=== PATIENT | female | born 1970 | race Caucasian/White ===

== ENCOUNTER 2020-09-22 14:12 | Outpatient (REF) | payer OTHER, SELFPAY | END 2020-09-22 14:13 | disposition home or self-care (01) | LOC: HO.LNP 14:12 | PROVIDERS: Visit Provider Nurse Practitioner Family | DX: J32.9 Chronic sinusitis, unspecified (principal) | CPT/HCPCS: U0003 ==

== ENCOUNTER 2020-11-23 14:10 | Outpatient (REF) | payer OTHER, SELFPAY ==
[2020-11-23 14:30] LABS: COVID-19 Test Negative (Negative); IDNOW Serial# 55D5AD1C
== END 2020-11-23 14:11 | disposition home or self-care (01) ==
LOC: HO.EMPCOV 14:10
PROVIDERS: PCP Internal Medicine; Visit Provider Internal Medicine
DX: Z20.822 Contact with and (suspected) exposure to COVID-19 (principal)
CPT/HCPCS: 36415; 87635; C9803

== ENCOUNTER 2020-11-30 09:41 | Outpatient (REF) | payer OTHER, SELFPAY ==
[2020-11-30 10:02] LABS: COVID-19 Test Negative (Negative)
== END 2020-11-30 09:42 | disposition home or self-care (01) ==
LOC: HO.EMPCOV 09:41
PROVIDERS: Visit Provider Internal Medicine
DX: Z20.822 Contact with and (suspected) exposure to COVID-19 (principal)
CPT/HCPCS: 36415; 87635; C9803

== ENCOUNTER 2020-12-01 14:52 | Outpatient (REF) | payer OTHER, SELFPAY ==
--- NOTE | 2020-12-01 14:58 | XR_ITS ---
EXAMINATION: XR SINUSES CLINICAL INFORMATION: Chronic sinusitis. COMPARISON: None TECHNIQUE: 3 views of the sinuses were obtained. FINDINGS: Paranasal sinuses appear clear without air-fluid levels. No fractures are identified. No radiodense foreign bodies. The paranasal sinuses are well-aerated as well. XR/XR sinus min 3V IMPRESSION: Unremarkable sinus exam.
== END 2020-12-01 14:53 | disposition home or self-care (01) ==
LOC: HO.XRAY 14:52
PROVIDERS: Visit Provider Internal Medicine
DX: J32.9 Chronic sinusitis, unspecified (principal)
CPT/HCPCS: 70220

== ENCOUNTER 2021-02-21 13:57 | Outpatient (REF) | payer OTHER, SELFPAY ==
[2021-02-21 14:16] LABS: COVID-19 Test Negative (Negative)
== END 2021-02-21 13:58 | disposition home or self-care (01) ==
LOC: HO.EMPCOV 13:57
PROVIDERS: Visit Provider Internal Medicine
DX: Z20.822 Contact with and (suspected) exposure to COVID-19 (principal)
CPT/HCPCS: 36415; 87635; C9803

== ENCOUNTER → 2021-02-22 08:01 | Outpatient (BNVA) | payer OTHER, SELFPAY | PROVIDERS: PCP Internal Medicine; Visit Provider Obstetrics & Gynecology ==

== ENCOUNTER → 2021-07-12 11:15 | Outpatient (BNVA) | payer OTHER, SELFPAY | PROVIDERS: PCP Internal Medicine; Visit Provider Obstetrics & Gynecology ==

== ENCOUNTER → 2021-10-20 15:54 | Outpatient (BNVA) | payer OTHER, SELFPAY | PROVIDERS: PCP Internal Medicine; Visit Provider Advanced Practice Midwife ==

== ENCOUNTER → 2021-10-26 15:33 | Outpatient (BNVA) | payer OTHER, SELFPAY | PROVIDERS: PCP Internal Medicine; Visit Provider Advanced Practice Midwife ==

== ENCOUNTER → 2021-10-30 15:26 | Outpatient (BNVA) | payer OTHER, SELFPAY | PROVIDERS: PCP Internal Medicine; Visit Provider Advanced Practice Midwife ==

== ENCOUNTER 2021-11-22 10:00 | Outpatient (REF) | payer OTHER, SELFPAY ==
[2021-11-22 10:15] LABS: MANUAL DIFF FLAG NO
[2021-11-22 10:51] LABS: Basophils Percent Auto 1.2 % (0-2); Eosinophils Absolute Auto 0.1 X10*3/uL (0.0-0.4); Eosinophils Percent Auto 1.8 % (0-4); Hematocrit 26.7 % (37.0-47.0); Hemoglobin 7.5 g/dl (12.0-16.0); Imm Gran Abs Auto 0.01 X10*3/uL (0.00-0.03); Imm Gran Pct Auto 0.3 % (0.0-0.4); Lymphocytes Absolute Auto 1.1 X10*3/uL (1.2-4.9); Lymphocytes Percent Auto 32.2 % (20-40); Mean Corpuscular HGB Conc 28.1 g/dl (31.0-35.0); Mean Corpuscular Hemoglobin 20.2 pg (27.0-33.0); Mean Platelet Volume 9.4 fL (9.4-12.3); Monocytes Absolute Auto 0.3 X10*3/uL (0.1-1.2); Monocytes Percent Auto 8.7 % (2-11); Neutrophils Absolute Auto 1.9 x10*3/uL (2.0-8.3); Neutrophils Percent Auto 55.8 % (45-73); Platelet Count 296 X10*3/uL (160-400); Red Blood Count 3.71 X10*6/uL (4.20-5.50); Red Cell Distribution Width 16.5 % (11.0-16.0); White Blood Count 3.3 X10*3/uL (4.8-10.8)
[2021-11-22 11:32] LABS: Alanine Aminotransferase 19 U/L (0-31); Anion Gap 11 (12-20); Aspartate Amino Transferase 22 U/L (5-31); Blood Urea Nitrogen 15 mg/dL (9-16); Calcium 9.4 mg/dL (8.4-10.2); Carbon Dioxide 28 mmol/L (22-29); Chloride 103 mmol/L (96-108); Cholesterol 154 mg/dL; Estimated Glomerular Filt Rate > 60; Glucose Fasting 93 mg/dL (60-99); HDL Cholesterol 47 mg/dL; LDL Cholesterol Calculated 90 mg/dl; Potassium 3.4 mmol/L (3.3-5.1); Sodium 139 mmol/L (135-145); Triglycerides 88 mg/dL
[2021-11-22 11:45] LABS: TSH reflex Free T4 1.09 uIU/mL (0.32-4.0); Vitamin D 25-OH Total 29.8 ng/mL (>30)
== END 2021-11-22 10:01 | disposition home or self-care (01) ==
LOC: HO.LAB 10:00
PROVIDERS: PCP Internal Medicine; Visit Provider Internal Medicine
DX: Z00.01 Encounter for general adult medical examination with abnormal findings (principal); K58.9 Irritable bowel syndrome, unspecified; I10 Essential (primary) hypertension; E28.319 Asymptomatic premature menopause; I78.0 Hereditary hemorrhagic telangiectasia; E04.9 Nontoxic goiter, unspecified; E55.9 Vitamin D deficiency, unspecified; F41.8 Other specified anxiety disorders
CPT/HCPCS: 36415; 80048; 80061; 82306; 84443; 84450; 84460; 85025

== ENCOUNTER 2021-11-22 15:42 | Emergency (ER) | payer OTHER, SELFPAY ==
[2021-11-22 16:34] VITALS: BP 138/82; PULSE 92; RESP 18; TEMP 36.8; O2SAT 98; BMI 22.6
[2021-11-22 16:52] LABS: MANUAL DIFF FLAG NO
[2021-11-22 16:53] LABS: Basophils Percent Auto 0.9 % (0-2); Eosinophils Absolute Auto 0.1 X10*3/uL (0.0-0.4); Eosinophils Percent Auto 1.4 % (0-4); Hematocrit 25.3 % (37.0-47.0); Hemoglobin 7.3 g/dl (12.0-16.0); Imm Gran Abs Auto 0.01 X10*3/uL (0.00-0.03); Imm Gran Pct Auto 0.2 % (0.0-0.4); Lymphocytes Absolute Auto 1.6 X10*3/uL (1.2-4.9); Lymphocytes Percent Auto 37.4 % (20-40); Mean Corpuscular HGB Conc 28.9 g/dl (31.0-35.0); Mean Corpuscular Hemoglobin 20.5 pg (27.0-33.0); Mean Corpuscular Volume 71.1 fL (80.0-98.0); Mean Platelet Volume 8.4 fL (9.4-12.3); Monocytes Absolute Auto 0.4 X10*3/uL (0.1-1.2); Monocytes Percent Auto 9.6 % (2-11); Neutrophils Absolute Auto 2.2 x10*3/uL (2.0-8.3); Neutrophils Percent Auto 50.5 % (45-73); Platelet Count 261 X10*3/uL (160-400); Red Blood Count 3.56 X10*6/uL (4.20-5.50); Red Cell Distribution Width 16.7 % (11.0-16.0); White Blood Count 4.4 X10*3/uL (4.8-10.8)
[2021-11-22 17:15] LABS: Anion Gap 12 (12-20); Blood Urea Nitrogen 16 mg/dL (9-16); Calcium 9.4 mg/dL (8.4-10.2); Carbon Dioxide 27 mmol/L (22-29); Chloride 103 mmol/L (96-108); Creatinine Clr Calc Pharmacy 66.9; Estimated Glomerular Filt Rate > 60; Glucose Random 97 mg/dL (60-115); Potassium 3.1 mmol/L (3.3-5.1); Sodium 139 mmol/L (135-145)
== END 2021-11-22 20:12 | disposition left against medical advice (07) ==
PROVIDERS: Emergency Provider Emergency Medicine
DX: D64.9 Anemia, unspecified (principal); R10.9 Unspecified abdominal pain; I10 Essential (primary) hypertension
CPT/HCPCS: 36415; 80048; 85025; 99282; 99283

== ENCOUNTER → 2021-11-24 09:36 | Outpatient (BNV) | payer OTHER, SELFPAY | PROVIDERS: PCP Internal Medicine; Visit Provider Internal Medicine | DX: I78.0 Hereditary hemorrhagic telangiectasia (principal); D50.0 Iron deficiency anemia secondary to blood loss (chronic) | CPT/HCPCS: 99213; 99214 ==

== ENCOUNTER 2021-11-24 11:57 | Outpatient (REF) | payer OTHER, SELFPAY | END 2021-11-24 11:58 | disposition home or self-care (01) | LOC: HO.MDS 11:57 | PROVIDERS: Visit Provider Internal Medicine | DX: D50.9 Iron deficiency anemia, unspecified (principal); I78.0 Hereditary hemorrhagic telangiectasia | CPT/HCPCS: 96365; J2916; Q0163 ==

== ENCOUNTER 2021-11-29 07:31 | Outpatient (REF) | payer OTHER, SELFPAY | END 2021-11-29 07:32 | disposition home or self-care (01) | LOC: HO.MDS 07:31 | PROVIDERS: PCP Internal Medicine; Visit Provider Internal Medicine | DX: I78.0 Hereditary hemorrhagic telangiectasia (principal); D50.9 Iron deficiency anemia, unspecified | CPT/HCPCS: 96365; 96366; 96375; J1200; J1750; Q0163 ==

== ENCOUNTER 2021-12-01 10:56 | Outpatient (REF) | payer OTHER, SELFPAY ==
--- NOTE | ~2021-12-01 | US_ITS ---
EXAMINATION: US THYROID CLINICAL INFORMATION: Nontoxic goiter, unspecified. COMPARISON: None TECHNIQUE: Linear transducer henson-scale and color Doppler examination with attention to the region of the thyroid. FINDINGS: SIZE: Measurements of the thyroid lobes and nodules are given in sagittal, anteroposterior and transverse dimensions respectively. Right Thyroid Lobe: 6.9 x 2.7 x 3.6 cm, volume 35.1 mL. Parenchyma: The gland echotexture is heterogeneous. Thyroid vascularity is increased. Left Thyroid Lobe: 5.5 x 1.9 x 2.3 cm, volume 12.6 mL. Parenchyma: The gland echotexture is heterogeneous. Thyroid vascularity is increased. Isthmus: 0.6 cm in maximum AP dimension. Estimated total number of nodules greater than or equal to 1 cm: 2. Instructor Private nodules are described as follows: 1. Location: Right mid. Size: 3.6 x 2.6 x 4.2 cm, volume 20.4 mL. Nodule characteristics: Composition: Solid (2). Echogenicity: Hyperechoic (1). Shape: Not taller than wide (0). Margins: Smooth (0). Echogenic Foci: None (0). ACR TI-RADS total points: 3 ACR TI-RADS category: 3 2. Location: Left mid. Size: 2.3 x 1.7 x 2.8 cm, volume 5.4 mL. Nodule characteristics: Composition: Mixed cystic and solid (1). Echogenicity: Isoechoic (1). Shape: Not taller than wide (0). Margins: Smooth (0). Echogenic Foci: None (0). ACR TI-RADS total points: 2 ACR TI-RADS category: 2 NODES: No lymphadenopathy is seen in the tissue surrounding the thyroid gland. US/US thyroid IMPRESSION: Hypervascular significantly enlarged heterogeneous thyroid gland especially right lobe with 2 heterogeneous enlarged nodules with TI-RADS 3 and 2 respectively. Recommend continued yearly followup. ACR TI-RADS RECOMMENDATION REFERENCE: Ultrasound-guided fine-needle aspiration, followup ultrasound, no further follow up. * TR1 (0 point) and TR 2 (2 points): No FNA or follow up * TR3 (3 points): FNA if more than or equal to 2.5 cm in maximum dimension, followup ultrasound in 1, 3 and 5 years if 1.5 to 2.4 cm in maximum dimension. * TR4 (4-6 points): FNA if more than or equal to 1.5 cm in maximum dimension, followup ultrasound in 1, 2, 3 and 5 years if 1 to 1.4 cm in maximum dimension. * TR5 (more than or equal to 7 points): FNA if more than or equal to 1 cm in maximum dimension, followup ultrasound every year for 5 years if 0.5 to 0.9 cm in maximum dimension. * TR3, TR4 or TR5 nodules that are below the size threshold for follow up receive no follow up.
== END 2021-12-01 10:57 | disposition home or self-care (01) ==
LOC: HO.US 10:56
PROVIDERS: PCP Internal Medicine; Visit Provider Internal Medicine
DX: E04.9 Nontoxic goiter, unspecified (principal)
CPT/HCPCS: 76536

== ENCOUNTER → 2022-03-02 08:48 | Outpatient (BNVA) | payer OTHER, SELFPAY | PROVIDERS: PCP Internal Medicine; Visit Provider Internal Medicine Endocrinology, Diabetes & Metabolism | DX: Z13.89 Encounter for screening for other disorder (principal) ==

== ENCOUNTER 2022-03-13 11:43 | Outpatient (REF) | payer OTHER, SELFPAY ==
[2022-03-13 12:02] LABS: MANUAL DIFF FLAG NO
[2022-03-13 12:11] LABS: Basophils Percent Auto 0.8 % (0-2); Eosinophils Absolute Auto 0.1 X10*3/uL (0.0-0.4); Eosinophils Percent Auto 1.4 % (0-4); Hematocrit 37.3 % (37.0-47.0); Hemoglobin 12.2 g/dl (12.0-16.0); Imm Gran Abs Auto 0.01 X10*3/uL (0.00-0.03); Imm Gran Pct Auto 0.2 % (0.0-0.4); Lymphocytes Absolute Auto 1.5 X10*3/uL (1.2-4.9); Lymphocytes Percent Auto 31.9 % (20-40); Mean Corpuscular HGB Conc 32.7 g/dl (31.0-35.0); Mean Corpuscular Hemoglobin 28.9 pg (27.0-33.0); Mean Corpuscular Volume 88.4 fL (80.0-98.0); Monocytes Absolute Auto 0.5 X10*3/uL (0.1-1.2); Monocytes Percent Auto 9.7 % (2-11); Neutrophils Absolute Auto 2.7 x10*3/uL (2.0-8.3); Platelet Count 287 X10*3/uL (160-400); Red Blood Count 4.22 X10*6/uL (4.20-5.50); Red Cell Distribution Width 12.7 % (11.0-16.0); White Blood Count 4.8 X10*3/uL (4.8-10.8)
[2022-03-13 12:43] LABS: Alanine Aminotransferase 22 U/L (0-31); Albumin Level 3.9 g/dL (3.5-5.0); Alkaline Phosphatase 104 U/L (39-117); Anion Gap 12 (12-20); Aspartate Amino Transferase 25 U/L (5-31); Bilirubin Total 0.3 mg/dL (0.0-1.0); Blood Urea Nitrogen 14 mg/dL (9-16); Calcium 9.6 mg/dL (8.4-10.2); Carbon Dioxide 29 mmol/L (22-29); Chloride 104 mmol/L (96-108); Estimated Glomerular Filt Rate > 60; Glucose Random 91 mg/dL (60-115); Iron 99 mcg/dL (30-160); Percent Iron Saturation 25 % (15-50); Phosphorus 3.8 mg/dL (2.7-4.5); Sodium 141 mmol/L (135-145); Total Iron Binding Capacity 400 mcg/dL (228-428); Unsaturated Iron Binding 301 ug/dL
[2022-03-13 12:48] LABS: Prothrombin Time 11.8 SEC (9.9-13.0)
[2022-03-13 12:51] LABS: Partial Thromboplastin Time 34.7 SEC (24.1-38.0)
[2022-03-13 12:57] LABS: Ferritin 8 ng/mL (10-250); HCG Quantitative < 2 mIU/mL
== END 2022-03-13 11:44 | disposition home or self-care (01) ==
LOC: HO.LAB 11:43
PROVIDERS: PCP Internal Medicine; Visit Provider Internal Medicine Hematology & Oncology
DX: I78.0 Hereditary hemorrhagic telangiectasia (principal)
CPT/HCPCS: 36415; 80053; 82728; 83540; 84100; 84702; 85025; 85610; 85730

== ENCOUNTER 2022-03-21 10:46 | Outpatient (REF) | payer OTHER, SELFPAY ==
--- NOTE | ~2022-03-21 | US_ITS ---
EXAMINATION: ULTRASOUND-GUIDED FINE-NEEDLE ASPIRATION OF THYROID NODULES CLINICAL INFORMATION: 2 heterogeneous thyroid nodules COMPARISON: Ultrasound thyroid 12/01/2021 US/US guided fine needle asp add FINDINGS/IMPRESSION: Ultrasound guided fine-needle biopsy aspiration of both thyroid nodules was dictated on accession number is [id number] [facility] [place] [facility] [place]
--- NOTE | ~2022-03-21 | US_ITS ---
EXAMINATION: ULTRASOUND-GUIDED FINE NEEDLE THYROID BIOPSY CLINICAL INFORMATION: Heterogeneous thyroid gland with 2 large nodules in the right and left thyroid lobe for biopsy. COMPARISON: Thyroid ultrasound 12/01/2021. TECHNIQUE: Following explaining ultrasound-guided fine-needle aspiration biopsy procedure, benefits and risks, a written consent was obtained. Patient was placed supine with head extended on ultrasound stretcher. Preliminary ultrasound imaging was obtained through the right and left neck. Markers were placed on the skin prior to biopsy. The entire anterior neck was cleaned and draped in usual sterile manner with 2% chlorhexidine solution. 1% lidocaine was administered over the right and left neck markers. Under sterile ultrasound guidance a 4 pass fine-needle aspiration of left thyroid nodule was performed. Subsequently a 3 pass fine-needle aspiration biopsy of right nodule was performed. Postprocedure complete hemostasis achieved at anterior neck and Band-Aid applied. Instructions were given in case patient had pain or bleeding. FINDINGS: There are large heterogeneous right and left thyroid nodules. Successful ultrasound-guided fine-needle aspiration biopsy. Preliminary pathology results suspicious cells in the left thyroid nodule. Definite results are pending. US/US guided fine needle asp IMPRESSION: Successful ultrasound-guided fine-needle aspiration biopsy of large left and large right thyroid nodules.
[2022-03-21] MEDS: Lidocaine HCl 1 % MPF 5 ML VIAL 4 ML SUBCUT (12:04)
== END 2022-03-21 10:47 | disposition home or self-care (01) ==
LOC: HO.US 10:46
PROVIDERS: Visit Provider Internal Medicine Endocrinology, Diabetes & Metabolism
DX: E04.2 Nontoxic multinodular goiter (principal)
CPT/HCPCS: 10005; 10006; 88172; 88173; 88177; 88305

== ENCOUNTER 2022-04-12 15:18 | Outpatient (REF) | payer OTHER, SELFPAY ==
[2022-04-12 15:38] LABS: MANUAL DIFF FLAG NO
[2022-04-12 15:45] LABS: Basophils Percent Auto 0.6 % (0-2); Eosinophils Absolute Auto 0.1 X10*3/uL (0.0-0.4); Eosinophils Percent Auto 1.6 % (0-4); Hematocrit 35.1 % (37.0-47.0); Hemoglobin 11.3 g/dl (12.0-16.0); Imm Gran Abs Auto 0.02 X10*3/uL (0.00-0.03); Imm Gran Pct Auto 0.3 % (0.0-0.4); Lymphocytes Absolute Auto 1.7 X10*3/uL (1.2-4.9); Lymphocytes Percent Auto 27.1 % (20-40); Mean Corpuscular HGB Conc 32.2 g/dl (31.0-35.0); Mean Corpuscular Hemoglobin 28.9 pg (27.0-33.0); Mean Corpuscular Volume 89.8 fL (80.0-98.0); Mean Platelet Volume 8.7 fL (9.4-12.3); Monocytes Absolute Auto 0.5 X10*3/uL (0.1-1.2); Monocytes Percent Auto 8.8 % (2-11); Neutrophils Absolute Auto 3.8 x10*3/uL (2.0-8.3); Neutrophils Percent Auto 61.6 % (45-73); Platelet Count 309 X10*3/uL (160-400); Red Blood Count 3.91 X10*6/uL (4.20-5.50); Red Cell Distribution Width 13.2 % (11.0-16.0); White Blood Count 6.2 X10*3/uL (4.8-10.8)
[2022-04-12 16:17] LABS: Alanine Aminotransferase 33 U/L (0-31); Albumin Level 3.7 g/dL (3.5-5.0); Alkaline Phosphatase 92 U/L (39-117); Anion Gap 12 (12-20); Aspartate Amino Transferase 28 U/L (5-31); Bilirubin Total 0.2 mg/dL (0.0-1.0); Blood Urea Nitrogen 13 mg/dL (9-16); Calcium 9.1 mg/dL (8.4-10.2); Carbon Dioxide 25 mmol/L (22-29); Chloride 107 mmol/L (96-108); Estimated Glomerular Filt Rate > 60; Glucose Random 123 mg/dL (60-115); Iron 35 mcg/dL (30-160); Percent Iron Saturation 9 % (15-50); Potassium 3.9 mmol/L (3.3-5.1); Sodium 140 mmol/L (135-145); Total Iron Binding Capacity 386 mcg/dL (228-428); Total Protein 6.6 g/dL (6.5-8.0); Unsaturated Iron Binding 351 ug/dL
[2022-04-12 16:39] LABS: Ferritin 10 ng/mL (10-250); HCG Quantitative < 2 mIU/mL
== END 2022-04-12 15:19 | disposition home or self-care (01) ==
LOC: HO.LAB 15:18
PROVIDERS: PCP Internal Medicine; Visit Provider Internal Medicine Hematology & Oncology
DX: I78.0 Hereditary hemorrhagic telangiectasia (principal)
CPT/HCPCS: 36415; 80053; 82728; 83540; 84702; 85025

== ENCOUNTER 2022-04-13 07:50 | Outpatient (REF) | payer OTHER, SELFPAY | END 2022-04-13 07:51 | disposition home or self-care (01) | LOC: HO.MDS 07:50 | PROVIDERS: PCP Internal Medicine; Visit Provider Internal Medicine | DX: D50.9 Iron deficiency anemia, unspecified (principal); I78.0 Hereditary hemorrhagic telangiectasia | CPT/HCPCS: 96365; 96366; J1200; J1750; Q0163 ==

== ENCOUNTER 2022-05-10 12:02 | Outpatient (REF) | payer OTHER, SELFPAY ==
[2022-05-10 12:32] LABS: MANUAL DIFF FLAG NO
[2022-05-10 12:39] LABS: Basophils Percent Auto 0.7 % (0-2); Eosinophils Absolute Auto 0.1 X10*3/uL (0.0-0.4); Eosinophils Percent Auto 1.5 % (0-4); Hematocrit 38.3 % (37.0-47.0); Hemoglobin 12.5 g/dl (12.0-16.0); Imm Gran Abs Auto 0.01 X10*3/uL (0.00-0.03); Imm Gran Pct Auto 0.2 % (0.0-0.4); Lymphocytes Absolute Auto 1.5 X10*3/uL (1.2-4.9); Lymphocytes Percent Auto 32.7 % (20-40); Mean Corpuscular HGB Conc 32.6 g/dl (31.0-35.0); Mean Corpuscular Hemoglobin 29.2 pg (27.0-33.0); Mean Corpuscular Volume 89.5 fL (80.0-98.0); Monocytes Absolute Auto 0.4 X10*3/uL (0.1-1.2); Monocytes Percent Auto 9.5 % (2-11); Neutrophils Absolute Auto 2.5 x10*3/uL (2.0-8.3); Neutrophils Percent Auto 55.4 % (45-73); Platelet Count 249 X10*3/uL (160-400); Red Blood Count 4.28 X10*6/uL (4.20-5.50); Red Cell Distribution Width 14.5 % (11.0-16.0); White Blood Count 4.5 X10*3/uL (4.8-10.8)
[2022-05-10 12:53] LABS: Alanine Aminotransferase 30 U/L (0-31); Albumin Level 3.8 g/dL (3.5-5.0); Alkaline Phosphatase 118 U/L (39-117); Anion Gap 11 (12-20); Aspartate Amino Transferase 29 U/L (5-31); Bilirubin Total 0.2 mg/dL (0.0-1.0); Blood Urea Nitrogen 14 mg/dL (9-16); Calcium 8.6 mg/dL (8.4-10.2); Carbon Dioxide 29 mmol/L (22-29); Chloride 104 mmol/L (96-108); Estimated Glomerular Filt Rate > 60; Glucose Random 95 mg/dL (60-115); Iron 70 mcg/dL (30-160); Percent Iron Saturation 25 % (15-50); Potassium 3.9 mmol/L (3.3-5.1); Sodium 140 mmol/L (135-145); Total Iron Binding Capacity 282 mcg/dL (228-428); Total Protein 6.3 g/dL (6.5-8.0); Unsaturated Iron Binding 212 ug/dL
[2022-05-10 13:13] LABS: Ferritin 165 ng/mL (10-250); HCG Quantitative < 2 mIU/mL
== END 2022-05-10 12:03 | disposition home or self-care (01) ==
LOC: HO.LAB 12:02
PROVIDERS: PCP Internal Medicine; Visit Provider Internal Medicine Hematology & Oncology
DX: I78.0 Hereditary hemorrhagic telangiectasia (principal)
CPT/HCPCS: 36415; 80053; 82728; 83540; 84702; 85025

== ENCOUNTER 2022-05-30 12:22 | Outpatient (REF) | payer OTHER, SELFPAY ==
[2022-05-30 13:23] LABS: Alanine Aminotransferase 41 U/L (0-31); Albumin Level 4.1 g/dL (3.5-5.0); Alkaline Phosphatase 136 U/L (39-117); Anion Gap 11 (12-20); Aspartate Amino Transferase 30 U/L (5-31); Bilirubin Total 0.3 mg/dL (0.0-1.0); Blood Urea Nitrogen 14 mg/dL (9-16); Calcium 9.4 mg/dL (8.4-10.2); Carbon Dioxide 29 mmol/L (22-29); Chloride 104 mmol/L (96-108); Estimated Glomerular Filt Rate > 60; Glucose Random 96 mg/dL (60-115); Potassium 3.8 mmol/L (3.3-5.1); Sodium 140 mmol/L (135-145)
[2022-05-30 13:37] LABS: Vitamin D 25-OH Total 32.6 ng/mL (>30)
== END 2022-05-30 12:23 | disposition home or self-care (01) ==
LOC: HO.LAB 12:22
PROVIDERS: PCP Internal Medicine; Visit Provider Internal Medicine
DX: I78.0 Hereditary hemorrhagic telangiectasia (principal); E55.9 Vitamin D deficiency, unspecified
CPT/HCPCS: 36415; 80053; 82306; 82550

== ENCOUNTER 2022-06-08 12:38 | Outpatient (REF) | payer OTHER, SELFPAY ==
[2022-06-08 12:43] LABS: MANUAL DIFF FLAG NO
[2022-06-08 13:02] LABS: Basophils Percent Auto 0.7 % (0-2); Eosinophils Absolute Auto 0.1 X10*3/uL (0.0-0.4); Eosinophils Percent Auto 1.3 % (0-4); Hematocrit 38.1 % (37.0-47.0); Imm Gran Abs Auto 0.01 X10*3/uL (0.00-0.03); Imm Gran Pct Auto 0.2 % (0.0-0.4); Lymphocytes Absolute Auto 1.7 X10*3/uL (1.2-4.9); Lymphocytes Percent Auto 31.7 % (20-40); Mean Corpuscular HGB Conc 34.1 g/dl (31.0-35.0); Mean Corpuscular Hemoglobin 29.6 pg (27.0-33.0); Mean Corpuscular Volume 86.8 fL (80.0-98.0); Mean Platelet Volume 8.9 fL (9.4-12.3); Monocytes Absolute Auto 0.5 X10*3/uL (0.1-1.2); Monocytes Percent Auto 8.6 % (2-11); Neutrophils Absolute Auto 3.1 x10*3/uL (2.0-8.3); Neutrophils Percent Auto 57.5 % (45-73); Platelet Count 290 X10*3/uL (160-400); Red Blood Count 4.39 X10*6/uL (4.20-5.50); Red Cell Distribution Width 13.2 % (11.0-16.0); White Blood Count 5.4 X10*3/uL (4.8-10.8)
[2022-06-08 13:30] LABS: Alanine Aminotransferase 28 U/L (0-31); Alkaline Phosphatase 123 U/L (39-117); Anion Gap 14 (12-20); Aspartate Amino Transferase 28 U/L (5-31); Bilirubin Total 0.2 mg/dL (0.0-1.0); Blood Urea Nitrogen 13 mg/dL (9-16); Calcium 9.2 mg/dL (8.4-10.2); Carbon Dioxide 29 mmol/L (22-29); Chloride 102 mmol/L (96-108); Estimated Glomerular Filt Rate > 60; Glucose Random 94 mg/dL (60-115); Iron 91 mcg/dL (30-160); Percent Iron Saturation 29 % (15-50); Potassium 3.7 mmol/L (3.3-5.1); Sodium 141 mmol/L (135-145); Total Iron Binding Capacity 319 mcg/dL (228-428); Total Protein 6.8 g/dL (6.5-8.0); Unsaturated Iron Binding 228 ug/dL
[2022-06-08 13:52] LABS: Ferritin 47 ng/mL (10-250); HCG Quantitative < 2 mIU/mL
== END 2022-06-08 12:39 | disposition home or self-care (01) ==
LOC: HO.LAB 12:38
PROVIDERS: PCP Internal Medicine; Visit Provider Internal Medicine Hematology & Oncology
DX: I78.0 Hereditary hemorrhagic telangiectasia (principal)
CPT/HCPCS: 36415; 80053; 82728; 83540; 84702; 85025

== ENCOUNTER 2022-07-09 10:34 | Outpatient (REF) | payer OTHER, SELFPAY ==
[2022-07-09 10:46] LABS: MANUAL DIFF FLAG NO
[2022-07-09 11:36] LABS: Basophils Percent Auto 0.9 % (0-2); Eosinophils Absolute Auto 0.1 X10*3/uL (0.0-0.4); Eosinophils Percent Auto 2.1 % (0-4); Hematocrit 35.9 % (37.0-47.0); Hemoglobin 11.9 g/dl (12.0-16.0); Imm Gran Abs Auto 0.01 X10*3/uL (0.00-0.03); Imm Gran Pct Auto 0.2 % (0.0-0.4); Lymphocytes Absolute Auto 1.3 X10*3/uL (1.2-4.9); Lymphocytes Percent Auto 30.7 % (20-40); Mean Corpuscular HGB Conc 33.1 g/dl (31.0-35.0); Mean Corpuscular Hemoglobin 29.5 pg (27.0-33.0); Mean Corpuscular Volume 89.1 fL (80.0-98.0); Mean Platelet Volume 9.3 fL (9.4-12.3); Monocytes Absolute Auto 0.4 X10*3/uL (0.1-1.2); Monocytes Percent Auto 8.2 % (2-11); Neutrophils Absolute Auto 2.5 x10*3/uL (2.0-8.3); Neutrophils Percent Auto 57.9 % (45-73); Platelet Count 280 X10*3/uL (160-400); Red Blood Count 4.03 X10*6/uL (4.20-5.50); Red Cell Distribution Width 13.2 % (11.0-16.0); White Blood Count 4.4 X10*3/uL (4.8-10.8)
[2022-07-09 12:10] LABS: Alanine Aminotransferase 24 U/L (0-31); Albumin Level 3.8 g/dL (3.5-5.0); Alkaline Phosphatase 120 U/L (39-117); Anion Gap 13 (12-20); Aspartate Amino Transferase 25 U/L (5-31); Bilirubin Total 0.2 mg/dL (0.0-1.0); Blood Urea Nitrogen 10 mg/dL (9-16); Carbon Dioxide 26 mmol/L (22-29); Chloride 106 mmol/L (96-108); Estimated Glomerular Filt Rate > 60; Glucose Random 84 mg/dL (60-115); Iron 43 mcg/dL (30-160); Percent Iron Saturation 12 % (15-50); Potassium 3.7 mmol/L (3.3-5.1); Sodium 141 mmol/L (135-145); Total Iron Binding Capacity 353 mcg/dL (228-428); Total Protein 6.6 g/dL (6.5-8.0); Unsaturated Iron Binding 310 ug/dL
[2022-07-09 12:32] LABS: Ferritin 14 ng/mL (10-250); HCG Quantitative < 2 mIU/mL
== END 2022-07-09 10:35 | disposition home or self-care (01) ==
LOC: HO.LAB 10:34
PROVIDERS: PCP Internal Medicine; Visit Provider Internal Medicine Hematology & Oncology
DX: I78.0 Hereditary hemorrhagic telangiectasia (principal)
CPT/HCPCS: 36415; 80053; 82728; 83540; 84702; 85025

== ENCOUNTER 2022-08-07 13:23 | Outpatient (REF) | payer OTHER, SELFPAY ==
[2022-08-07 13:36] LABS: MANUAL DIFF FLAG NO
[2022-08-07 14:20] LABS: Basophils Percent Auto 0.6 % (0-2); Eosinophils Absolute Auto 0.1 X10*3/uL (0.0-0.4); Eosinophils Percent Auto 2.1 % (0-4); Hematocrit 35.9 % (37.0-47.0); Hemoglobin 12.1 g/dl (12.0-16.0); Imm Gran Abs Auto 0.04 X10*3/uL (0.00-0.03); Imm Gran Pct Auto 0.8 % (0.0-0.4); Lymphocytes Absolute Auto 1.7 X10*3/uL (1.2-4.9); Lymphocytes Percent Auto 34.7 % (20-40); Mean Corpuscular HGB Conc 33.7 g/dl (31.0-35.0); Mean Corpuscular Hemoglobin 29.4 pg (27.0-33.0); Mean Corpuscular Volume 87.3 fL (80.0-98.0); Mean Platelet Volume 9.4 fL (9.4-12.3); Monocytes Absolute Auto 0.4 X10*3/uL (0.1-1.2); Monocytes Percent Auto 8.4 % (2-11); Neutrophils Absolute Auto 2.6 x10*3/uL (2.0-8.3); Neutrophils Percent Auto 53.4 % (45-73); Platelet Count 295 X10*3/uL (160-400); Red Blood Count 4.11 X10*6/uL (4.20-5.50); Red Cell Distribution Width 12.5 % (11.0-16.0); White Blood Count 4.8 X10*3/uL (4.8-10.8)
[2022-08-07 14:40] LABS: Alanine Aminotransferase 18 U/L (0-31); Alkaline Phosphatase 127 U/L (39-117); Anion Gap 15 (12-20); Aspartate Amino Transferase 22 U/L (5-31); Bilirubin Total 0.3 mg/dL (0.0-1.0); Blood Urea Nitrogen 8 mg/dL (9-16); Calcium 9.3 mg/dL (8.4-10.2); Carbon Dioxide 24 mmol/L (22-29); Chloride 108 mmol/L (96-108); Estimated Glomerular Filt Rate > 60; Glucose Random 81 mg/dL (60-115); Iron 34 mcg/dL (30-160); Percent Iron Saturation 10 % (15-50); Sodium 143 mmol/L (135-145); Total Iron Binding Capacity 357 mcg/dL (228-428); Total Protein 6.9 g/dL (6.5-8.0); Unsaturated Iron Binding 323 ug/dL
[2022-08-07 14:52] LABS: Ferritin 10 ng/mL (10-250); HCG Quantitative < 2 mIU/mL
== END 2022-08-07 13:24 | disposition home or self-care (01) ==
LOC: HO.LAB 13:23
PROVIDERS: PCP Internal Medicine; Visit Provider Internal Medicine Hematology & Oncology
DX: I78.0 Hereditary hemorrhagic telangiectasia (principal)
CPT/HCPCS: 36415; 80053; 82728; 83540; 84702; 85025

== ENCOUNTER 2022-09-26 10:38 | Outpatient (REF) | payer OTHER, SELFPAY ==
--- NOTE | 2022-09-26 11:22 | P.BOP_ITS ---
Brief Operative Note Date of Service: 09/26/22 Pre-op diagnosis: Multinodular Thyroid Procedure: This is doctor Rosa Carlton. This is an ultrasound-guided fine-needle aspiration report. Date of Examination: Indication: Multinodular Thyroid Porcedure: Procedure was explained to the patient. Alternatives, the risk and benefits were discussed. Written consent was obtained. A time-out was also obtained. After sterile preparation, fine-needle aspiration of a left mid pole 2.8 cm thyroid nodule was performed using direct ultrasound guidance to confirm accurate needle placement. Four aspirations were made using 25 gauge needles. Samples were submitted for cytology. 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 Our attention was then turned to the right mid pole. Fine-needle aspiration of a right mid pole 4.2 cm thyroid nodule was performed using direct ultrasound guidance to confirm accurate needle placement. Four aspirations were made using 27 gauge needles. Samples were submitted for cytology. 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 The patient tolerated the procedure well. Aftercare instructions were provided. Impression: Uncomplicated fine needle aspiration biopsy of a left mid pole 2.8 cm thyroid nodule and a right mid pole 4.2 cm thyroid nodule under ultrasound guidance. Surgeon: Rosa Carlton, DO Was an Environmental Studies Faculty Member used for this Procedure?: No Estimated blood loss (mL): 0
[2022-09-26] MEDS: Lidocaine HCl 1 % MPF 5 ML VIAL SUBCUT (11:40)
== END 2022-09-26 10:39 | disposition home or self-care (01) ==
LOC: HO.US 10:38
PROVIDERS: Visit Provider Internal Medicine Endocrinology, Diabetes & Metabolism
DX: E04.1 Nontoxic single thyroid nodule (principal)
CPT/HCPCS: 10005; 10006; 88172; 88173; 88177; 88305

== ENCOUNTER 2022-10-03 13:47 | Outpatient (REF) | payer OTHER, SELFPAY ==
[2022-10-03 13:59] LABS: MANUAL DIFF FLAG NO
[2022-10-03 14:40] LABS: Basophils Absolute Auto 0.1 X10*3/uL (0.0-0.2); Basophils Percent Auto 0.8 % (0-2); Eosinophils Absolute Auto 0.1 X10*3/uL (0.0-0.4); Eosinophils Percent Auto 1.8 % (0-4); Hematocrit 35.6 % (37.0-47.0); Hemoglobin 11.3 g/dl (12.0-16.0); Imm Gran Abs Auto 0.01 X10*3/uL (0.00-0.03); Imm Gran Pct Auto 0.2 % (0.0-0.4); Lymphocytes Absolute Auto 1.9 X10*3/uL (1.2-4.9); Lymphocytes Percent Auto 29.6 % (20-40); Mean Corpuscular HGB Conc 31.7 g/dl (31.0-35.0); Mean Corpuscular Hemoglobin 27.5 pg (27.0-33.0); Mean Corpuscular Volume 86.6 fL (80.0-98.0); Mean Platelet Volume 9.3 fL (9.4-12.3); Monocytes Absolute Auto 0.5 X10*3/uL (0.1-1.2); Monocytes Percent Auto 8.2 % (2-11); Neutrophils Absolute Auto 3.7 x10*3/uL (2.0-8.3); Neutrophils Percent Auto 59.4 % (45-73); Platelet Count 320 X10*3/uL (160-400); Red Blood Count 4.11 X10*6/uL (4.20-5.50); Red Cell Distribution Width 13.2 % (11.0-16.0); White Blood Count 6.3 X10*3/uL (4.8-10.8)
[2022-10-03 15:07] LABS: Alanine Aminotransferase 21 U/L (0-31); Albumin Level 3.9 g/dL (3.5-5.0); Alkaline Phosphatase 131 U/L (39-117); Anion Gap 12 (12-20); Aspartate Amino Transferase 26 U/L (5-31); Bilirubin Total 0.2 mg/dL (0.0-1.0); Blood Urea Nitrogen 14 mg/dL (9-16); Carbon Dioxide 26 mmol/L (22-29); Chloride 107 mmol/L (96-108); Estimated Glomerular Filt Rate > 60; Glucose Random 86 mg/dL (60-115); Potassium 3.8 mmol/L (3.3-5.1); Sodium 141 mmol/L (135-145); Total Protein 6.8 g/dL (6.5-8.0)
== END 2022-10-03 13:48 | disposition home or self-care (01) ==
LOC: HO.LAB 13:47
PROVIDERS: PCP Internal Medicine; Visit Provider Internal Medicine Hematology & Oncology
DX: I78.0 Hereditary hemorrhagic telangiectasia (principal)
CPT/HCPCS: 36415; 80053; 85025

== ENCOUNTER 2022-10-08 11:34 | Outpatient (REF) | payer OTHER, SELFPAY ==
[2022-10-08 12:11] LABS: Hematocrit 37.4 % (37.0-47.0); Hemoglobin 12.2 g/dl (12.0-16.0); Mean Corpuscular HGB Conc 32.6 g/dl (31.0-35.0); Mean Corpuscular Hemoglobin 27.9 pg (27.0-33.0); Mean Corpuscular Volume 85.4 fL (80.0-98.0); Mean Platelet Volume 9.1 fL (9.4-12.3); Platelet Count 345 X10*3/uL (160-400); Red Blood Count 4.38 X10*6/uL (4.20-5.50); Red Cell Distribution Width 13.2 % (11.0-16.0); White Blood Count 5.2 X10*3/uL (4.8-10.8)
[2022-10-08 13:12] LABS: Ferritin 10 ng/mL (10-250)
== END 2022-10-08 11:35 | disposition home or self-care (01) ==
LOC: HO.LAB 11:34
PROVIDERS: PCP Internal Medicine; Visit Provider Internal Medicine
DX: D64.9 Anemia, unspecified (principal)
CPT/HCPCS: 36415; 82728; 85027

== ENCOUNTER 2022-10-09 08:40 | Outpatient (REF) | payer OTHER, SELFPAY ==
[2022-10-09 11:11] LABS: Free T4 (Free Thyroxine) 0.94 ng/dL (0.71-1.85); Thyroid Stimulating Hormone 1.23 uIU/mL (0.32-4.0)
[2022-10-09 14:47] LABS: Cortisol Random 7.2 ug/dL
== END 2022-10-09 08:41 | disposition home or self-care (01) ==
LOC: HO.LAB 08:40
PROVIDERS: PCP Internal Medicine; Visit Provider Internal Medicine Endocrinology, Diabetes & Metabolism
DX: E04.1 Nontoxic single thyroid nodule (principal)
CPT/HCPCS: 36415; 82533; 84439; 84443

== ENCOUNTER 2022-10-18 08:51 | Outpatient (REF) | payer OTHER, SELFPAY ==
[2022-10-18 11:46] LABS: Cholesterol 153 mg/dL; HDL Cholesterol 39 mg/dL; LDL Cholesterol Calculated 82 mg/dl; Triglycerides 161 mg/dL
[2022-10-18 12:03] LABS: Vitamin D 25-OH Total 32.7 ng/mL (>30)
[2022-10-18 12:31] LABS: Folate 13.6 ng/mL (> or = 4.0); Vitamin B12 527 pg/mL (200-900)
== END 2022-10-18 08:52 | disposition home or self-care (01) ==
LOC: HO.HMGCLDS 08:51
PROVIDERS: PCP Internal Medicine; Visit Provider Internal Medicine
DX: Z00.01 Encounter for general adult medical examination with abnormal findings (principal); R53.83 Other fatigue
CPT/HCPCS: 36415; 80061; 82306; 82607; 82746

== ENCOUNTER 2022-10-19 13:47 | Outpatient (REF) | payer OTHER, SELFPAY | END 2022-10-19 13:48 | disposition home or self-care (01) | LOC: HO.MDS 13:47 | PROVIDERS: Visit Provider Internal Medicine Medical Oncology | DX: D50.9 Iron deficiency anemia, unspecified (principal) | CPT/HCPCS: 96365 ==

== ENCOUNTER 2022-10-23 07:27 | Outpatient (REF) | payer OTHER, SELFPAY ==
[2022-10-24 15:18] LABS: Adrenocorticotropic Hormone 24 pg/mL (6-50)
[2022-10-31 18:03] LABS: Cortisol 30 Minute 21.6 mcg/dL; Cortisol 30 Minute Time NG; Cortisol Baseline 11.2 mcg/dL; Cortisol Baseline Time 1 NG
[2022-11-05 08:32] LABS: Cortisol 60 Minute NG; Cortisol 60 Minute Time 3 NG; Med (ACTH) Time NG
== END 2022-10-23 07:28 | disposition home or self-care (01) ==
LOC: HO.MDS 07:27
PROVIDERS: Visit Provider Internal Medicine Endocrinology, Diabetes & Metabolism
DX: E27.40 Unspecified adrenocortical insufficiency (principal)
CPT/HCPCS: 36415; 82024; 82533; 96374; J0834

== ENCOUNTER 2022-10-26 13:23 | Outpatient (REF) | payer OTHER, SELFPAY | END 2022-10-26 13:24 | disposition home or self-care (01) | LOC: HO.MDS 13:23 | PROVIDERS: PCP Internal Medicine; Visit Provider Internal Medicine Medical Oncology | DX: D50.9 Iron deficiency anemia, unspecified (principal) | CPT/HCPCS: 96365; J1756 ==

== ENCOUNTER 2022-11-02 13:52 | Outpatient (REF) | payer OTHER, SELFPAY | END 2022-11-02 13:53 | disposition home or self-care (01) | LOC: HO.MDS 13:52 | PROVIDERS: Visit Provider Internal Medicine Medical Oncology | DX: D50.9 Iron deficiency anemia, unspecified (principal) | CPT/HCPCS: 96365; J1756 ==

== ENCOUNTER 2022-11-08 13:06 | Outpatient (REF) | payer OTHER, SELFPAY ==
[2022-11-08 14:06] LABS: Baso%MD 0.8 %; Eos%MD 2.8 %; Hematocrit 38.9 % (37.0-47.0); Hemoglobin 12.8 g/dl (12.0-16.0); IG%MD 0.2 %; Lymph%MD 30.8 %; Mean Corpuscular HGB Conc 32.9 g/dl (31.0-35.0); Mean Corpuscular Hemoglobin 27.5 pg (27.0-33.0); Mean Corpuscular Volume 83.7 fL (80.0-98.0); Mono%MD 11.1 %; Neut%MD 54.3 %; Platelet Count 306 X10*3/uL (160-400); Red Blood Count 4.65 X10*6/uL (4.20-5.50)
[2022-11-08 14:42] LABS: Band Neutrophils Percent 0 % (3-5); Eosinophils Absolute Manual 0.1 X10*3/uL (0.0-0.4); Eosinophils Percent Manual 1 % (0-4); Lymphocytes Absolute Manual 1.8 X10*3/uL (1.2-4.9); Lymphocytes Percent Manual 36 % (20-40); Monocytes Absolute Manual 0.7 X10*3/uL (0.1-1.2); Monocytes Percent Manual 13 % (2-11); Neutrophils Absolute Manual 2.5 X10*3/uL (2.0-8.3); Neutrophils Percent Manual 50 % (45-73); Platelet Estimate NORMAL (NORMAL); Platelet Morphology Comment NORMAL; RBC Morphology NORMAL
== END 2022-11-08 13:07 | disposition home or self-care (01) ==
LOC: HO.MDS 13:06
PROVIDERS: PCP Internal Medicine; Visit Provider Internal Medicine Medical Oncology
DX: D50.9 Iron deficiency anemia, unspecified (principal)
CPT/HCPCS: 36415; 85007; 85027; 96365; J1756

== ENCOUNTER 2022-11-15 08:50 | Outpatient (REF) | payer OTHER, SELFPAY ==
--- NOTE | ~2022-11-15 | MM_ITS ---
EXAMINATION: MM SCREENING DIGITAL BREAST TOMOSYNTHESIS, BILATERAL CLINICAL INFORMATION: Screening. Asymptomatic. The lifetime risk of breast cancer based on the Tyrer-Cuzick Model is 5%. COMPARISON: Mammography: 07/23/2020, 03/28/2019 TECHNIQUE: Digital breast tomosynthesis is performed in both the craniocaudal and mediolateral oblique views along with computer-aided detection (CAD). Synthesized 2D images are generated from the tomosynthesis. FINDINGS: There are scattered areas of fibroglandular density (ACR BI-RADS breast composition Category b). There are no significant masses, abnormal calcifications, or other abnormalities. Parenchymal pattern is similar to prior studies. There is no developing density or architectural abnormality. The axilla and skin contours are unremarkable. No significant changes. MM/MM tomosynthesis screening BI IMPRESSION: No mammographic evidence of malignancy. ASSESSMENT: BI-RADS 1: Negative RECOMMENDATION: Routine annual mammography screening. This patient's information was entered into a reminder system with a target due date for their next mammogram.
== END 2022-11-15 08:51 | disposition home or self-care (01) ==
LOC: HO.MAMMO 08:50
PROVIDERS: PCP Internal Medicine; Visit Provider Obstetrics & Gynecology
DX: Z12.31 Encounter for screening mammogram for malignant neoplasm of breast (principal)
CPT/HCPCS: 77063; 77067

== ENCOUNTER 2022-11-16 13:46 | Outpatient (REF) | payer OTHER, SELFPAY | END 2022-11-16 13:47 | disposition home or self-care (01) | LOC: HO.MDS 13:46 | PROVIDERS: Visit Provider Internal Medicine Medical Oncology | DX: D50.9 Iron deficiency anemia, unspecified (principal) | CPT/HCPCS: 96365; J1756 ==

== ENCOUNTER 2022-11-30 14:10 | Outpatient (REF) | payer OTHER, SELFPAY | END 2022-11-30 14:11 | disposition home or self-care (01) | LOC: HO.MDS 14:10 | PROVIDERS: Visit Provider Internal Medicine Medical Oncology | DX: D50.9 Iron deficiency anemia, unspecified (principal) | CPT/HCPCS: 96365; J1756 ==

== ENCOUNTER 2022-12-13 15:56 | Outpatient (REF) | payer OTHER, SELFPAY ==
[2022-12-13 16:27] LABS: Hematocrit 39.2 % (37.0-47.0); Hemoglobin 13.5 g/dl (12.0-16.0); Mean Corpuscular HGB Conc 34.4 g/dl (31.0-35.0); Mean Corpuscular Hemoglobin 29.5 pg (27.0-33.0); Mean Corpuscular Volume 85.8 fL (80.0-98.0); Mean Platelet Volume 9.4 fL (9.4-12.3); Platelet Count 212 X10*3/uL (160-400); Red Blood Count 4.57 X10*6/uL (4.20-5.50); Red Cell Distribution Width 14.2 % (11.0-16.0); White Blood Count 5.8 X10*3/uL (4.8-10.8)
[2022-12-13 16:33] LABS: Calcium 8.8 mg/dL (8.4-10.2)
[2022-12-13 16:59] LABS: Ferritin 194 ng/mL (10-250)
== END 2022-12-13 15:57 | disposition home or self-care (01) ==
LOC: HO.LAB 15:56
PROVIDERS: Internal Medicine; PCP Internal Medicine; Visit Provider Surgery
DX: E04.2 Nontoxic multinodular goiter (principal); D64.9 Anemia, unspecified
CPT/HCPCS: 36415; 82040; 82310; 82728; 85027

== ENCOUNTER 2023-01-02 11:26 | Outpatient (REF) | payer OTHER, SELFPAY ==
[2023-01-02 15:11] LABS: Calcium 8.6 mg/dL (8.4-10.2)
[2023-01-02 15:33] LABS: Free T4 (Free Thyroxine) 1.37 ng/dL (0.71-1.85); Thyroid Stimulating Hormone 0.12 uIU/mL (0.32-4.0)
== END 2023-01-02 11:27 | disposition home or self-care (01) ==
LOC: HO.HMGCLDS 11:26
PROVIDERS: PCP Internal Medicine; Visit Provider Internal Medicine Endocrinology, Diabetes & Metabolism
DX: E04.1 Nontoxic single thyroid nodule (principal)
CPT/HCPCS: 36415; 82310; 84439; 84443

== ENCOUNTER → 2023-01-04 14:38 | Outpatient (BNVA) | payer OTHER, SELFPAY | PROVIDERS: PCP Internal Medicine; Visit Provider Internal Medicine Endocrinology, Diabetes & Metabolism | DX: Z13.89 Encounter for screening for other disorder (principal) ==

== ENCOUNTER 2023-02-22 09:30 | Outpatient (REF) | payer OTHER, SELFPAY ==
[2023-02-22 11:57] LABS: Free T4 (Free Thyroxine) 1.23 ng/dL (0.71-1.85); Thyroid Stimulating Hormone 0.31 uIU/mL (0.32-4.0)
== END 2023-02-22 09:31 | disposition home or self-care (01) ==
LOC: HO.LAB 09:30
PROVIDERS: PCP Internal Medicine; Visit Provider Internal Medicine Endocrinology, Diabetes & Metabolism
DX: E03.9 Hypothyroidism, unspecified (principal)
CPT/HCPCS: 36415; 84439; 84443

== ENCOUNTER 2023-03-05 10:50 | Outpatient (REF) | payer OTHER, SELFPAY ==
[2023-03-05 13:56] LABS: MANUAL DIFF FLAG NO
[2023-03-05 14:08] LABS: Basophils Percent Auto 0.9 % (0-2); Eosinophils Absolute Auto 0.2 X10*3/uL (0.0-0.4); Eosinophils Percent Auto 3.4 % (0-4); Hematocrit 36.4 % (37.0-47.0); Hemoglobin 12.4 g/dl (12.0-16.0); Imm Gran Abs Auto 0.01 X10*3/uL (0.00-0.03); Imm Gran Pct Auto 0.2 % (0.0-0.4); Lymphocytes Absolute Auto 1.4 X10*3/uL (1.2-4.9); Lymphocytes Percent Auto 29.7 % (20-40); Mean Corpuscular HGB Conc 34.1 g/dl (31.0-35.0); Mean Corpuscular Hemoglobin 29.7 pg (27.0-33.0); Mean Corpuscular Volume 87.3 fL (80.0-98.0); Mean Platelet Volume 9.3 fL (9.4-12.3); Monocytes Absolute Auto 0.4 X10*3/uL (0.1-1.2); Monocytes Percent Auto 7.7 % (2-11); Neutrophils Absolute Auto 2.7 x10*3/uL (2.0-8.3); Neutrophils Percent Auto 58.1 % (45-73); Platelet Count 284 X10*3/uL (160-400); Red Blood Count 4.17 X10*6/uL (4.20-5.50); Red Cell Distribution Width 12.6 % (11.0-16.0); White Blood Count 4.7 X10*3/uL (4.8-10.8)
[2023-03-05 14:37] LABS: Alanine Aminotransferase 23 U/L (0-31); Albumin Level 3.9 g/dL (3.5-5.0); Alkaline Phosphatase 133 U/L (39-117); Anion Gap 12 (12-20); Aspartate Amino Transferase 24 U/L (5-31); Bilirubin Total 0.3 mg/dL (0.0-1.0); Blood Urea Nitrogen 13 mg/dL (9-16); Calcium 8.9 mg/dL (8.4-10.2); Carbon Dioxide 25 mmol/L (22-29); Chloride 107 mmol/L (96-108); Estimated Glomerular Filt Rate > 60; Glucose Random 90 mg/dL (60-115); Iron 56 mcg/dL (30-160); Percent Iron Saturation 19 % (15-50); Potassium 3.4 mmol/L (3.3-5.1); Sodium 141 mmol/L (135-145); Total Iron Binding Capacity 289 mcg/dL (228-428); Total Protein 6.5 g/dL (6.5-8.0); Unsaturated Iron Binding 233 ug/dL
[2023-03-05 14:53] LABS: Ferritin 35 ng/mL (10-250); HCG Quantitative < 2 mIU/mL
== END 2023-03-05 10:51 | disposition home or self-care (01) ==
LOC: HO.HMGCLDS 10:50
PROVIDERS: Visit Provider Internal Medicine Hematology & Oncology
DX: I78.0 Hereditary hemorrhagic telangiectasia (principal)
CPT/HCPCS: 36415; 80053; 82728; 83540; 84702; 85025

== ENCOUNTER 2023-03-22 | Outpatient (REF) | payer OTHER, SELFPAY | END 2023-03-22 00:01 | disposition home or self-care (01) | LOC: HO.MDS | PROVIDERS: Visit Provider Internal Medicine | DX: D50.9 Iron deficiency anemia, unspecified (principal); I78.0 Hereditary hemorrhagic telangiectasia | CPT/HCPCS: 96365; J1756 ==

== ENCOUNTER 2023-03-28 09:02 | Outpatient (REF) | payer OTHER, SELFPAY | END 2023-03-28 09:03 | disposition home or self-care (01) | LOC: HO.MDS 09:02 | PROVIDERS: Visit Provider Internal Medicine | DX: D50.9 Iron deficiency anemia, unspecified (principal) | CPT/HCPCS: 96365; J1756 ==

== ENCOUNTER 2023-04-18 14:23 | Outpatient (REF) | payer OTHER, SELFPAY ==
[2023-04-18 14:54] LABS: Hematocrit 41.6 % (37.0-47.0); Mean Corpuscular HGB Conc 33.7 g/dl (31.0-35.0); Mean Corpuscular Volume 86.3 fL (80.0-98.0); Mean Platelet Volume 8.8 fL (9.4-12.3); Platelet Count 315 X10*3/uL (160-400); Red Blood Count 4.82 X10*6/uL (4.20-5.50); Red Cell Distribution Width 12.6 % (11.0-16.0); White Blood Count 6.8 X10*3/uL (4.8-10.8)
[2023-04-18 15:12] LABS: Alanine Aminotransferase 40 U/L (0-31); Albumin Level 3.9 g/dL (3.5-5.0); Alkaline Phosphatase 156 U/L (39-117); Anion Gap 12 (12-20); Aspartate Amino Transferase 36 U/L (5-31); Bilirubin Total 0.3 mg/dL (0.0-1.0); Blood Urea Nitrogen 12 mg/dL (9-16); Calcium 9.7 mg/dL (8.4-10.2); Carbon Dioxide 26 mmol/L (22-29); Chloride 106 mmol/L (96-108); Estimated Glomerular Filt Rate > 60; Glucose Random 89 mg/dL (60-115); Potassium 3.7 mmol/L (3.3-5.1); Sodium 140 mmol/L (135-145)
== END 2023-04-18 14:24 | disposition home or self-care (01) ==
LOC: HO.MDS 14:23
PROVIDERS: Visit Provider Internal Medicine
DX: D50.9 Iron deficiency anemia, unspecified (principal); I78.0 Hereditary hemorrhagic telangiectasia
CPT/HCPCS: 36415; 80053; 85027; 96365; J1756

== ENCOUNTER 2023-05-08 14:09 | Outpatient (REF) | payer OTHER, SELFPAY ==
[2023-05-08 16:04] LABS: MANUAL DIFF FLAG NO
[2023-05-08 16:10] LABS: Basophils Absolute Auto 0.1 X10*3/uL (0.0-0.2); Eosinophils Absolute Auto 0.2 X10*3/uL (0.0-0.4); Hematocrit 39.9 % (37.0-47.0); Hemoglobin 13.8 g/dl (12.0-16.0); Imm Gran Abs Auto 0.01 X10*3/uL (0.00-0.03); Imm Gran Pct Auto 0.2 % (0.0-0.4); Lymphocytes Absolute Auto 1.7 X10*3/uL (1.2-4.9); Lymphocytes Percent Auto 28.1 % (20-40); Mean Corpuscular HGB Conc 34.6 g/dl (31.0-35.0); Mean Corpuscular Hemoglobin 30.3 pg (27.0-33.0); Mean Corpuscular Volume 87.7 fL (80.0-98.0); Mean Platelet Volume 8.9 fL (9.4-12.3); Monocytes Absolute Auto 0.5 X10*3/uL (0.1-1.2); Monocytes Percent Auto 7.6 % (2-11); Neutrophils Absolute Auto 3.6 x10*3/uL (2.0-8.3); Neutrophils Percent Auto 59.1 % (45-73); Platelet Count 289 X10*3/uL (160-400); Red Blood Count 4.55 X10*6/uL (4.20-5.50); Red Cell Distribution Width 12.4 % (11.0-16.0); White Blood Count 6.1 X10*3/uL (4.8-10.8)
[2023-05-08 17:10] LABS: Alanine Aminotransferase 25 U/L (0-31); Albumin Level 3.8 g/dL (3.5-5.0); Alkaline Phosphatase 130 U/L (39-117); Anion Gap 10 (12-20); Aspartate Amino Transferase 24 U/L (5-31); Bilirubin Total 0.2 mg/dL (0.0-1.0); Blood Urea Nitrogen 10 mg/dL (9-16); Calcium 9.2 mg/dL (8.4-10.2); Carbon Dioxide 24 mmol/L (22-29); Chloride 105 mmol/L (96-108); Estimated Glomerular Filt Rate > 60; Glucose Random 122 mg/dL (60-115); Potassium 3.5 mmol/L (3.3-5.1); Sodium 135 mmol/L (135-145)
[2023-05-08 17:25] LABS: Thyroid Stimulating Hormone 0.37 uIU/mL (0.32-4.0)
== END 2023-05-08 14:10 | disposition home or self-care (01) ==
LOC: CF 14:09
PROVIDERS: Internal Medicine; PCP Internal Medicine; Visit Provider Internal Medicine Endocrinology, Diabetes & Metabolism
DX: E89.0 Postprocedural hypothyroidism (principal); D64.9 Anemia, unspecified; Z79.899 Other long term (current) drug therapy
CPT/HCPCS: 36415; 80053; 84439; 84443; 85025

== ENCOUNTER 2023-05-10 13:00 | Outpatient (REF) | payer OTHER, SELFPAY ==
[2023-05-10 14:46] LABS: Vitamin D 25-OH Total 31.8 ng/mL (>30)
[2023-05-10 14:59] LABS: Folate 11.5 ng/mL (> or = 4.0); Vitamin B12 468 pg/mL (200-900)
== END 2023-05-10 13:01 | disposition home or self-care (01) ==
LOC: HO.HMGCLDS 13:00
PROVIDERS: PCP Internal Medicine; Visit Provider Internal Medicine
DX: R53.83 Other fatigue (principal); G47.19 Other hypersomnia; G47.9 Sleep disorder, unspecified; R06.83 Snoring
CPT/HCPCS: 36415; 82306; 82607; 82746

== ENCOUNTER 2023-05-30 14:18 | Outpatient (REF) | payer OTHER, SELFPAY ==
--- NOTE | ~2023-05-30 | MM_ITS ---
EXAMINATION: BONE DENSITOMETRY CLINICAL INDICATION: Asymptomatic menopausal state. COMPARISON: This is the patient's baseline examination. TECHNIQUE: Using a [employer] DXA System (software version: 13.1) manufactured by [employer], dual-energy x-ray absorptiometry was performed of the lumbar spine and left hip. The images are of good technical quality. Summary results are attached. FINDINGS: LEFT FEMUR, NECK: BMD 0.769 g/cm2, Z-score -1.0, T-score -1.9, osteopenia. LEFT FEMUR, TOTAL: BMD 0.789 g/cm2, Z-score -1.1, T-score -1.7, osteopenia. AP SPINE L1-L4: BMD 0.990 g/cm2, Z-score -0.9, T-score -1.6, osteopenia. IDENTIFIED RISK FACTORS: Early menopause, secondary osteoporosis, glucocorticoids (chronic), thiazide. HISTORY OF FRACTURE: None listed. MEDICATIONS: Vitamin D. MM/XR DEXA axial skeleton IMPRESSION: 1. DIAGNOSIS: Osteopenia based on the lowest T-score value of -1.9 in the femoral neck applying World Health Organization criteria. 2. 10-YEAR FRACTURE RISK PREDICTION, FRAX: Major osteoporotic fracture (clinical spine, forearm, hip or shoulder) 11.3%. Hip fracture 1.5%. 3. Treatment Recommendations: NOF guidelines recommend consideration for treatment in postmenopausal women and men age 50 and older presenting with the following: -A hip or vertebral (clinical or morphometric) fracture. -T-score less than or equal to -2.5 at the femoral neck or spine after appropriate evaluation to exclude secondary causes. -Low bone mass at the hip or spine and a 10-year fracture probability by FRAX of greater than or equal to 3% for hip fracture or greater than or equal to 20% for major osteoporotic fracture based on the [place] adapted WHO algorithm. 4. Other Recommendations: All treatment decisions require clinical judgment and consideration of individual patient factors, including patient preferences, comorbidities, previous drug use, risk factors not captured in the FRAX model (e.g. frailty, falls, vitamin D deficiency, increased bone turnover, interval significant decline in bone density) and possible under or overestimation of fracture risk by FRAX. Additional medical evaluation for secondary cause of low bone mineral density may be appropriate. FUTURE SCAN RECOMMENDATION: People with diagnosed cases of osteoporosis or at high risk for fracture should have regular bone mineral density tests. For patients eligible for Medicare, routine testing is allowed once every 2 years. The testing frequency can be increased to one year for patients who have rapidly progressing disease, those who are receiving or discontinuing medical therapy to restore bone mass, or have additional risk factors.
== END 2023-05-30 14:19 | disposition home or self-care (01) ==
LOC: HO.MAMMO 14:18
PROVIDERS: PCP Internal Medicine; Visit Provider Internal Medicine
DX: Z13.820 Encounter for screening for osteoporosis (principal); Z78.0 Asymptomatic menopausal state; Z82.62 Family history of osteoporosis
CPT/HCPCS: 77080

== ENCOUNTER 2023-06-20 14:42 | Outpatient (AMB) | payer OTHER, SELFPAY ==
--- NOTE | 2023-06-20 15:11 | A.OFFPC_ITS ---
Vital Signs 06/20/23 15:15 Height 5 ft 2 in Weight 140 lb BMI 25.6 BP 100/80 Blood Pressure Location Lt brachial Position Sitting Pulse 80 Pulse Source Pulse Oximeter Pulse Oximetry (%) 99 Oxygen Delivery Method Room Air Intake Visit Reasons: 2 month Follow up Asthma Intake Note: Pt is here today for her 2 months f/u asthma Allergies iodine [IODINE] Allergy (Severe, Verified 06/20/23 15:24) ANAPHYLAXIS shellfish derived [SHELLFISH DERIVED] Allergy (Severe, Verified 06/20/23 15:24) ANAPHYLAXIS coconut Adverse Reaction (Unknown, Uncoded 06/20/23 15:24) sensativity Medication List - Last Reconciled 06/20/23 by Yasmin Castillo MD albuterol sulfate 90 mcg/actuation 2 inhalations inhalation Q6H PRN albuterol sulfate 2.5 mg (3 mL) inhalation Q6H PRN [id number] 50-300-40 mg (Fioricet) 1 cap PO Q8H PRN cholecalciferol (vitamin D3) 50 mcg PO DAILY hydrochlorothiazide 25 mg PO DAILY hyoscyamine sulfate ER 0.375 mg PO DAILY levothyroxine 88 mcg PO DAILY magnesium carb,citrate,oxide (Magnesium Complex) 300 mg PO DAILY montelukast 10 mg PO QAM nebulizers use as directed every 6 hours as needed for bronchospasm Symbicort 160-4.5 mcg/actuation (budesonide-formoterol) 2 puffs inhalation Q12H NS vitamin B complex 1 cap PO DAILY Tobacco use date assessed: 06/20/23 Dental Screening Dental Screen Date: 06/20/23 Did you have a dental visit in the last 12 months?: Yes Did you have a dental problem in the last 6 months where you did not have access to dental care?: Yes Was dental information given to patient?: Patient has dentist HPI 2 month Follow up Asthma HPI Details 52-year-old lady with bronchial asthma, started on Symbicort on last visit, has been feeling well, takes Symbicort only 2 inhalations in the morning as nighttime dosing wires her up . Has rarely been needing to use her rescue inhaler. Still complains of feeling tired all the time, has a sleep study has appo intment already scheduled for next month, has hypothyroidism and hereditary telangiectasia, meds still having frequent nose bleeds PFSH Medical History (Updated 06/20/23 @ 15:44 by Yasmin Castillo MD) Anxiety and depression Arthralgia of both hands Chronic rhinitis Disturbance, sleep Early menopause Environmental and seasonal allergies Essential hypertension Excessive daytime sleepiness Family history of osteoporosis Fatigue Hereditary hemorrhagic telangiectasia Hypothyroidism IBS (irritable bowel syndrome) Intermittent lightheadedness Memory changes Migraine Mild intermittent asthma Muscle contraction headache Pigmented skin lesion of uncertain behavior of upper extremity Recurrent sinusitis Severe anemia Snoring Symptomatic premature menopause Thyroid nodule greater than or equal to 1.5 cm in diameter incidentally noted on imaging study Vitamin D deficiency Surgical History H/O umbilical hernia repair History of biopsy Hx of cholecystectomy Hx of colonoscopy Hx of thyroidectomy S/P correction of deviated nasal septum Family History Father Prostate cancer Diabetes mellitus Hereditary hemorrhagic telangiectasia PTSD (post-traumatic stress disorder) Essential hypertension Substance use disorder Mental health disorder Mother Osteoporosis Brother Hereditary hemorrhagic telangiectasia Essential hypertension IBS (irritable bowel syndrome) Daughter Substance use disorder Mental health disorder Social History Household Members: Spouse Housing: House Alcohol intake: current Alcohol intake frequency: holidays/special occasions only Patient Tobacco Use Status: Never used Tobacco e-Cigarette/Vaping Use: Never Used service: No Current occupational status: employed 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 Magan Sullivan, Evita Otoole, Holger Cabrera and colleagues, with an educational matt from [employer]. ACT Questionnaire In the past 4 weeks, how much of the time did your asthma keep you from getting as much done at work, school or at home?: None of the time During the past 4 weeks, how often have you had shortness of breath?: 1-2 times a week During the past 4 weeks, how often did your asthma symptoms wake you up at night or earlier than usual in the morning?: Once or twice per week During the past 4 weeks, how often have you had to use your rescue inhaler or nebulizer medication?: Once a week or less How would you rate your asthma control during the past 4 weeks?: Well controlled Score: 21 Review of Systems Const Denies body aches, Denies fever(s), Denies headache(s) and Denies weakness Eyes Denies change in vision ENT Denies dizziness, Denies headache(s), Denies hoarseness, Denies nasal con gestion, Denies nasal discharge and Denies sore throat Card Denies chest pain, Denies lightheadedness and Denies dyspnea Resp Denies chest congestion, Denies cough, Denies dyspnea and Denies wheezing GI Denies change in bowel habits and Denies heartburn Reports vaginal dryness Musc Reports arthralgias, Denies joint swelling and Reports stiffness Neuro Denies dizziness, Denies headache(s), Denies Sensory deficit (Neuro) and Denies weakness Ankit/Lymph Reports easy bleeding Aller/Immun Denies seasonal rhinorrhea and Denies wheezing Physical exam (Primary Care) Vital Signs: Last Vital Signs Pulse 80 06/20/23 15:15 BP 100/80 06/20/23 15:15 Pulse Ox 99 06/20/23 15:15 Oxygen Delivery Method Room Air 06/20/23 15:15 BMI result Body Mass Index 25.6 Tobacco/Smoking Status: Tobacco use Status Tobacco use date assessed 06/20/23 06/20/23 15:12 Patient Tobacco Use Status Never used Tobacco 06/20/23 15:12 e-Cigarette/Vaping Use Never Used 06/20/23 15:12 Thrive Assessment: Date of Thrive Assessment Date Thrive assessed 04/15/23 06/20/23 15:12 Const General: cooperative, healthy appearing, no acute distress and alert [facility] General nose exam: Normal external nose present and No nasal discharge present Face and sinus: Yes face symmetric Mouth: oropharynx normal and moist mucous membranes Neck Neck: Yes full ROM and Yes no lymphadenopathy Lymphatic: no lymphadenopathy noted Resp Effort & Inspection: normal respiratory effort and able to speak in complete sentences Auscultation: clear to auscultation bilaterally Cardio Rate: regular rate Rhythm: regular rhythm Heart sounds: S1 normal heart sound present and S2 normal heart sound present Neuro Sensory Exam: No Sensory deficit (Neuro) Assessment and Plan Assessment & Plan (1) Mild intermittent asthma: Code(s): J45.20 - Mild intermittent asthma, uncomplicated Plan: Doing better on Symbicort, takes 2 inhalations in a.m., rarely needing to use her rescue inhaler (2) Hypothyroidism: Code(s): E03.9 - Hypothyroidism, unspecified Plan: Currently on levothyroxine 88 mcg daily, check TSH and free T4 (3) Vitamin D deficiency: Code(s): E55.9 - Vitamin D deficiency, unspecified Plan: Will check vitamin-D level (4) Early menopause: Code(s): E28.319 - Asymptomatic premature menopause Plan: Check vitamin-D left (5) Hereditary hemorrhagic telangiectasia: Code(s): I78.0 - Hereditary hemorrhagic telangiectasia Plan: Repeat CBC Orders: Orders 2 Vitamin D 25-OH Total Today E03.9 - Hypothyroidism, unspecified, E28.319 - Asymptomatic premature menopause, E55.9 - Vitamin D deficiency, unspecified, I78.0 - Hereditary hemorrhagic telangiectasia Hemoglobin and Hematocrit Today E03.9 - Hypothyroidism, unspecified, E28.319 - Asymptomatic premature menopause, E55.9 - Vitamin D deficiency, unspecified, I78.0 - Hereditary hemorrhagic telangiectasia Free T4 (Free Thyroxine) Today E03.9 - Hypothyroidism, unspecified, E28.319 - Asymptomatic premature menopause, E55.9 - Vitamin D deficiency, unspecified, I78.0 - Hereditary hemorrhagic telangiectasia Thyroid Stimulating Hormone Today E03.9 - Hypothyroidism, unspecified, E28.319 - Asymptomatic premature menopause, E55.9 - Vitamin D deficiency, unspecified, I78.0 - Hereditary hemorrhagic telangiectasia Coding Level of Care Code Est Pt Level 4 (82322) Diagnoses Mild intermittent asthma J45.20 Hypothyroidism E03.9 Vitamin D deficiency E55.9 Early menopause E28.319 Hereditary hemorrhagic telangiectasia I78.0
[2023-06-20 15:15] VITALS: BP 100/80; PULSE 80; O2SAT 99; BMI 25.6
== END 2023-06-20 16:30 | disposition home or self-care (01) ==
PROVIDERS: PCP Internal Medicine; Visit Provider Internal Medicine
DX: J45.20 Mild intermittent asthma, uncomplicated (principal); E03.9 Hypothyroidism, unspecified; E55.9 Vitamin D deficiency, unspecified; E28.319 Asymptomatic premature menopause; I78.0 Hereditary hemorrhagic telangiectasia
CPT/HCPCS: 99214

== ENCOUNTER 2023-07-30 12:52 | Outpatient (AMB) | payer OTHER, SELFPAY ==
--- NOTE | 2023-07-30 13:01 | A.OFFVIS_ITS ---
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 Patient states Im not sleeping at night no REM, my primary thinks it's sleep apnea, there are times where I feel extremely through out the day . Allergies iodine [IODINE] Allergy (Severe, Verified 07/30/23 13:05) ANAPHYLAXIS shellfish derived [SHELLFISH DERIVED] Allergy (Severe, Verified 07/30/23 13:05) ANAPHYLAXIS coconut Adverse Reaction (Unknown, Uncoded 07/30/23 13:05) sensativity HPI HPI Comments History of Present Illness Details 52 y/o female patient with HHT (Heredita ry Hemorrhagic Telangiectasia) presents for new in-person visit for sleep consultation. Pt reports non refreshing sleep, frequent arousals and daytime sleepiness. Pt reports having difficulty falling asleep and staying sleep, takes a while to fall asleep. She uses eye mask and melatonin 3 mg occasionally. Pt reports HHT and anemia due to frequent nose bleeding (several times during day and night) and she is on iron infusion. She wakes up several times at night. leep questionnaire: Have you ever been diagnosed with a sleep disorder? No. Have you ever had a sleep study in the past? No. Have you ever been treated for a sleep disorder? No. Do you take medications for a sleep disorder? Melatonin 3 mg sometimes. Do you snore? Yes. Do you wake up gasping at night? No. Do you have episodes of apneas? No. If yes, are they witnessed? No. Do you have episodes of nocturnal chest pain or dyspnea? No. Do you have difficulty initiating sleep? Yes. Do you have difficulty maintaining sleep? Yes. Do you wake up tired? Yes. Do you have headaches upon awakening? Yes, sometimes. Do you wake up with dry mouth or throat? Yes, but bad. Do you have GERD? Yes. Do you have nocturia? No. Do you have nocturnal leg cramps? No. Do you have symptoms of restless legs? No. Do you act out your dreams? No. Sleep hygiene questionnaire: What is your usual sleep routine? Usual bedtime is at 11 pm; Usual wake up time is at 3-4 am. Do you take naps? Yes, sometimes. Is your sleep environment cool, dark, and quiet? Yes. Do you exercise? No. Do you take caffeine or other stimulants? Tea during early day. Do you use electronics in bed? Yes, watch TV and playing with phone. What is your work schedule? 8-10 am to 8-9 pm. Hypersomnolence questionnaire: Do you have daytime tiredness or fatigue? Yes. Do you easily fall asleep when inactive? Yes. Have you ever had episodes of sudden weakness? No. Have you ever had episodes of sudden weakness associated with strong emotions? No. PFSH Medical History Pigmented skin lesion of uncertain behavior of upper extremity Family history of osteoporosis Memory changes Disturbance, sleep Snoring Excessive daytime sleepiness Fatigue Hypothyroidism Symptomatic premature menopause Thyroid nodule greater than or equal to 1.5 cm in diameter incidentally noted on imaging study Intermittent lightheadedness Severe anemia Anxiety and depression Arthralgia of both hands Migraine Chronic rhinitis Vitamin D deficiency Recurrent sinusitis Environmental and seasonal allergies IBS (irritable bowel syndrome) Muscle contraction headache Mild intermittent asthma Early menopause Essential hypertension Hereditary hemorrhagic telangiectasia Surgical History Hx of thyroidectomy History of biopsy Hx of colonoscopy S/P correction of deviated nasal septum H/O umbilical hernia repair Hx of cholecystectomy Family History Father Prostate cancer Diabetes mellitus Hereditary hemorrhagic telangiectasia PTSD (post-traumatic stress disorder) Essential hypertension Substance use disorder Mental health disorder Mother Osteoporosis Brother Hereditary hemorrhagic telangiectasia Essential hypertension IBS (irritable bowel syndrome) Daughter Substance use disorder Mental health disorder Social History Household Members: Spouse Housing: House Alcohol intake: current Alcohol intake frequency: holidays/special occasions only Patient Tobacco Use Status: Never used Tobacco e-Cigarette/Vaping Use: Never Used service: No Current occupational status: employed 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 Gender identity: Female Cognitive needs: No Hearing needs: No Vision needs: Yes Female Reproductive History Menstrual Age of Menarche: 11 Review of Systems Const All systems reviewed & are unremarkable except as noted in HPI and below ENT Reports Normal hearing present Neuro Reports Normal hearing present Physical Exam Vital Signs: Last Vital Signs Pulse 91 07/30/23 13:02 BP 118/80 07/30/23 13:02 Pulse Ox 97 07/30/23 13:02 BMI result Body Mass Index 26.2 Const General: cooperative Nutritional Appearance: overweight Orientation/consciousness: patient oriented x3 Neck Neck: Yes full ROM and Yes supple Resp Effort & Inspection: normal respiratory effort and able to speak in complete sentences Neuro General: patient oriented x3 and gait normal Cranial nerves: Yes Bilaterally intact EOM present, Yes Normal facial strength present, Yes Midline tongue present, Yes Symmetric palate elevation present, Yes Normal hearing present, Yes Ability to bilaterally rotate head present and Yes Ability to bilaterally elevate shoulders present Cognition (Neuro): normal cognition Gait exam (Neuro): Normal gait present Motor exam (neuro): 5/5 motor strength present throughout, Pronator motor function not present and no tremor noted Psych Appearance: grossly normal Mental Status: mental status grossly normal Speech and movement: Normal speech and movement present Affect: normal affect Attitude: cooperative Assessment & Plan Assessment & Plan (1) Disturbance, sleep: Code(s): G47.9 - Sleep disorder, unspecified (2) Excessive daytime sleepiness: Code(s): G47.19 - Other hypersomnia (3) Snoring: Code(s): R06.83 - Snoring Plan Pt is advised to undergo home sleep study to assess for sleep apnea. Will f/u with pt after study to discuss results and appropriate treatment options. Sleep hygiene education provided. Advised patient to limit electronic use before bedtime. Pt to call with any worsening concerns or questions. Orders: Orders RT home sleep study 07/30/23 G47.19 - Other hypersomnia, R06.83 - Snoring, R53.83 - Other fatigue Coding Level of Care Code New Pt Level 4 (69577) Diagnoses Disturbance, sleep G47.9 Excessive daytime sleepiness G47.19 Snoring R06.83
[2023-07-30 13:02] VITALS: BP 118/80; PULSE 91; O2SAT 97; BMI 26.2
== END 2023-07-30 13:59 | disposition home or self-care (01) ==
PROVIDERS: PCP Internal Medicine; Visit Provider Nurse Practitioner Family
DX: G47.9 Sleep disorder, unspecified (principal); G47.19 Other hypersomnia; R06.83 Snoring
CPT/HCPCS: 99204

== ENCOUNTER → 2023-07-30 12:52 | Outpatient (BNVA) | payer OTHER, SELFPAY | PROVIDERS: PCP Internal Medicine; Visit Provider Nurse Practitioner Family ==

== ENCOUNTER 2023-07-30 14:32 | Outpatient (REF) | payer OTHER, SELFPAY ==
[2023-07-30 16:22] LABS: Hematocrit 38.4 % (37.0-47.0); Hemoglobin 12.6 g/dl (12.0-16.0); Mean Corpuscular HGB Conc 32.8 g/dl (31.0-35.0); Mean Corpuscular Hemoglobin 28.9 pg (27.0-33.0); Mean Corpuscular Volume 88.1 fL (80.0-98.0); Mean Platelet Volume 9.1 fL (9.4-12.3); Platelet Count 320 X10*3/uL (160-400); Red Blood Count 4.36 X10*6/uL (4.20-5.50); Red Cell Distribution Width 12.8 % (11.0-16.0); White Blood Count 5.2 X10*3/uL (4.8-10.8)
[2023-07-30 17:06] LABS: Free T4 (Free Thyroxine) 1.04 ng/dL (0.71-1.85)
[2023-07-30 17:11] LABS: Ferritin 16 ng/mL (10-250); Thyroid Stimulating Hormone 4.13 uIU/mL (0.32-4.0)
== END 2023-07-30 14:33 | disposition home or self-care (01) ==
LOC: HO.HMGCLDS 14:32
PROVIDERS: Absent Provider Internal Medicine; PCP Internal Medicine; Visit Provider Nurse Practitioner Family
DX: E03.9 Hypothyroidism, unspecified (principal); E55.9 Vitamin D deficiency, unspecified; E28.319 Asymptomatic premature menopause; I78.0 Hereditary hemorrhagic telangiectasia
CPT/HCPCS: 36415; 82306; 82728; 84439; 84443; 85014; 85018; 85027

== ENCOUNTER 2023-08-06 13:47 | Outpatient (AMB) | payer OTHER, SELFPAY ==
[2023-08-06 13:49] VITALS: BP 120/78; PULSE 78; BMI 26.0
--- NOTE | 2023-08-06 13:49 | A.OFFVIS_ITS ---
Intake Vital Signs 08/06/23 13:49 Height 5 ft 2 in Weight 141 lb 15.643 oz BMI 26.0 BP 120/78 Blood Pressure Location Lt brachial Position Sitting Pulse 78 Pulse Source Pulse Oximeter Intake Visit Reasons: f/u postsurgicAL HYPOTHYROIDISM/Confirmed Intake Note: Patient present today for post surgical Hypothyroidism follow up visit. 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 She is currently on levothyroxine 88 mcg q.d. There are no symptoms of hypothyroidism hyperthyroidism PFS Medical History (Updated 08/06/23 @ 14:21 by Magan Bowles MD) Post-surgical hypothyroidism Pigmented skin lesion of uncertain behavior of upper extremity Family history of osteoporosis Memory changes Disturbance, sleep Snoring Excessive daytime sleepiness Fatigue Hypothyroidism Symptomatic premature menopause Thyroid nodule greater than or equal to 1.5 cm in diameter incidentally noted on imaging study Intermittent lightheadedness Severe anemia Anxiety and depression Arthralgia of both hands Migraine Chronic rhinitis Vitamin D deficiency Recurrent sinusitis Environmental and seasonal allergies IBS (irritable bowel syndrome) Muscle contraction headache Mild intermittent asthma Early menopause Essential hypertension Hereditary hemorrhagic telangiectasia Surgical History Hx of thyroidectomy History of biopsy Hx of colonoscopy S/P correction of deviated nasal septum H/O umbilical hernia repair Hx of cholecystectomy Family History Father Prostate cancer Diabetes mellitus Hereditary hemorrhagic telangiectasia PTSD (post-traumatic stress disorder) Essential hypertension Substance use disorder Mental health disorder Mother Osteoporosis Brother Hereditary hemorrhagic telangiectasia Essential hypertension IBS (irritable bowel syndrome) Daughter Substance use disorder Mental health disorder Social History Household Members: Spouse Housing: House Alcohol intake: current Alcohol intake frequency: holidays/special occasions only Patient Tobacco Use Status: Never used Tobacco e-Cigarette/Vaping Use: Never Used service: No Current occupational status: employed 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 Reflexes 2+ DTR Assessment & Plan Assessment & Plan (1) Thyroid nodule greater than or equal to 1.5 cm in diameter incidentally noted on imaging study: Code(s): E04.1 - Nontoxic single thyroid nodule (2) Hypothyroidism: Code(s): E03.9 - Hypothyroidism, unspecified (3) Post-surgical hypothyroidism: Code(s): E89.0 - Postprocedural hypothyroidism Plan: This 51-year-old white female with history of multinodular goiter status post total thyroidectomy by and currently replaced on 88 mcg levothyroxine. She appears to be clinically euthyroid but has slightly elevated TSH. Plan is to increase levothyroxine to 100 mcg and change to branded Synthroid. Recheck TSH and free T4 in 6 weeks time Orders: Orders Free T4 (Free Thyroxine) 6 Weeks E89.0 - Postprocedural hypothyroidism Thyroid Stimulating Hormone 6 Weeks E89.0 - Postprocedural hypothyroidism Medications: New Synthroid (levothyroxine) 100 mcg PO DAILY 30 tabs 5RF NS Discontinued levothyroxine Discontinued Reason: Doctor's Order 88 mcg PO DAILY 30 tabs 0RF Coding Level of Care Code Est Pt Level 3 (80447) Diagnoses Thyroid nodule greater than or equal to 1.5 cm in diameter incidentally noted on imaging study E04.1 Hypothyroidism E03.9 Post-surgical hypothyroidism E89.0
--- NOTE | 2023-08-06 14:37 | AM.OFFVISNUR ---
Intake Vital Signs 08/06/23 13:49 Height 5 ft 2 in Weight 141 lb 15.643 oz BMI 26.0 BP 120/78 Blood Pressure Location Lt brachial Position Sitting Pulse 78 Pulse Source Pulse Oximeter Intake Visit Reasons: f/u postsurgicAL HYPOTHYROIDISM/Confirmed Allergies iodine [IODINE] Allergy (Severe, Verified 08/06/23 13:54) ANAPHYLAXIS shellfish derived [SHELLFISH DERIVED] Allergy (Severe, Verified 08/06/23 13:54) ANAPHYLAXIS coconut Adverse Reaction (Unknown, Uncoded 07/30/23 13:05) sensativity Nursing Note Provided patient samples of Synthroid 100mcg at the request of Dr. Bowles. Discussed how to properly take Synthroid (1 hour prior to other medications/food/beverages). Also discussed the Synthroid Delivers option to have a 90 days supply of Synthroid delivered to her door. She would like to try the script through her [facility] pharmacy for now, but will call if she changes her mind. Coding Diagnoses Thyroid nodule greater than or equal to 1.5 cm in diameter incidentally noted on imaging study E04.1 Hypothyroidism E03.9 Post-surgical hypothyroidism E89.0 Assessment & Plan Assessment & Plan (1) Thyroid nodule greater than or equal to 1.5 cm in diameter incidentally noted on imaging study: Code(s): E04.1 - Nontoxic single thyroid nodule (2) Hypothyroidism: Code(s): E03.9 - Hypothyroidism, unspecified (3) Post-surgical hypothyroidism: Code(s): E89.0 - Postprocedural hypothyroidism Orders: Orders Free T4 (Free Thyroxine) 6 Weeks E89.0 - Postprocedural hypothyroidism Thyroid Stimulating Hormone 6 Weeks E89.0 - Postprocedural hypothyroidism Medications: New Synthroid (levothyroxine) 100 mcg PO DAILY 30 tabs 5RF NS Discontinued levothyroxine Discontinued Reason: Doctor's Order 88 mcg PO DAILY 30 tabs 0RF
--- NOTE | 2023-08-07 10:51 | MHC.OFFVIS ---
Intake Vital Signs 08/06/23 13:49 Height 5 ft 2 in Weight 141 lb 15.643 oz BMI 26.0 BP 120/78 Blood Pressure Location Lt brachial Position Sitting Pulse 78 Pulse Source Pulse Oximeter Intake Visit Reasons: f/u postsurgicAL HYPOTHYROIDISM/Confirmed Allergies iodine [IODINE] Allergy (Severe, Verified 08/06/23 13:54) ANAPHYLAXIS shellfish derived [SHELLFISH DERIVED] Allergy (Severe, Verified 08/06/23 13:54) ANAPHYLAXIS coconut Adverse Reaction (Unknown, Uncoded 07/30/23 13:05) sensativity [facility] Medical History (Updated 08/06/23 @ 14:21 by Magan Bowles MD) Post-surgical hypothyroidism Pigmented skin lesion of uncertain behavior of upper extremity Family history of osteoporosis Memory changes Disturbance, sleep Snoring Excessive daytime sleepiness Fatigue Hypothyroidism Symptomatic premature menopause Thyroid nodule greater than or equal to 1.5 cm in diameter incidentally noted on imaging study Intermittent lightheadedness Severe anemia Anxiety and depression Arthralgia of both hands Migraine Chronic rhinitis Vitamin D deficiency Recurrent sinusitis Environmental and seasonal allergies IBS (irritable bowel syndrome) Muscle contraction headache Mild intermittent asthma Early menopause Essential hypertension Hereditary hemorrhagic telangiectasia Surgical History Hx of thyroidectomy History of biopsy Hx of colonoscopy S/P correction of deviated nasal septum H/O umbilical hernia repair Hx of cholecystectomy Family History Father Prostate cancer Diabetes mellitus Hereditary hemorrhagic telangiectasia PTSD (post-traumatic stress disorder) Essential hypertension Substance use disorder Mental health disorder Mother Osteoporosis Brother Hereditary hemorrhagic telangiectasia Essential hypertension IBS (irritable bowel syndrome) Daughter Substance use disorder Mental health disorder Social History Household Members: Spouse Housing: House Alcohol intake: current Alcohol intake frequency: holidays/special occasions only Patient Tobacco Use Status: Never used Tobacco e-Cigarette/Vaping Use: Never Used service: No Current occupational status: employed Current [place] [employer] [place] Gender identity: Female Cognitive needs: No Hearing needs: No Vision needs: Yes Female Reproductive History Menstrual Age of Menarche: 11 Physical Exam Vital Signs: Last Vital Signs Pulse 78 08/06/23 13:49 BP 120/78 08/06/23 13:49 BMI result Body Mass Index 26.0 Assessment & Plan Assessment & Plan (1) Thyroid nodule greater than or equal to 1.5 cm in diameter incidentally noted on imaging study: Code(s): E04.1 - Nontoxic single thyroid nodule (2) Hypothyroidism: Code(s): E03.9 - Hypothyroidism, unspecified (3) Post-surgical hypothyroidism: Code(s): E89.0 - Postprocedural hypothyroidism Orders: Orders Free T4 (Free Thyroxine) 6 Weeks E89.0 - Postprocedural hypothyroidism Thyroid Stimulating Hormone 6 Weeks E89.0 - Postprocedural hypothyroidism Medications: New Synthroid (levothyroxine) 100 mcg PO DAILY 30 tabs 5RF NS Discontinued levothyroxine Discontinued Reason: Doctor's Order 88 mcg PO DAILY 30 tabs 0RF Quality Reporting (2019) Adult ([facility] ) Body Mass Index: 26.0 Coding Diagnoses Thyroid nodule greater than or equal to 1.5 cm in diameter incidentally noted on imaging study E04.1 Hypothyroidism E03.9 Post-surgical hypothyroidism E89.0
== END 2023-08-06 14:27 | disposition home or self-care (01) ==
PROVIDERS: PCP Internal Medicine; Visit Provider Internal Medicine Endocrinology, Diabetes & Metabolism
DX: E04.1 Nontoxic single thyroid nodule (principal); E89.0 Postprocedural hypothyroidism
CPT/HCPCS: 99213

== ENCOUNTER → 2023-08-06 13:47 | Outpatient (BNVA) | payer OTHER, SELFPAY | PROVIDERS: PCP Internal Medicine; Visit Provider Internal Medicine Endocrinology, Diabetes & Metabolism ==

== ENCOUNTER 2023-08-16 15:49 | Outpatient (REF) | payer OTHER, SELFPAY | END 2023-08-16 15:50 | disposition home or self-care (01) | LOC: HO.MDS 15:49 | PROVIDERS: Visit Provider Internal Medicine | DX: D50.8 Other iron deficiency anemias (principal) | CPT/HCPCS: 96365; J1756 ==

== ENCOUNTER 2023-09-05 13:25 | Outpatient (REF) | payer OTHER, SELFPAY | END 2023-09-05 13:26 | disposition home or self-care (01) | LOC: HO.MDS 13:25 | PROVIDERS: Visit Provider Internal Medicine | DX: D50.9 Iron deficiency anemia, unspecified (principal) | CPT/HCPCS: 96365; J1756 ==

== ENCOUNTER 2023-10-15 10:09 | Outpatient (REF) | payer OTHER, SELFPAY ==
[2023-10-15 14:11] LABS: Free T4 (Free Thyroxine) 1.26 ng/dL (0.71-1.85); Thyroid Stimulating Hormone 0.13 uIU/mL (0.32-4.0)
== END 2023-10-15 10:10 | disposition home or self-care (01) ==
LOC: HO.HMGCLDS 10:09
PROVIDERS: PCP Internal Medicine; Visit Provider Internal Medicine Endocrinology, Diabetes & Metabolism
DX: E89.0 Postprocedural hypothyroidism (principal)
CPT/HCPCS: 36415; 84439; 84443

== ENCOUNTER 2023-10-24 07:55 | Outpatient (AMB) | payer OTHER, SELFPAY ==
[2023-10-24 08:11] VITALS: BP 120/88; PULSE 84; O2SAT 100; BMI 26.0
--- NOTE | 2023-10-24 08:11 | A.OFFPC_ITS ---
Vital Signs 10/24/23 08:11 Height 5 ft 2 in Weight 142 lb 6 oz BMI 26.0 BP 120/88 Blood Pressure Location Rt brachial Position Sitting Pulse 84 Pulse Source Pulse Oximeter Pulse Oximetry (%) 100 Oxygen Delivery Method Room Air Intake Visit Reasons: annual PE Intake Note: Pt is here for her Annual PE Allergies iodine [IODINE] Allergy (Severe, Verified 10/24/23 08:17) ANAPHYLAXIS shellfish derived [SHELLFISH DERIVED] Allergy (Severe, Verified 10/24/23 08:17) ANAPHYLAXIS coconut Adverse Reaction (Unknown, Uncoded 10/24/23 08:17) sensativity Medication List - Last Reconciled 10/24/23 by Yasmin Castillo MD albuterol sulfate 90 mcg/actuation 2 inhalations inhalation Q6H PRN albuterol sulfate 2.5 mg (3 mL) inhalation Q6H PRN cholecalciferol (vitamin D3) 50 mcg PO DAILY hydrochlorothiazide 25 mg PO DAILY hyoscyamine sulfate ER 0.375 mg PO DAILY magnesium carb,citrate,oxide (Magnesium Complex) 300 mg PO DAILY montelukast 10 mg PO QAM nebulizers use as directed every 6 hours as needed for bronchospasm Synthroid (levothyroxine) 100 mcg PO DAILY NS Synthroid (levothyroxine) 88 mcg PO DAILY NS vitamin B complex 1 cap PO DAILY Tobacco use date assessed: 10/24/23 Dental Screening Dental Screen Date: 10/24/23 Did you have a dental visit in the last 12 months?: Yes Did you have a dental problem in the last 6 months where you did not have access to dental care?: No Was dental information given to patient?: Patient has dentist HPI annual PE HPI Details 52 year old lady with history of hereditary hemorrhagic telangiectasia, early menopause, mild intermittent asthma now only on albuterol as needed for episodes of bronchospasm and wheezing., irritable bowel syndrome, anxiety, multinodular thyroid, currently being followed by endocrinology , here today for physical exam. She currently sees Tiffany Dunlap at [facility] for her routine Pap and pelvic exam. She has?Postmenopausal atrophic vaginitis , previously on Prempro for more than 10 years She takes hyoscyamine sulfate ER once a day for IBS , and takes Hydrochlorothiazide for hypertension. Asthma symptoms are stable controlled on montelukast and as needed albuterol inhaler. Takes Fioricet as needed for migraine symptoms. She is up-to-date with her screening mammogram, done earlier this year, and her last pap smear was last done 03/19/2019 at [facility], and has an appointment later today for her repeat Pap and pelvic exam. She had her screening colonoscopy done by Dr. Chatman at [facility], who has left the practice and she needs to be referred to a new GI specialist. Her dose of levothyroxine was changed on last visit to alternating 188 mcg every other day, and latest thyroid levels showed mildly suppressed TSH with normal free T4. Has an appointment to see Dr. Bowles next month She currently sees a supervisor paper coating in [place],, Dr Esteban at [facility] , and is going to be part of the study for HHT, and will be on Avastin infusion q 2 weks for the 1st 3 months, then qweekly for another 3 months . Laboratory Tests 07/30/23 10/15/23 14:40 10:19 WBC 5.2 Hgb 12.6 Hct 38.4 Plt Count 320 TSH 0.13 L Free T4 1.26 [facility] Medical History (Updated 10/24/23 @ 09:05 by Yasmin Castillo MD) Post-surgical hypothyroidism Pigmented skin lesion of uncertain behavior of upper extremity Family history of osteoporosis Memory changes Disturbance, sleep Snoring Excessive daytime sleepiness Fatigue Hypothyroidism Symptomatic premature menopause Thyroid nodule greater than or equal to 1.5 cm in diameter incidentally noted on imaging study Intermittent lightheadedness Severe anemia Anxiety and depression Arthralgia of both hands Migraine Chronic rhinitis Vitamin D deficiency Recurrent sinusitis Environmental and seasonal allergies IBS (irritable bowel syndrome) Muscle contraction headache Mild intermittent asthma Early menopause Essential hypertension Hereditary hemorrhagic telangiectasia Surgical History Hx of thyroidectomy History of biopsy Hx of colonoscopy S/P correction of deviated nasal septum H/O umbilical hernia repair Hx of cholecystectomy Family History Father Prostate cancer Diabetes mellitus Hereditary hemorrhagic telangiectasia PTSD (post-traumatic stress disorder) Essential hypertension Substance use disorder Mental health disorder Mother Osteoporosis Brother Hereditary hemorrhagic telangiectasia Essential hypertension IBS (irritable bowel syndrome) Daughter Substance use disorder Mental health disorder Social History Household Members: Spouse Housing: House Alcohol intake: current Alcohol intake frequency: holidays/special occasions only Patient Tobacco Use Status: Never used Tobacco e-Cigarette/Vaping Use: Never Used service: No Current occupational status: employed 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 1. Little interest or pleasure in doing things: not at all 2. Feeling down, depressed, or hopeless: not at all 3. Trouble falling or staying asleep, or sleeping too much: several days 4. Feeling tired or having little energy: more than half the days 5. Poor appetite or overeating: not at all 6. Feeling bad about yourself - or that you are a failure or have let yourself or your family down: not at all 7. Trouble concentrating on things, such as reading the newspaper or watching television: several days 8. Moving or speaking so slowly that other people could have noticed. Or the opposite - being so fidgety or restless that you have been moving around a lot more than usual: not at all 9. Thoughts that you would be better off or of hurting yourself in some way: not at all Total score: 4 Depression Screening Interpretation: Negative Depression Screening Done: Yes 73324 - PHQ-9 Billing: Yes Source: Developed by Drs. Magan Sullivan, Evita Otoole, Holger Cabrera and colleagues, with an educational matt from [employer]. Thrive Questionnaire Date Thrive assessed: 10/24/23 I am a: Patient What is your living situation today?: I have a steady place to live Within the past 12 months, did the food you bought not last and you didn't have the money to get more?: Never true Within the past 12 months, did you worry whether your food would run out before you got money to buy more?: Never true Do you have trouble paying for medicines?: No Do you have trouble getting transportation to medical appointments?: No Do you have trouble paying your heating and electricity bill?: No Do you have trouble taking care of your child, family member or friend?: No Do you have trouble with day-to-day activities such as bathing, preparing meals, shopping, managing finances, etc.?: No Are you currently unemployed and looking for a job?: No Are you interested in more education?: No AUDIT C Alcohol Use Questionnaire (AUDIT-C) 1. How often do you have a drink containing alcohol?: Never Total Score: 0 VANESSA-7 AMB Questionnaire VANESSA-7 Date VANESSA - 7 assessed: 10/24/23 Feeling nervous, anxious, or on edge: 0 = Not at all Not being able to stop or control worryin = Not at all Worrying too much about different things: 0 = Not at all Trouble relaxin = Not at all Being so restless that it is hard to sit still: 0 = Not at all Becoming easily annoyed or irritable: 0 = Not at all Feeling afraid as if something awful might happen: 0 = Not at all Total VANESSA-7 score (0-4 normal; 5-9 mild; 10-14 moderate; 15-21 severe): 0 Source: Developed by Drs. Magan Sullivan, Evita Otoole, Holger Cabrera and colleagues, with an educational matt from [employer]. VANESSA-7 Assessment Billing VANESSA-7 Assessment Tool: VANESSA-7 Assessment 58780 Review of Systems Const Denies body aches, Denies fever(s), Reports headache(s) (Recurrent) and Denies weakness Eyes Details: Goes to [facility] for routine eye exam Denies change in vision ENT Denies dizziness, Reports headache(s) (Recurrent), Denies hoarseness, Denies nasal congestion, Denies nasal discharge and Denies sore throat Card Denies chest pain, Denies lightheadedness and Denies dyspnea Resp Denies chest congestion, Denies cough, Denies dyspnea and Denies wheezing GI Denies abdominal pain, Denies melena, Denies hematochezia, Reports change in stool character (Soft stools) and Denies heartburn Reports vaginal dryness Musc Reports arthralgias, Denies joint swelling and Reports stiffness Skin/Breast Reports lesions (Currently sees [facility]) Neuro Denies dizziness, Reports headache(s) (Recurrent), Denies Sensory deficit (Neuro) and Denies weakness Psych Reports no additional complaints Endo Reports no additional complaints Ankit/Lymph Reports easy bleeding Aller/Immun Denies seasonal rhinorrhea and Denies wheezing Physical exam (Primary Care) Vital Signs: Last Vital Signs Pulse 84 10/24/23 08:11 BP 120/88 10/24/23 08:11 Pulse Ox 100 10/24/23 08:11 Oxygen Delivery Method Room Air 10/24/23 08:11 BMI result Body Mass Index 26.0 Tobacco/Smoking Status: Tobacco use Status Tobacco use date assessed 10/24/23 10/24/23 08:17 Patient Tobacco Use Status Never used Tobacco 10/24/23 08:17 e-Cigarette/Vaping Use Never Used 10/24/23 08:17 PHQ-9: PHQ-9 Score PHQ-9: Total score 4 10/24/23 09:07 Depression Screening Interpretation: Negative Thrive Assessment: Date of Thrive Assessment Date Thrive assessed 10/24/23 10/24/23 08:28 Const General: cooperative, healthy appearing, no acute distress and alert Orientation/consciousness: patient oriented x3 HENMT Ears: hearing grossly normal bilaterally, external ears normal, TM's normal bilaterally and EAC's normal General nose exam: Normal external nose present and No nasal discharge present Face and sinus: Yes face symmetric Mouth: oropharynx normal and moist mucous membranes Eyes General: appearance normal, both eyes and all related structures Neck Neck: Yes full ROM Lymphatic: no lymphadenopathy noted Resp Effort & Inspection: normal respiratory effort and able to speak in complete sentences Auscultation: clear to auscultation bilaterally Cardio Rate: regular rate Rhythm: regular rhythm Heart sounds: S1 normal heart sound present and S2 normal heart sound present GI Palpation (GI): Soft to palpation, nontender, no guarding and no masses Auscultation: normal bowel sounds General: Yes no CVA tenderness and Yes deferred (Has appointment with her [facility] at [facility] [place] Pap and pelvic exam toda) Back/Spine/Pelvis Back: no CVA tenderness and No back tenderness Skin General skin exam: no rashes or lesions noted Neuro General: patient oriented x3, gait normal, tone normal, moves all extremities, Normal light touch and pain sensation and no focal motor deficits Sensory Exam: No Sensory deficit (Neuro) Extrem General: Yes full ROM, Yes no joint enlargement, Yes no clubbing, cyanosis or edema, Yes no calf tenderness and Yes normal gait Psych Appearance: grossly normal and well kempt Mental Status: mental status grossly normal Speech and movement: Normal speech and movement present Affect: normal affect Attitude: cooperative Thought process: Normal thought process present Thought content: Normal thought content present Assessment and Plan Assessment & Plan (1) Annual visit for general adult medical examination with abnormal findings: Code(s): Z00.01 - Encounter for general adult medical examination with abnormal findings Plan: Will check appropriate labs. Continue with regular dental visit every 6 months and regular eye exams, at least every 2 years. Take adequate calcium in diet and vitamin-D 3 at 2000 IU per cap once a day, in addition to weight-bearing exercises to help maintain good muscle tone and weight control. Instructed to do self-breast exam, and can to get yearly mammogram. Declined getting any vaccines at this time. Up-to-date with her colonoscopy, copy of report requested from [facility] (2) Hypothyroidism: Code(s): E03.9 - Hypothyroidism, unspecified Qualifiers: Hypothyroidism type: acquired Qualified Code(s): E03.9 - Hypothyroidism, unspecified Plan: Currently on alternating dose of levothyroxine 88 and 100 mcg every other day, latest thyroid levels are within normal limits except for mildly supressed TSH, with high normal free T4 level. Has an appointment to see Dr. Bowles again for follow-up next month (3) Migraine: Code(s): G43.909 - Migraine, unspecified, not intractable, without status migrainosus Qualifiers: Intractability: not intractable Migraine type: unspecified Status m igrainosus presence: without status migrainosus Qualified Code(s): G43.909 - Migraine, unspecified, not intractable, without status migrainosus (4) Mild intermittent asthma: Code(s): J45.20 - Mild intermittent asthma, uncomplicated Qualifiers: Asthma complication type: uncomplicated Qualified Code(s): J45.20 - Mild intermittent asthma, uncomplicated Plan: Only using albuterol inhaler as needed for bronchospasm and wheezing and on montelukast 10 mg daily. Does not want to get her vaccinations at this time, as she will be starting at [facility] for HHT (5) Essential hypertension: Code(s): I10 - Essential (primary) hypertension Plan: Blood pressure at goal of less than 130/80. Continue with current medication. Reinforced importance of following a low sodium diet, getting regular exercise, and lowering stress levels. (6) Hereditary hemorrhagic telangiectasia: Code(s): I78.0 - Hereditary hemorrhagic telangiectasia Plan: Followed by Dr. Farnsworth and is going to be part of a research study at [facility] with Dr. Beach, to be started on Avastin infusion next week for 6 months (7) Early menopause: Code(s): E28.319 - Asymptomatic premature menopause Plan: Advised to do regular weight-bearing exercise, take adequate calcium from dietary sources and take vitamin-D 3 [id number] at 2000 units once a day (8) IBS (irritable bowel syndrome): Code(s): K58.9 - Irritable bowel syndrome without diarrhea Plan: Currently on hyoscyamine, referred to Dr. Hsu, per patient's request for foll ow-up, as her previous GI has relocated out of state (9) Environmental and seasonal allergies: Code(s): J30.89 - Other allergic rhinitis Plan: Currently on month to lose 10 mg daily Orders: Orders IRON PROFILE Today D64.9 - Anemia, unspecified, E28.310 - Symptomatic premature menopause, E28.319 - Asymptomatic premature menopause, E55.9 - Vitamin D deficiency, unspecified, F32.A - Depression, unspecified, F41.9 - Anxiety disorder, unspecified, G43.909 - Migraine, unspecified, not intractable, without status migrainosus, I10 - Essential (primary) hypertension, I78.0 - Hereditary hemorrhagic telangiectasia, J45.20 - Mild intermittent asthma, uncomplicated, J45.40 - Moderate persistent asthma, uncomplicated, K58.9 - Irritable bowel syndrome without diarrhea Alanine Aminotransferase Today D64.9 - Anemia, unspecified, E28.310 - Symptomatic premature menopause, E28.319 - Asymptomatic premature menopause, E55.9 - Vitamin D deficiency, unspecified, F32.A - Depression, unspecified, F41.9 - Anxiety disorder, unspecified, G43.909 - Migraine, unspecified, not intractable, without status migrainosus, I10 - Essential (primary) hypertension, I78.0 - Hereditary hemorrhagic telangiectasia, J45.20 - Mild intermittent asthma, uncomplicated, J45.40 - Moderate persistent asthma, uncomplicated, K58.9 - Irritable bowel syndrome without diarrhea Aspartate Amino Transferase Today D64.9 - Anemia, unspecified, E28.310 - Symptomatic premature menopause, E28.319 - Asymptomatic premature menopause, E55.9 - Vitamin D deficiency, unspecified, F32.A - Depression, unspecified, F41.9 - Anxiety disorder, unspecified, G43.909 - Migraine, unspecified, not intractable, without status migrainosus, I10 - Essential (primary) hypertension, I78.0 - Hereditary hemorrhagic telangiectasia, J45.20 - Mild intermittent asthma, uncomplicated, J45.40 - Moderate persistent asthma, uncomplicated, K58.9 - Irritable bowel syndrome without diarrhea Lipid Panel Today D64.9 - Anemia, unspecified, E28.310 - Symptomatic premature menopause, E28.319 - Asymptomatic premature menopause, E55.9 - Vitamin D deficiency, unspecified, F32.A - Depression, unspecified, F41.9 - Anxiety disorder, unspecified, G43.909 - Migraine, unspecified, not intractable, without status migrainosus, I10 - Essential (primary) hypertension, I78.0 - Hereditary hemorrhagic telangiectasia, J45.20 - Mild intermittent asthma, uncomplicated, J45.40 - Moderate persistent asthma, uncomplicated, K58.9 - Irritable bowel syndrome without diarrhea Complete Blood Count Auto Diff Today D64.9 - Anemia, unspecified, E28.310 - Symptomatic premature menopause, E28.319 - Asymptomatic premature menopause, E55.9 - Vitamin D deficiency, unspecified, F32.A - Depression, unspecified, F41.9 - Anxiety disorder, unspecified, G43.909 - Migraine, unspecified, not intractable, without status migrainosus, I10 - Essential (primary) hypertension, I78.0 - Hereditary hemorrhagic telangiectasia, J45.20 - Mild intermittent asthma, uncomplicated, J45.40 - Moderate persistent asthma, uncomplicated, K58.9 - Irritable bowel syndrome without diarrhea Basic Metabolic Panel Fasting Today D64.9 - Anemia, unspecified, E28.310 - Symptomatic premature menopause, E28.319 - Asymptomatic premature menopause, E55.9 - Vitamin D deficiency, unspecified, F32.A - Depression, unspecified, F41.9 - Anxiety disorder, unspecified, G43.909 - Migraine, unspecified, not intractable, without status migrainosus, I10 - Essential (primary) hypertension, I78.0 - Hereditary hemorrhagic telangiectasia, J45.20 - Mild intermittent asthma, uncomplicated, J45.40 - Moderate persistent asthma, uncomplicated, K58.9 - Irritable bowel syndrome without diarrhea Vitamin D 25-OH Total Today D64.9 - Anemia, unspecified, E28.310 - Symptomatic premature menopause, E28.319 - Asymptomatic premature menopause, E55.9 - Vitamin D deficiency, unspecified, F32.A - Depression, unspecified, F41.9 - Anxiety disorder, unspecified, G43.909 - Migraine, unspecified, not intractable, without status migrainosus, I10 - Essential (primary) hypertension, I78.0 - Hereditary hemorrhagic telangiectasia, J45.20 - Mild intermittent asthma, uncomplicated, J45.40 - Moderate persistent asthma, uncomplicated, K58.9 - Irritable bowel syndrome without diarrhea Referrals Gastroenterology Referral K58.9 - Irritable bowel syndrome without diarrhea Coding Level of Care Code Est Pt Prev Care 40-64y(92505) Diagnoses Annual visit for general adult medical examination with abnormal findings Z00.01 Acquired hypothyroidism E03.9 Hypothyroidism type: acquired Migraine without status migrainosus, not intractable, unspecified migraine type G43.909 Intractability: not intractable Migraine type: unspecified Status migrainosus presence: without status migrainosus Mild intermittent asthma without complication J45.20 Asthma complication type: uncomplicated Essential hypertension I10 Hereditary hemorrhagic telangiectasia I78.0 Early menopause E28.319 IBS (irritable bowel syndrome) K58.9 Environmental and seasonal allergies J30.89 Additional Codes VANESSA-7 Assessment Billing - VANESSA-7 Assessment Tool: VANESSA-7 Assessment 44810 ([id number])
== END 2023-10-24 08:55 | disposition home or self-care (01) ==
PROVIDERS: Visit Provider Internal Medicine
DX: Z00.00 Encounter for general adult medical examination without abnormal findings (principal); I78.0 Hereditary hemorrhagic telangiectasia; E03.9 Hypothyroidism, unspecified; G43.909 Migraine, unspecified, not intractable, without status migrainosus; J45.20 Mild intermittent asthma, uncomplicated; I10 Essential (primary) hypertension; E28.319 Asymptomatic premature menopause; K58.9 Irritable bowel syndrome, unspecified; J30.89 Other allergic rhinitis
CPT/HCPCS: 99396

== ENCOUNTER 2023-10-24 08:55 | Outpatient (REF) | payer OTHER, SELFPAY ==
[2023-10-24 11:32] LABS: MANUAL DIFF FLAG NO
[2023-10-24 12:00] LABS: Basophils Absolute Auto 0.1 X10*3/uL (0.0-0.2); Basophils Percent Auto 1.1 % (0-2); Eosinophils Absolute Auto 0.1 X10*3/uL (0.0-0.4); Eosinophils Percent Auto 3.1 % (0-4); Hematocrit 41.1 % (37.0-47.0); Hemoglobin 13.9 g/dl (12.0-16.0); Lymphocytes Absolute Auto 1.3 X10*3/uL (1.2-4.9); Lymphocytes Percent Auto 29.3 % (20-40); Mean Corpuscular HGB Conc 33.8 g/dl (31.0-35.0); Mean Corpuscular Hemoglobin 29.1 pg (27.0-33.0); Mean Platelet Volume 9.6 fL (9.4-12.3); Monocytes Absolute Auto 0.5 X10*3/uL (0.1-1.2); Monocytes Percent Auto 10.1 % (2-11); Neutrophils Absolute Auto 2.6 x10*3/uL (2.0-8.3); Neutrophils Percent Auto 56.4 % (45-73); Platelet Count 311 X10*3/uL (160-400); Red Blood Count 4.78 X10*6/uL (4.20-5.50); Red Cell Distribution Width 13.7 % (11.0-16.0); White Blood Count 4.6 X10*3/uL (4.8-10.8)
[2023-10-24 12:25] LABS: Alanine Aminotransferase 30 U/L (0-31); Anion Gap 14 (12-20); Aspartate Amino Transferase 28 U/L (5-31); Blood Urea Nitrogen 13 mg/dL (9-16); Calcium 9.2 mg/dL (8.4-10.2); Carbon Dioxide 25 mmol/L (22-29); Chloride 104 mmol/L (96-108); Cholesterol 166 mg/dL (<200); Estimated Glomerular Filt Rate > 60; Glucose Fasting 89 mg/dL (60-99); HDL Cholesterol 41 mg/dL (>40); Iron 96 mcg/dL (30-160); LDL Cholesterol Calculated 102 mg/dL (<100); Percent Iron Saturation 42 % (15-50); Potassium 2.8 mmol/L (3.3-5.1); Sodium 140 mmol/L (135-145); Total Iron Binding Capacity 230 mcg/dL (228-428); Triglycerides 119 mg/dL (<150); Unsaturated Iron Binding 134 ug/dL
== END 2023-10-24 08:56 | disposition home or self-care (01) ==
LOC: HO.HMGCLDS 08:55
PROVIDERS: PCP Internal Medicine; Visit Provider Internal Medicine
DX: D64.9 Anemia, unspecified (principal); J45.40 Moderate persistent asthma, uncomplicated; E28.310 Symptomatic premature menopause; F41.9 Anxiety disorder, unspecified; F32.A Depression, unspecified; E55.9 Vitamin D deficiency, unspecified; G43.909 Migraine, unspecified, not intractable, without status migrainosus; J45.20 Mild intermittent asthma, uncomplicated; E28.319 Asymptomatic premature menopause; I10 Essential (primary) hypertension; I78.0 Hereditary hemorrhagic telangiectasia; K58.9 Irritable bowel syndrome, unspecified
CPT/HCPCS: 36415; 80048; 80061; 82306; 83540; 84450; 84460; 85025

== ENCOUNTER 2023-12-18 12:55 | Outpatient (AMB) | payer OTHER, SELFPAY ==
[2023-12-18 13:25] VITALS: BP 118/70; PULSE 97; O2SAT 97; BMI 26.2
--- NOTE | 2023-12-18 13:25 | MHC.PC.OV ---
Vital Signs 12/18/23 13:25 Height 5 ft 2 in Weight 143 lb BMI 26.2 BP 118/70 Blood Pressure Location Lt brachial Position Sitting Pulse 97 Pulse Source Pulse Oximeter Pulse Oximetry (%) 97 Oxygen Delivery Method Room Air Intake Visit Reasons: chronic migraines & increase joint pain Intake Note: Pt is here today c/o chronic migraines and increase joint pain Allergies iodine [IODINE] Allergy (Severe, Verified 12/25/23 21:57) ANAPHYLAXIS shellfish derived [SHELLFISH DERIVED] Allergy (Severe, Verified 12/25/23 21:57) ANAPHYLAXIS coconut Adverse Reaction (Unknown, Uncoded 12/25/23 21:57) sensativity Medication List - Last Reconciled 12/25/23 by Yasmin Castillo MD albuterol sulfate 90 mcg/actuation 2 inhalations inhalation Q6H PRN albuterol sulfate 2.5 mg (3 mL) inhalation Q6H PRN cholecalciferol (vitamin D3) 50 mcg PO DAILY hydrochlorothiazide 25 mg PO DAILY hyoscyamine sulfate ER 0.375 mg PO DAILY magnesium carb,citrate,oxide (Magnesium Complex) 300 mg PO DAILY montelukast 10 mg PO QAM nebulizers use as directed every 6 hours as needed for bronchospasm Synthroid (levothyroxine) 88 mcg PO DAILY NS vitamin B complex 1 cap PO DAILY Tobacco use date assessed: 12/18/23 Dental Screening Dental Screen Date: 12/18/23 Did you have a dental visit in the last 12 months?: Yes Did you have a dental problem in the last 6 months where you did not have access to dental care?: No Was dental information given to patient?: Patient has dentist HPI chronic migraines & increase joint pain HPI Details 53-year-old lady with history of hereditary hemorrhagic telangiectasia, will be participating in a drug study for HHT conducted by [facility] starting in January, here today complaining of having more frequent headaches,occasionally accompanied by dizziness, nausea. She is also here for follow-up on her hypothyroidism. She is currently taking Synthroid 100 mcg daily, states that she feels fine on present dose. [facility] Medical History (Updated 12/18/23 @ 13:59 by Yasmin Castillo MD) Hypokalemia Post-surgical hypothyroidism Pigmented skin lesion of uncertain behavior of upper extremity Family history of osteoporosis Memory changes Disturbance, sleep Snoring Excessive daytime sleepiness Fatigue Hypothyroidism Symptomatic premature menopause Thyroid nodule greater than or equal to 1.5 cm in diameter incidentally noted on imaging study Intermittent lightheadedness Severe anemia Anxiety and depression Arthralgia of both hands Migraine Chronic rhinitis Vitamin D deficiency Recurrent sinusitis Environmental and seasonal allergies IBS (irritable bowel syndrome) Muscle contraction headache Mild intermittent asthma Early menopause Essential hypertension Hereditary hemorrhagic telangiectasia Surgical History Hx of thyroidectomy History of biopsy Hx of colonoscopy S/P correction of deviated nasal septum H/O umbilical hernia repair Hx of cholecystectomy Family History Father Prostate cancer Diabetes mellitus Hereditary hemorrhagic telangiectasia PTSD (post-traumatic stress disorder) Essential hypertension Substance use disorder Mental health disorder Mother Osteoporosis Brother Hereditary hemorrhagic telangiectasia Essential hypertension IBS (irritable bowel syndrome) Daughter Substance use disorder Mental health disorder Social History Household Members: Spouse Housing: House Alcohol intake: current Alcohol intake frequency: holidays/special occasions only Patient Tobacco Use Status: Never used Tobacco e-Cigarette/Vaping Use: Never Used service: No Current occupational status: employed 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 [id number] - PHQ-9 Billing: Patient declined-do not bill Source: Developed by Drs. Magan Sullivan, Evita Otoole, Holger Cabrera and colleagues, with an educational matt from [employer]. Thrive Questionnaire Date Thrive assessed: 12/18/23 What is your living situation today?: I choose not to answer this question Within the past 12 months, did the food you bought not last and you didn't have the money to get more?: I choose not to answer this question Within the past 12 months, did you worry whether your food would run out before you got money to buy more?: I choose not to answer this question Do you have trouble paying for medicines?: I choose not to answer this question Do you have trouble getting transportation to medical appointments?: I choose not to answer this question Do you have trouble paying your heating and electricity bill?: I choose not to answer this question Do you have trouble taking care of your child, family member or friend?: I choose not to answer this question Do you have trouble with day-to-day activities such as bathing, preparing meals, shopping, managing finances, etc.?: I choose not to answer this question Are you currently unemployed and looking for a job?: I choose not to answer this question Are you interested in more education?: I choose not to answer this question THRIVE Score: 0 AUDIT C Alcohol Use Questionnaire (AUDIT-C) 1. How often do you have a drink containing alcohol?: Never Total Score: 0 VANESSA-7 AMB Questionnaire VANESSA-7 Date VANESSA - 7 assessed: 12/18/23 Source: Developed by Drs. Magan Sullivan, Evita Otoole, Holger Cabrera and colleagues, with an educational matt from [employer]. VANESSA-7 Assessment Billing VANESSA-7 Assessment Tool: pt declined-do not bill Review of Systems Const Reports as per HPI, Denies body aches, Denies fever(s) and Denies weakness Eyes Details: Goes to [facility] for routine eye exam Denies change in vision ENT Denies hoarseness, Denies nasal congestion, Denies nasal discharge and Denies sore throat Card Denies chest pain, Denies lightheadedness and Denies dyspnea Resp Denies chest congestion, Denies cough, Denies dyspnea and Denies wheezing GI Denies abdominal pain, Denies melena, Denies hematochezia and Denies heartburn Reports vaginal dryness Musc Reports arthralgias, Denies joint swelling and Reports stiffness Neuro Denies Sensory deficit (Neuro) and Denies weakness Psych Reports no additional complaints Endo Reports no additional complaints Ankit/Lymph Reports easy bleeding Aller/Immun Denies seasonal rhinorrhea and Denies wheezing Physical exam (Primary Care) Vital Signs: Last Vital Signs Pulse 97 12/18/23 13:25 BP 118/70 12/18/23 13:25 Pulse Ox 97 12/18/23 13:25 Oxygen Delivery Method Room Air 12/18/23 13:25 BMI result Body Mass Index 26.2 Tobacco/Smoking Status: Tobacco use Status Tobacco use date assessed 12/18/23 12/18/23 13:33 Patient Tobacco Use Status Never used Tobacco 12/18/23 13:27 e-Cigarette/Vaping Use Never Used 12/18/23 13:27 Thrive Assessment: Date of Thrive Assessment Date Thrive assessed 12/18/23 12/18/23 13:33 Const General: cooperative, healthy appearing, no acute distress and alert Orientation/consciousness: patient oriented x3 HENMT Ears: external ears normal General nose exam: Normal external nose present Face and sinus: Yes face symmetric Mouth: oropharynx normal and moist mucous membranes Eyes General: appearance normal, both eyes and all related structures Neck Neck: Yes full ROM Lymphatic: no lymphadenopathy noted Resp Effort & Inspection: normal respiratory effort and able to speak in complete sentences Auscultation: clear to auscultation bilaterally Cardio Rate: regular rate Rhythm: regular rhythm Heart sounds: S1 normal heart sound present and S2 normal heart sound present GI Palpation (GI): Soft to palpation, nontender and no masses Auscultation: normal bowel sounds General: Yes no CVA tenderness Back/Spine/Pelvis Back: no CVA tenderness and No back tenderness Skin General skin exam: no rashes or lesions noted Neuro General: patient oriented x3, gait normal, tone normal, moves all extremities, Normal light touch and pain sensation and no focal motor deficits Sensory Exam: No Sensory deficit (Neuro) Extrem General: Yes full ROM, Yes no joint enlargement, Yes no clubbing, cyanosis or edema, Yes no calf tenderness and Yes normal gait Psych Appearance: grossly normal and well kempt Mental Status: mental status grossly normal Speech and movement: Normal speech and movement present Affect: normal affect Attitude: cooperative Thought process: Normal thought process present Thought content: Normal thought content present Assessment and Plan Assessment & Plan (1) Post-surgical hypothyroidism: Code(s): E89.0 - Postprocedural hypothyroidism Plan: Repeat TSH and free T4 ordered, in the meantime continue with current dose of Synthroid (2) Frequent headaches: Code(s): R51.9 - Headache, unspecified Plan: CT of head/brain without IV contrast ordered. Basic metabolic panel, vitamin-D B12 and folic acid level magnesium labs ordered Orders: Orders Basic Metabolic Panel Fasting 12/18/23 E87.6 - Hypokalemia, E89.0 - Postprocedural hypothyroidism, R51.9 - Headache, unspecified Yasmin C Espinas, MD CT head/brain wo IV con 12/18/23 R51.9 - Headache, unspecified Yasmin Castillo MD Vitamin D 25-OH Total 12/18/23 E87.6 - Hypokalemia, E89.0 - Postprocedural hypothyroidism, R51.9 - Headache, unspecified Yasmin Castillo MD Vitamin B12 and Folate 12/18/23 E87.6 - Hypokalemia, E89.0 - Postprocedural hypothyroidism, R51.9 - Headache, unspecified Yasmin Castillo MD Magnesium 12/18/23 E87.6 - Hypokalemia, E89.0 - Postprocedural hypothyroidism, R51.9 - Headache, unspecified Yasmin Castillo MD Free T4 (Free Thyroxine) 6 Weeks E87.6 - Hypokalemia, E89.0 - Postprocedural hypothyroidism, R51.9 - Headache, unspecified Magan Bowles MD Thyroid Stimulating Hormone 6 Weeks E87.6 - Hypokalemia, E89.0 - Postprocedural hypothyroidism, R51.9 - Headache, unspecified Magan Bowles MD Medications: Discontinued Synthroid (levothyroxine) Discontinued Reason: Doctor's Order 100 mcg PO DAILY 30 tabs 5RF NS Magan Bowles MD Coding Level of Care Code Est Pt Level 3 (32563) Diagnoses Post-surgical hypothyroidism E89.0 Frequent headaches R51.9
== END 2023-12-18 14:14 | disposition home or self-care (01) ==
PROVIDERS: PCP Internal Medicine; Visit Provider Internal Medicine
DX: E89.0 Postprocedural hypothyroidism (principal); R51.9 Headache, unspecified
CPT/HCPCS: 99213

== ENCOUNTER 2023-12-18 14:06 | Outpatient (REF) | payer OTHER, SELFPAY ==
[2023-12-18 16:26] LABS: Anion Gap 11 (12-20); Blood Urea Nitrogen 16 mg/dL (9-16); Calcium 8.9 mg/dL (8.4-10.2); Carbon Dioxide 24 mmol/L (22-29); Chloride 110 mmol/L (96-108); Estimated Glomerular Filt Rate > 60; Glucose Fasting 88 mg/dL (60-99); Potassium 3.5 mmol/L (3.3-5.1); Sodium 141 mmol/L (135-145)
[2023-12-18 16:41] LABS: Vitamin D 25-OH Total 37.2 ng/mL (>30)
[2023-12-18 16:45] LABS: Free T4 (Free Thyroxine) 1.21 ng/dL (0.71-1.85); Thyroid Stimulating Hormone 0.28 uIU/mL (0.32-4.0)
[2023-12-18 16:55] LABS: Folate 10.6 ng/mL (> or = 4.0); Vitamin B12 436 pg/mL (200-900)
== END 2023-12-18 14:07 | disposition home or self-care (01) ==
LOC: HO.HMGCLDS 14:06
PROVIDERS: Internal Medicine Endocrinology, Diabetes & Metabolism; PCP Internal Medicine; Visit Provider Internal Medicine
DX: R51.9 Headache, unspecified (principal); E87.6 Hypokalemia; E89.0 Postprocedural hypothyroidism
CPT/HCPCS: 36415; 80048; 82306; 82607; 82746; 83735; 84439; 84443

== ENCOUNTER 2024-01-08 14:12 | Outpatient (AMB) | payer OTHER, SELFPAY ==
--- NOTE | 2024-01-08 14:19 | MHC.OFFVIS ---
Intake Vital Signs 01/08/24 14:20 Height 5 ft 2 in Weight 140 lb BMI 25.6 BP 121/79 Blood Pressure Location Lt brachial Position Sitting Pulse 81 Intake Visit Reasons: IBS w/o diarrhea Intake Note: Melva presents in the office as a new patient for IBS w/o Diarrhea. CC: She states that she also has a HHT condition and she is prone to hemorrhoids. She had to use some to shrink them. She has intermittent mucus that occurs and a spasming bladder. She states that she has external and she may have internal. She was using wipes and witch ivelisse. She states that she does not have normal bowel movements. Chronic Hemangiomas on her liver as well and she gets chronic nse bleeds. Irrigation Specialist Required: No Allergies iodine [IODINE] Allergy (Severe, Verified 01/08/24 14:20) ANAPHYLAXIS shellfish derived [SHELLFISH DERIVED] Allergy (Severe, Verified 01/08/24 14:20) ANAPHYLAXIS coconut Adverse Reaction (Unknown, Uncoded 01/08/24 14:20) sensativity HPI IBS w/o diarrhea HPI Details 53-year-old female with past medical history of hypothyroidism, anemia, migraine headaches, chronic rhinitis, IBS, asthma, hypertension, HHT (hereditary hemorrhagic telangiectasia) is here today for initial consultation. Patient was diagnosed with IBS long time ago, however her symptoms are more aggravating lately. Patient reports occasional dyspepsia without dysphagia or odynophagia. Patient reports that she will have frequent mucus when going to the bathroom. Reports urge without actual bowel movement, frequent need to strain in order to have a bowel movement. Patient reports abdominal bloating. Patient reports that depending on what she eats her symptoms are worse. Patient states that when she goes to her sister's house and eats food that it is more natural without gluten she feels better. Patient will be going to [place] for trial of new medication to help with HHT. Currently patient has frequent nosebleeds. Occasional rectal bleed from hemorrhoids when she is really constipated. History of colonoscopies in the past, however unsure if she had any polyps at that time. Platelet counts were normal as well as PT and INR. History of hemangiomas of the liver. [facility] Medical History Hypokalemia Post-surgical hypothyroidism Pigmented skin lesion of uncertain behavior of upper extremity Family history of osteoporosis Memory changes Disturbance, sleep Snoring Excessive daytime sleepiness Fatigue Hypothyroidism Symptomatic premature menopause Thyroid nodule greater than or equal to 1.5 cm in diameter incidentally noted on imaging study Intermittent lightheadedness Severe anemia Anxiety and depression Arthralgia of both hands Migraine Chronic rhinitis Vitamin D deficiency Recurrent sinusitis Environmental and seasonal allergies IBS (irritable bowel syndrome) Muscle contraction headache Mild intermittent asthma Early menopause Essential hypertension Hereditary hemorrhagic telangiectasia Surgical History Hx of thyroidectomy History of biopsy Hx of colonoscopy S/P correction of deviated nasal septum H/O umbilical hernia repair Hx of cholecystectomy Family History Father Prostate cancer Diabetes mellitus Hereditary hemorrhagic telangiectasia PTSD (post-traumatic stress disorder) Essential hypertension Substance use disorder Mental health disorder Mother Osteoporosis Brother Hereditary hemorrhagic telangiectasia Essential hypertension IBS (irritable bowel syndrome) Daughter Substance use disorder Mental health disorder Social History Household Members: Spouse Housing: House Alcohol intake: current Alcohol intake frequency: holidays/special occasions only Patient Tobacco Use Status: Never used Tobacco e-Cigarette/Vaping Use: Never Used service: No Current occupational status: employed 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 identity: Female Cognitive needs: No Hearing needs: No Vision needs: Yes Female Reproductive History Menstrual Age of Menarche: 11 Review of Systems Const Denies weight gain and Denies weight loss ENT Reports no additional complaints, Denies dysphagia and Denies odynophagia Card Reports no additional complaints Resp Reports no additional complaints GI Denies abdominal pain, Denies belching, Denies melena, Denies bloating, Denies change in bowel habits, Denies dysphagia, Denies excessive flatus, Denies dyspepsia, Denies heartburn, Denies diarrhea, Denies loose stools, Denies nausea, Denies odynophagia and Denies vomiting Reports no additional complaints Musc Reports no additional complaints Neuro Reports no additional complaints Psych Reports no additional complaints Endo Reports no additional complaints Physical Exam Vital Signs: Last Vital Signs Pulse 81 01/08/24 14:20 BP 121/79 01/08/24 14:20 BMI result Body Mass Index 25.6 Const General: healthy appearing, no acute distress and well developed Nutritional Appearance: well nourished Orientation/consciousness: patient oriented x3 Resp Effort & Inspection: normal respiratory effort, able to speak in complete sentences, no tracheal deviation and symmetric chest movement Auscultation: clear to auscultation bilaterally Cardio Rate: regular rate GI Inspection: Yes normal to inspection and No distended Palpation (GI): Soft to palpation, not firm, nontender and No hepatosplenomegaly present Auscultation: normal bowel sounds General: Yes no CVA tenderness Back/Spine/Pelvis Back: no CVA tenderness Skin General skin exam: elasticity normal, turgor normal and dry skin Neuro General: patient oriented x3 Psych Appearance: grossly normal Mental Status: mental status grossly normal Assessment & Plan Assessment & Plan (1) Hereditary hemorrhagic telangiectasia: Code(s): I78.0 - Hereditary hemorrhagic telangiectasia (2) IBS (irritable bowel syndrome): Code(s): K58.9 - Irritable bowel syndrome without diarrhea Qualifiers: Irritable bowel syndrome type: with both diarrhea and constipation Qualified Code(s): K58.2 - Mixed irritable bowel syndrome (3) Postprandial abdominal bloating: Code(s): R14.0 - Abdominal distension (gaseous) (4) Constipation: Code(s): K59.00 - Constipation, unspecified Qualifiers: Constipation type: slow transit constipation Qualified Code(s): K59.01 - Slow transit constipation Plan Epigastric discomfort and occasional postprandial abdominal bloating. Discussed with patient avoiding dietary triggers and late night snacking. Patient will try low FODMAP diet and do elimination diet if possible. Will rule out celiac, pancreatitis. Will check CRP if elevated will check fecal calprotectin to rule out IBD. Patient will be sent for abdominal ultrasound to check liver for hepatic hemangioma, rule out hepatic AVMs, and shunting between the hepatic artery and portal vein. Patient's IBS symptoms can be controlled with diet. Making sure that she empties her bowels completely. Patient will take Citrucel in the morning to help bulk her stools and senna in the evening to help empty her bowels. I will see patient in 3 months, sooner on as needed basis. Patient is agreeable to this plan and verbalizes understanding of instructions. She was given the opportunity to ask questions and all questions answered. Thank you for allowing me to participate in her care Orders: Orders Transglutaminase Ab IgG 01/08/24 R10.9 - Unspecified abdominal pain Transglutaminase IgA 01/08/24 R10.9 - Unspecified abdominal pain Lipase 01/08/24 R10.9 - Unspecified abdominal pain US abdomen complete Today D18.00 - Hemangioma unspecified site, I78.0 - Hereditary hemorrhagic telangiectasia C Reactive Protein 01/08/24 K58.9 - Irritable bowel syndrome without diarrhea Medications: New sennosides (Natural Senna Laxative) 17.2 mg (2 x 8.6 mg) PO BEDTIME 60 tabs 3RF constipation K59.00 - Constipation, unspecified methylcellulose (laxative) (Citrucel) take it with full glass of water 500 mg PO DAILY 90 tabs 2RF K59.00 - Constipation, unspecified Coding Level of Care Code New Pt Level 4 (85732) Diagnoses Hereditary hemorrhagic telangiectasia I78.0 Irritable bowel syndrome with both constipation and diarrhea K58.2 Irritable bowel syndrome type: with both diarrhea and constipation Postprandial abdominal bloating R14.0 Slow transit constipation K59.01 Constipation type: slow transit constipation Time Spent (min) 45 Comment 30 minutes spent with patient and additional 15 minutes spent reviewing her records
[2024-01-08 14:20] VITALS: BP 121/79; PULSE 81; BMI 25.6
== END 2024-01-08 15:10 | disposition home or self-care (01) ==
PROVIDERS: PCP Internal Medicine; Visit Provider Nurse Practitioner Family
DX: I78.0 Hereditary hemorrhagic telangiectasia (principal); K58.2 Mixed irritable bowel syndrome; R14.0 Abdominal distension (gaseous); K59.01 Slow transit constipation
CPT/HCPCS: 99204

== ENCOUNTER → 2024-01-08 14:12 | Outpatient (BNVA) | payer OTHER, SELFPAY | PROVIDERS: PCP Internal Medicine; Visit Provider Nurse Practitioner Family ==

== ENCOUNTER 2024-01-14 11:11 | Outpatient (REF) | payer OTHER, SELFPAY ==
--- NOTE | ~2024-01-14 | US_ITS ---
EXAMINATION: US ABDOMEN COMPLETE CLINICAL INFORMATION: Head injury hemorrhagic telangiectasia.. COMPARISON: None available. TECHNIQUE: Real-time imaging of the abdominal viscera. FINDINGS: PANCREAS: Normal. ABDOMINAL AORTA: The proximal, mid, and distal segments are normal in caliber. INFERIOR VENA CAVA: Visualized portions are normal. LIVER: he liver is normal in size. The liver contour is normal. Parenchymal echogenicity is normal. There is a solid right hepatic lobe lesion measuring 5.2 x 4.0 x 5.0 cm with feeding vessels.. In addition there several smaller hyperechoic right hepatic lobe lesions suggestive of small hemangiomas. They measure 0.8 x 1.1 x 0.7 cm, and 0.9 x 0.9 x 0.7 cm and 0.4 x 0.4 x 0.4 cm. No focal hepatic lesion. There is no intrahepatic biliary duct dilatation seen. GALLBLADDER: Normal. The gallbladder is physiologically distended without evidence of stones, sludge, polyps, wall thickening or pericholecystic fluid. COMMON BILE DUCT: Normal in caliber measuring 0.48 cm in diameter. RIGHT KIDNEY: Normal. No hydronephrosis. No renal calculi or focal parenchymal lesions. The kidney measures 9.6 cm in maximum dimension. LEFT KIDNEY: Normal. No hydronephrosis. No renal calculi or focal parenchymal lesions. The kidney measures 9.4 cm in maximum dimension. SPLEEN: Normal. The spleen measures 9.4 cm in maximum dimension. FREE FLUID: None. US/US abdomen complete IMPRESSION: Largest right hepatic lobe solid lesion with feeding vessels likely slightly atypical hemangioma Multiple small hyperechoic right hepatic lobe lesions most suggestive of small hemangiomas. Rest of the abdominal ultrasound is unremarkable.
== END 2024-01-14 11:12 | disposition home or self-care (01) ==
LOC: HO.HMGCX 11:11
PROVIDERS: PCP Internal Medicine; Visit Provider Nurse Practitioner Family
DX: I78.0 Hereditary hemorrhagic telangiectasia (principal); D18.09 Hemangioma of other sites; K76.9 Liver disease, unspecified; Z90.49 Acquired absence of other specified parts of digestive tract
CPT/HCPCS: 76700

== ENCOUNTER 2024-01-17 13:33 | Outpatient (REF) | payer OTHER, SELFPAY ==
--- NOTE | ~2024-01-17 | CT_ITS ---
EXAMINATION: CT HEAD WITHOUT CONTRAST CLINICAL INFORMATION: Headache COMPARISON: None available. TECHNIQUE: Contiguous axial imaging was performed from the skull base to vertex without intravenous administration of contrast. This CT examination was performed using dose optimization techniques as appropriate, variously including the following: *Automated exposure control *Adjustment of mA and/or kV according to patient size (this includes techniques or standardized protocols for targeted exams where dose is matched to indication/reason for exam; i.e. extremities or head) *Use of iterative reconstruction technique DLP: 753.84 mGy-cm FINDINGS: Ventricles, sulci and cisterns are normal. There is no midline shift, no abnormal intra- or extra- axial fluid accumulation. Robles and white matter differentiation is normal. Bone window images show no evidence of skull fracture. Moderate polypoid mucosal thickening is seen in the right maxillary sinus floor. CT/CT head/brain wo IV con IMPRESSION: 1. Normal CT scan of the brain. 2. No intracranial hemorrhage or skull fracture is seen. 3. No evidence of space occupying lesion could be found. 4. The current plain CT scan of the brain shows no diagnostic evidence of acute cerebral infarction. 5. Moderate right maxillary sinus floor mucosal thickening is seen.
== END 2024-01-17 13:34 | disposition home or self-care (01) ==
LOC: HO.CT 13:33
PROVIDERS: PCP Internal Medicine; Visit Provider Internal Medicine
DX: R51.9 Headache, unspecified (principal)
CPT/HCPCS: 70450

== ENCOUNTER 2024-01-30 09:37 | Outpatient (REF) | payer OTHER, SELFPAY ==
[2024-01-30 12:05] LABS: C Reactive Protein 0.63 mg/dL (< or = 0.50); Lipase 25 U/L (8-78)
[2024-01-30 12:11] LABS: Free T4 (Free Thyroxine) 1.08 ng/dL (0.71-1.85); Thyroid Stimulating Hormone 3.22 uIU/mL (0.32-4.0)
[2024-01-31 13:33] LABS: Transglutaminase Ab IgG <1.0 U/mL; Transglutaminase IgA <1.0 U/mL
== END 2024-01-30 09:38 | disposition home or self-care (01) ==
LOC: HO.HMGCLDS 09:37
PROVIDERS: PCP Internal Medicine; Referring Provider Internal Medicine Endocrinology, Diabetes & Metabolism; Visit Provider Nurse Practitioner Family
DX: R10.9 Unspecified abdominal pain (principal); E89.0 Postprocedural hypothyroidism; E87.6 Hypokalemia; K58.9 Irritable bowel syndrome, unspecified; R51.9 Headache, unspecified
CPT/HCPCS: 36415; 83690; 84439; 84443; 86140; 86364

== ENCOUNTER 2024-02-04 13:37 | Outpatient (AMB) | payer OTHER, SELFPAY ==
[2024-02-04 13:48] VITALS: BP 130/80; PULSE 97; BMI 27.0
--- NOTE | 2024-02-04 13:48 | MHC.OFFVIS ---
Intake Vital Signs 02/04/24 13:48 Height 5 ft 2 in Weight 147 lb 11.355 oz BMI 27.0 BP 130/80 Blood Pressure Location Lt brachial Position Sitting Pulse 97 Pulse Source Pulse Oximeter Intake Visit Reasons: f/u post-surgical hypothyroidism-confirmed Intake Note: Patient presents today for Hypothyroidism follow up. Freight Engineer Required: No Accompanied by: Self / Same As Patient Allergies iodine [IODINE] Allergy (Severe, Verified 02/04/24 13:54) ANAPHYLAXIS shellfish derived [SHELLFISH DERIVED] Allergy (Severe, Verified 02/04/24 13:54) ANAPHYLAXIS coconut Adverse Reaction (Unknown, Uncoded 02/04/24 13:54) sensativity Medication List - Last Reconciled 02/04/24 by Magan Bowles MD albuterol sulfate 90 mcg/actuation 2 inhalations inhalation Q6H PRN albuterol sulfate 2.5 mg (3 mL) inhalation Q6H PRN bevacizumab (Avastin) IV cholecalciferol (vitamin D3) 50 mcg PO DAILY hydrochlorothiazide 25 mg PO DAILY hyoscyamine sulfate ER 0.375 mg PO DAILY magnesium carb,citrate,oxide (Magnesium Complex) 300 mg PO DAILY methylcellulose (laxative) (Citrucel) 500 mg PO DAILY montelukast 10 mg PO QAM nebulizers use as directed every 6 hours as needed for bronchospasm sennosides (Natural Senna Laxative) 17.2 mg (2 x 8.6 mg) PO BEDTIME Synthroid (levothyroxine) 88 mcg PO DAILY NS vitamin B complex 1 cap PO DAILY HPI HPI Comments History of Present Illness Details This is a 53-year-old white female status post total thyroidectomy for compressive symptoms. She is currently on levothyroxine 88 mcg q.d. There are no symptoms of hypothyroidism hyperthyroidism PFSH Medical History Hypokalemia Post-surgical hypothyroidism Pigmented skin lesion of uncertain behavior of upper extremity Family history of osteoporosis Memory changes Disturbance, sleep Snoring Excessive daytime sleepiness Fatigue Hypothyroidism Symptomatic premature menopause Thyroid nodule greater than or equal to 1.5 cm in diameter incidentally noted on imaging study Intermittent lightheadedness Severe anemia Anxiety and depression Arthralgia of both hands Migraine Chronic rhinitis Vitamin D deficiency Recurrent sinusitis Environmental and seasonal allergies IBS (irritable bowel syndrome) Muscle contraction headache Mild intermittent asthma Early menopause Essential hypertension Hereditary hemorrhagic telangiectasia Surgical History Hx of thyroidectomy History of biopsy Hx of colonoscopy S/P correction of deviated nasal septum H/O umbilical hernia repair Hx of cholecystectomy Family History Father Prostate cancer Diabetes mellitus Hereditary hemorrhagic telangiectasia PTSD (post-traumatic stress disorder) Essential hypertension Substance use disorder Mental health disorder Mother Osteoporosis Brother Hereditary hemorrhagic telangiectasia Essential hypertension IBS (irritable bowel syndrome) Daughter Substance use disorder Mental health disorder Social History Household Members: Spouse Housing: House Alcohol intake: current Alcohol intake frequency: holidays/special occasions only Patient Tobacco Use Status: Never used Tobacco e-Cigarette/Vaping Use: Never Used service: No Current occupational status: employed 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 Reflexes 2+ DTR Assessment & Plan Assessment & Plan (1) Thyroid nodule greater than or equal to 1.5 cm in diameter incidentally noted on imaging study: Code(s): E04.1 - Nontoxic single thyroid nodule Plan: See below plan for hypothyroidism (2) Hypothyroidism: Code(s): E03.9 - Hypothyroidism, unspecified Qualifiers: Hypothyroidism type: acquired Qualified Code(s): E03.9 - Hypothyroidism, unspecified Plan: See below plan for hypothyroidism (3) Post-surgical hypothyroidism: Code(s): E89.0 - Postprocedural hypothyroidism Plan: This 51-year-old white female with history of multinodular goiter status post total thyroidectomy by and currently replaced on 100 mcg Synthroid . She appears to be clinically and biochemically euthyroid Plan is to to the current regimen. Synthroid 88 mcg samples given to patient by myself 1 box what number [id number] expiration 07/22/2024 Orders: Orders Free T4 (Free Thyroxine) 6 Months E89.0 - Postprocedural hypothyroidism Thyroid Stimulating Hormone 6 Months E89.0 - Postprocedural hypothyroidism Coding Level of Care Code Est Pt Level 3 (77510) Diagnoses Thyroid nodule greater than or equal to 1.5 cm in diameter incidentally noted on imaging study E04.1 Acquired hypothyroidism E03.9 Hypothyroidism type: acquired Post-surgical hypothyroidism E89.0
== END 2024-02-04 14:31 | disposition home or self-care (01) ==
PROVIDERS: PCP Internal Medicine; Visit Provider Internal Medicine Endocrinology, Diabetes & Metabolism
DX: E04.1 Nontoxic single thyroid nodule (principal); E03.9 Hypothyroidism, unspecified; E89.0 Postprocedural hypothyroidism
CPT/HCPCS: 99213

== ENCOUNTER → 2024-02-04 13:37 | Outpatient (BNVA) | payer OTHER, SELFPAY | PROVIDERS: PCP Internal Medicine; Visit Provider Internal Medicine Endocrinology, Diabetes & Metabolism ==

== ENCOUNTER 2024-02-05 10:26 | Outpatient (AMB) | payer OTHER, SELFPAY ==
[2024-02-05 10:53] VITALS: BP 126/70; PULSE 93; TEMP 36.1; O2SAT 97; BMI 26.5
--- NOTE | 2024-02-05 10:53 | MHC.OFFWIV ---
Intake Vital Signs 02/05/24 10:53 Height 5 ft 2 in Weight 145 lb BMI 26.5 BP 126/70 Blood Pressure Location Lt brachial Position Sitting Pulse 93 Pulse Source Pulse Oximeter Temp 97.0 F Temp Source Temporal Artery Scan Pulse Oximetry (%) 97 Oxygen Delivery Method Room Air Intake Visit Reasons: ? [place] Eye/Asthma acting up [phone] Intake Note: pt is here today for pink eye and asthma acting up started 2 days ago Patient Tobacco Use Status: Never used Tobacco Allergies iodine [IODINE] Allergy (Severe, Verified 02/05/24 11:02) ANAPHYLAXIS shellfish derived [SHELLFISH DERIVED] Allergy (Severe, Verified 02/05/24 11:02) ANAPHYLAXIS oxycodone Allergy (Mild, Verified 02/05/24 11:02) Itching Sulfa (Sulfonamide Antibiotics) Allergy (Mild, Verified 02/05/24 11:02) Diarrhea coconut Adverse Reaction (Unknown, Uncoded 02/04/24 13:54) sensativity Do you need a note to return to daycare/school/sports/work: No HPI HPI Comments History of Present Illness Details She presents with cold Son diagnosed Saturday with bacterial conjunctivitis Pt now has ST, swollen glands, eye symptoms She said L eye crusted this am + lost voice this am + glasses but no contacts No fever but + chills (menopause) + post nasal drip and congestion + sinus pressure near eyes She has HHT so sometimes has sinus pressure She denies ear pain + cough without CP or SOB + some wheeze, has inhaler but has not used yet She has not taken nedicine for it PFSH Medical History Hypokalemia Post-surgical hypothyroidism Pigmented skin lesion of uncertain behavior of upper extremity Family history of osteoporosis Memory changes Disturbance, sleep Snoring Excessive daytime sleepiness Fatigue Hypothyroidism Symptomatic premature menopause Thyroid nodule greater than or equal to 1.5 cm in diameter incidentally noted on imaging study Intermittent lightheadedness Severe anemia Anxiety and depression Arthralgia of both hands Migraine Chronic rhinitis Vitamin D deficiency Recurrent sinusitis Environmental and seasonal allergies IBS (irritable bowel syndrome) Muscle contraction headache Mild intermittent asthma Early menopause Essential hypertension Hereditary hemorrhagic telangiectasia Surgical History Hx of thyroidectomy History of biopsy Hx of colonoscopy S/P correction of deviated nasal septum H/O umbilical hernia repair Hx of cholecystectomy Family History Father Prostate cancer Diabetes mellitus Hereditary hemorrhagic telangiectasia PTSD (post-traumatic stress disorder) Essential hypertension Substance use disorder Mental health disorder Mother Osteoporosis Brother Hereditary hemorrhagic telangiectasia Essential hypertension IBS (irritable bowel syndrome) Daughter Substance use disorder Mental health disorder Social History Household Members: Spouse Housing: House Alcohol intake: current Alcohol intake frequency: holidays/special occasions only Patient Tobacco Use Status: Never used Tobacco e-Cigarette/Vaping Use: Never Used service: No Current occupational status: employed 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 identity: Female Cognitive needs: No Hearing needs: No Vision needs: Yes Female Reproductive History Menstrual Age of Menarche: 11 Review of Systems Const Denies body aches, Reports chills, Denies fatigue and Denies fever(s) Eyes Denies blurry vision, Denies exophthalmos, Denies diplopia, Reports eye discharge and Reports irritation ENT Denies otalgia, Reports nasal discharge, Reports sore throat and Denies throat swelling Card Denies chest pain and Denies dyspnea Resp Reports cough, Denies dyspnea and Reports wheezing Endo Denies fatigue Aller/Immun Denies throat swelling and Reports wheezing Physical Exam Vital Signs: Last Vital Signs Temp 97.0 F 02/05/24 10:53 Pulse 93 02/05/24 10:53 BP 126/70 02/05/24 10:53 Pulse Ox 97 02/05/24 10:53 Oxygen Delivery Method Room Air 02/05/24 10:53 BMI result Body Mass Index 26.5 General: Non-toxic, NAD. Speaking full sentences. Skin: Warm dry throughout Eye: EOMI, PERRL. No FB uner eyelids. Minimal L conjunctival erythema. No discharge noted. HENT: Airway patent. Uvula midline. No pharyngeal erythema or edema. No LINOLEUM LAYER HELPER. Bilateral canals clear. TM non-erythematous, non-bulging. No TM perforation or hemotympanum noted. Respiratory: CTA bilaterally. No wheezes, rales or rhonchi Cardiac: RRR. No murmur MSK: Full ROM extremities. Neurology: A/O. No aphasia or facial droop. Gait without abnormality Psych: Good mood and affect Assessment & Plan Assessment & Plan (1) Bacterial conjunctivitis: Code(s): H10.9 - Unspecified conjunctivitis Plan: Wash hands Drops as prescribed Has contact so will tx with antibiotics (2) Upper respiratory tract infection: Code(s): J06.9 - Acute upper respiratory infection, unspecified Qualifiers: URI type: unspecified viral URI Qualified Code(s): J06.9 - Acute upper respiratory infection, unspecified Plan: Lungs CTA No sign of bacterial sinusitis Increase fluids/rest F/U with PCP if not improved x 1 week Call with concerns Medications: New ofloxacin 0.3% 1 drp ophthalmic (eye) QID 1 week 10 mL 0RF Coding Level of Care Code Est Pt Level 3 (76650) Diagnoses Bacterial conjunctivitis H10.9 Viral upper respiratory tract infection J06.9 URI type: unspecified viral URI
== END 2024-02-05 11:37 | disposition home or self-care (01) ==
PROVIDERS: PCP Internal Medicine; Visit Provider Physician Assistant
DX: H10.9 Unspecified conjunctivitis (principal); J06.9 Acute upper respiratory infection, unspecified
CPT/HCPCS: 99213

== ENCOUNTER 2024-02-29 09:24 | Outpatient (AMB) | payer OTHER, SELFPAY ==
--- NOTE | 2024-02-29 11:28 | MHC.OFFWIV ---
Intake Vital Signs 02/29/24 11:31 Height 5 ft 2 in Weight 146 lb BMI 26.7 BP 120/68 Blood Pressure Location Lt brachial Position Sitting Pulse 82 Pulse Source Pulse Oximeter Temp 97.6 F Temp Source Oral Pulse Oximetry (%) 98 Oxygen Delivery Method Room Air Intake Visit Reasons: EP ?Sinus infection Intake Note: Patient is here with sinus infection. Patient Tobacco Use Status: Never used Tobacco Allergies iodine [IODINE] Allergy (Severe, Verified 02/29/24 11:33) ANAPHYLAXIS shellfish derived [SHELLFISH DERIVED] Allergy (Severe, Verified 02/29/24 11:33) ANAPHYLAXIS oxycodone Allergy (Mild, Verified 02/29/24 11:33) Itching Sulfa (Sulfonamide Antibiotics) Allergy (Mild, Verified 02/29/24 11:33) Diarrhea coconut Adverse Reaction (Unknown, Uncoded 02/29/24 11:33) sensativity Medication List - Last Reconciled 02/29/24 by Phan Luevano MD albuterol sulfate 90 mcg/actuation 2 inhalations inhalation Q6H PRN albuterol sulfate 2.5 mg (3 mL) inhalation Q6H PRN bevacizumab (Avastin) IV cholecalciferol (vitamin D3) 50 mcg PO DAILY hydrochlorothiazide 25 mg PO DAILY hyoscyamine sulfate ER 0.375 mg PO DAILY levothyroxine 88 mcg PO DAILY magnesium carb,citrate,oxide (Magnesium Complex) 300 mg PO DAILY methylcellulose (laxative) (Citrucel) 500 mg PO DAILY montelukast 10 mg PO QAM nebulizers use as directed every 6 hours as needed for bronchospasm ofloxacin 0.3% 1 drp ophthalmic (eye) QID 1 week sennosides (Natural Senna Laxative) 17.2 mg (2 x 8.6 mg) PO BEDTIME vitamin B complex 1 cap PO DAILY Do you need a note to return to daycare/school/sports/work: No HPI EP ?Sinus infection HPI Details Sinus pain and pressure which is worsening for the past 5 days. Mild fevers/chills Sore throat and mild ear pressure bilaterally. Minimal cough PFSH Medical History Hypokalemia Post-surgical hypothyroidism Pigmented skin lesion of uncertain behavior of upper extremity Family history of osteoporosis Memory changes Disturbance, sleep Snoring Excessive daytime sleepiness Fatigue Hypothyroidism Symptomatic premature menopause Thyroid nodule greater than or equal to 1.5 cm in diameter incidentally noted on imaging study Intermittent lightheadedness Severe anemia Anxiety and depression Arthralgia of both hands Migraine Chronic rhinitis Vitamin D deficiency Recurrent sinusitis Environmental and seasonal allergies IBS (irritable bowel syndrome) Muscle contraction headache Mild intermittent asthma Early menopause Essential hypertension Hereditary hemorrhagic telangiectasia Surgical History Hx of thyroidectomy History of biopsy Hx of colonoscopy S/P correction of deviated nasal septum H/O umbilical hernia repair Hx of cholecystectomy Family History Father Prostate cancer Diabetes mellitus Hereditary hemorrhagic telangiectasia PTSD (post-traumatic stress disorder) Essential hypertension Substance use disorder Mental health disorder Mother Osteoporosis Brother Hereditary hemorrhagic telangiectasia Essential hypertension IBS (irritable bowel syndrome) Daughter Substance use disorder Mental health disorder Social History Household Members: Spouse Housing: House Alcohol intake: current Alcohol intake frequency: holidays/special occasions only Patient Tobacco Use Status: Never used Tobacco e-Cigarette/Vaping Use: Never Used service: No Current occupational status: employed 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 identity: Female Cognitive needs: No Hearing needs: No Vision needs: Yes Female Reproductive History Menstrual Age of Menarche: 11 Review of Systems Const Details: See HPI Reports chills, Denies fatigue, Reports fever(s), Reports headache(s) and Denies weakness ENT Denies dizziness and Reports headache(s) Card Denies chest pain, Denies lightheadedness, Denies dyspnea and Denies other (Palpitations) Resp Denies cough, Denies dyspnea, Denies wheezing and Denies other ( shortness of breath) Musc Denies numbness and Denies tingling Neuro Denies dizziness, Reports headache(s), Denies numbness, Denies tingling, Denies paresthesias and Denies weakness Psych Denies anxiety and Denies depression Endo Denies fatigue Aller/Immun Denies wheezing Physical Exam Vital Signs: Last Vital Signs Temp 97.6 F 02/29/24 11:31 Pulse 82 02/29/24 11:31 BP 120/68 02/29/24 11:31 Pulse Ox 98 02/29/24 11:31 Oxygen Delivery Method Room Air 02/29/24 11:31 BMI result Body Mass Index 26.7 Const Other: Appears mildly ill General: no acute distress and well developed Nutritional Appearance: well nourished Orientation/consciousness: patient oriented x3 HEENT Other: Pain and pressure bilateral frontal and maxillary sinuses. Severe nasal congestion with mild blood and purulent discharge TMs mildly erythematous but no purulent material or distention Mild erythema of throat but no patchy exudates. Head: Yes normocephalic and Yes atraumatic Eyes General: appearance normal, both eyes and all related structures Pupils: Equal, round and reactive pupils present EOM: EOMs intact bilaterally Resp Effort & Inspection: normal respiratory effort Auscultation: clear to auscultation bilaterally Cardio Rate: regular rate Rhythm: regular rhythm Heart sounds: S1 normal heart sound present, S2 normal heart sound present, no gallops, no murmurs and no rubs Neuro General: patient oriented x3 and gait normal Cranial nerves: Yes Equal, round and reactive pupils present Psych Affect: normal affect Results AMB Rapid Strep AMB Rapid Strep Negative Last Edit by India Hale CMA on 02/29/24 11:47 Results Reviewed Results Reviewed: Laboratory Last Values Strep Scn [facility] Negative 02/29/24 11:46 Assessment & Plan Assessment & Plan (1) Sinusitis: Code(s): J32.9 - Chronic sinusitis, unspecified Qualifiers: Sinusitis location: frontal Chronicity: chronic Qualified Code(s): J32.1 - Chronic frontal sinusitis Plan: Start Augmentin b.i.d. times 10 days Warm compresses to face Nasal saline Ibuprofen for aches pains or fevers Orders: Orders AMB Rapid Strep Screen Today J02.9 - Acute pharyngitis, unspecified Medications: New amoxicillin-pot clavulanate 500-125 mg (Augmentin) 1 tab PO Q12H 10 days 20 tabs 0RF Coding Level of Care Code Est Pt Level 3 (29878) Diagnoses Chronic frontal sinusitis J32.1 Sinusitis location: frontal Chronicity: chronic
[2024-02-29 11:31] VITALS: BP 120/68; PULSE 82; TEMP 36.4; O2SAT 98; BMI 26.7
== END 2024-02-29 13:16 | disposition home or self-care (01) ==
PROVIDERS: PCP Internal Medicine; Visit Provider Family Medicine
DX: J02.9 Acute pharyngitis, unspecified (principal); J32.1 Chronic frontal sinusitis
CPT/HCPCS: 87880; 99051; 99213

== ENCOUNTER 2024-03-21 08:47 | Outpatient (REF) | payer OTHER, SELFPAY | END 2024-03-21 08:48 | disposition home or self-care (01) | LOC: HO.MAMMO 08:47 | PROVIDERS: PCP Internal Medicine; Visit Provider Internal Medicine | DX: Z12.31 Encounter for screening mammogram for malignant neoplasm of breast (principal) | CPT/HCPCS: 77063; 77067 ==

== ENCOUNTER → 2024-03-21 09:00 | Outpatient (BNV) | payer OTHER, SELFPAY | PROVIDERS: PCP Internal Medicine; Visit Provider Radiology Diagnostic Radiology | DX: Z12.31 Encounter for screening mammogram for malignant neoplasm of breast (principal) | CPT/HCPCS: 77063; 77067 ==

== ENCOUNTER 2024-03-25 09:57 | Outpatient (AMB) | payer OTHER, SELFPAY ==
--- NOTE | 2024-03-25 10:01 | MHC.OFFVIS ---
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 Intake Note: skin tag concerns Stenographer Secretary Required: No Information Interpreted: non-clinical & clinical Senior Project Manager: Senior Project Manager Present (Maria) Allergies iodine [IODINE] Allergy (Severe, Verified 03/25/24 10:05) ANAPHYLAXIS shellfish derived [SHELLFISH DERIVED] Allergy (Severe, Verified 03/25/24 10:05) ANAPHYLAXIS oxycodone Allergy (Mild, Verified 03/25/24 10:05) Itching Sulfa (Sulfonamide Antibiotics) Allergy (Mild, Verified 03/25/24 10:05) Diarrhea coconut Adverse Reaction (Unknown, Uncoded 03/25/24 10:05) sensativity Is last menstrual period known: No Post menopausal: Yes Patient : No HPI Comments Details: She is a postmenopausal woman 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 She is doing well with no concerns. History of HHT, currently in a trial study at [facility] receiving infusions, overall doing well in the study. Attempting to eat a healthy diet with calcium and vitamin D and stays active with exercise. Currently occasionally sexually active, reports vaginal discomfort, odor after intimacy. Has used lubricants in the past, not very helpful started Replens but did not use it very long. STI testing offered; she declines. Last pap smear; 2019. Last mammogram; pending report. Colonoscopy is UTD. Denies any family history of breast, ovarian or colon cancer. [facility] Medical History Hypokalemia Post-surgical hypothyroidism Pigmented skin lesion of uncertain behavior of upper extremity Family history of osteoporosis Memory changes Disturbance, sleep Snoring Excessive daytime sleepiness Fatigue Hypothyroidism Symptomatic premature menopause Thyroid nodule greater than or equal to 1.5 cm in diameter incidentally noted on imaging study Intermittent lightheadedness Severe anemia Anxiety and depression Arthralgia of both hands Migraine Chronic rhinitis Vitamin D deficiency Recurrent sinusitis Environmental and seasonal allergies IBS (irritable bowel syndrome) Muscle contraction headache Mild intermittent asthma Early menopause Essential hypertension Hereditary hemorrhagic telangiectasia Surgical History Hx of thyroidectomy History of biopsy Hx of colonoscopy S/P correction of deviated nasal septum H/O umbilical hernia repair Hx of cholecystectomy Family History Father Prostate cancer Diabetes mellitus Hereditary hemorrhagic telangiectasia PTSD (post-traumatic stress disorder) Essential hypertension Substance use disorder Mental health disorder Mother Osteoporosis Brother Hereditary hemorrhagic telangiectasia Essential hypertension IBS (irritable bowel syndrome) Daughter Substance use disorder Mental health disorder Social History Household Members: Spouse Housing: House Alcohol intake: current Alcohol intake frequency: holidays/special occasions only Patient Tobacco Use Status: Never used Tobacco e-Cigarette/Vaping Use: Never Used service: No Current occupational status: employed 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 identity: Female Cognitive needs: No Hearing needs: No Vision needs: Yes Female Reproductive History Menstrual Age of Menarche: 11 control method: none Total pregnancies: 5 Full term: 2 Number of Living Children: 2 Ab spontaneous: 3 Date of last pap smear: 03/20/19 (negative) History of abnormal pap smear: Yes Date of Mammogram: 03/21/24 Review of Systems Const All systems reviewed & are unremarkable except as noted in HPI and below Reports as per HPI Eyes Reports no additional complaints ENT Reports no additional complaints Card Reports no additional complaints Resp Reports no additional complaints GI Reports as per HPI and Reports no additional complaints Reports as per HPI Musc Reports no additional complaints Skin/Breast Reports as per HPI Neuro Reports no additional complaints Psych Reports no additional complaints Endo Reports no additional complaints Ankit/Lymph Reports no additional complaints Aller/Immun Reports no additional complaints Physical Exam Vital Signs: Last Vital Signs BP 114/82 03/25/24 10:02 BMI result Body Mass Index 26.7 Const General: cooperative, healthy appearing, no acute distress, well developed and alert Orientation/consciousness: patient oriented x3 HEENT Head: Yes normal to inspection Eyes General: appearance normal, both eyes and all related structures Neck Neck: Yes normal visual inspection Thyroid: Thyroid normal Chest Chest palpation & inspection: normal inspection of the chest and other (no puckering, dimpling, peau de orange, retraction, discharge, masses) Breast/axilla inspection: normal inspection of the breasts Breast/axilla palpation: normal palpation of the breasts Resp Effort & Inspection: normal respiratory effort GI Inspection: Yes normal to inspection Palpation (GI): Soft to palpation Rectal Exam - Female: deferred General: Yes bladder normal to palpation External Female Exam: normal external appearance and normal appearance of the urethra Speculum Exam - Vagina: normal appearance of the vagina, normal palpation and normal vaginal discharge Speculum Exam - Cervix: normal appearance of the cervix, normal palpation and Other cervical findings present (Bled very slightly from Pap) Bimanual exam- vagina & uterus: normal bimanual exam, normal palpation, uterine size normal, bladder normal to palpation, normal palpation and non-tender Bimanual Exam- Adnexa, other: Adnexal mass present on the right non-tender and soft Skin General skin exam: no rashes or lesions noted Rashes: no rashes Neuro General: patient oriented x3 Cognition (Neuro): normal cognition Extrem General: Yes normal to inspection Psych Attitude: cooperative Thought process: Normal thought process present Assessment & Plan Assessment & Plan (1) Encounter for well woman exam with routine gynecological exam: Code(s): Z01.419 - Encounter for gynecological examination (general) (routine) without abnormal findings Category: Medical (2) Adnexal fullness: Code(s): N94.9 - Unspecified condition associated with female genital organs and menstrual cycle (3) Vaginal odor: Code(s): N89.8 - Other specified noninflammatory disorders of vagina Plan Discussed: Current recommendations for pap smears per ASCCP guidelines. Pap screening today, and BV panel added due to vaginal odor. Breast awareness, periodic self breast exams and yearly mammogram. Maintain a healthy lifestyle, well balanced diet including Calcium 1,200 mg and Vitamin D 600 IU daily, and routine exercise. Replens moisturizer, instructions reviewed encouraged to try up to 12 weeks to see if benefits, can use a lubricant and can in between applications. Pelvic ultrasound for adnexal fullness, then follow up in person for plan of care. Call sooner if there is any concerns. Contact the office with any postmenopausal bleeding. Patient verbalizes understanding and agrees to the plan of care. She was given opportunity to ask questions and all questions were answered to the best of my ability. RTO in 1 year for annual service promoter salesperson exam. This note is constructed using voice recognition software. While every effort has been made to ensure accuracy, senior java software engineer errors may have been included. Orders: Orders US pelvic and transvaginal Today N94.9 - Unspecified condition associated with female genital organs and menstrual cycle Bacterial Vaginosis Panel Today N89.8 - Other specified noninflammatory disorders of vagina Pap Smear Today Z12.4 - Encounter for screening for malignant neoplasm of cervix Coding Level of Care Code Est Pt Prev Care 40-64y(13838) Diagnoses Encounter for well woman exam with routine gynecological exam Z01.419 Adnexal fullness N94.9 Vaginal odor N89.8
[2024-03-25 10:02] VITALS: BP 114/82; BMI 26.7
== END 2024-03-25 10:50 | disposition home or self-care (01) ==
PROVIDERS: PCP Internal Medicine; Visit Provider Advanced Practice Midwife
DX: Z01.419 Encounter for gynecological examination (general) (routine) without abnormal findings (principal); N94.9 Unspecified condition associated with female genital organs and menstrual cycle; N89.8 Other specified noninflammatory disorders of vagina
CPT/HCPCS: 99396

== ENCOUNTER 2024-03-25 09:57 | Outpatient (REF) | payer OTHER, SELFPAY ==
[2024-03-25 17:28] LABS: Bacterial Vaginosis PCR NEGATIVE (Negative); Candida Group PCR NOT DETECTED (Not Detect); Candida glab krusei PCR NOT DETECTED (Not Detect); Trichomonas vaginalis PCR NOT DETECTED (Not Detect)
[2024-03-31 12:49] LABS: HPV mRNA E6/E7 rflx Not Detected (Not Detected)
== END 2024-03-25 09:58 | disposition home or self-care (01) ==
LOC: HO.LNP 09:57
PROVIDERS: PCP Internal Medicine; Visit Provider Advanced Practice Midwife
DX: Z01.419 Encounter for gynecological examination (general) (routine) without abnormal findings (principal); Z11.51 Encounter for screening for human papillomavirus (HPV); N94.9 Unspecified condition associated with female genital organs and menstrual cycle; N89.8 Other specified noninflammatory disorders of vagina
CPT/HCPCS: 0352U; 87624; 88142

== ENCOUNTER 2024-04-01 13:49 | Outpatient (AMB) | payer OTHER, SELFPAY ==
--- NOTE | 2024-04-01 14:05 | MHC.OFFVIS ---
Vital Signs 04/01/24 14:07 Height 5 ft 2 in Weight 146 lb BMI 26.7 BP 124/80 Blood Pressure Location Lt brachial Position Sitting Pulse 86 Intake Visit Reasons: 3 month follow up Intake Note: Patient follow up from constipation and lab/US abdomen results Patient cc: Abdominal pain/bloating and some acid reflex. Jack Spooler Tender Required: No Accompanied by: Self / Same As Patient Allergies iodine [IODINE] Allergy (Severe, Verified 04/01/24 14:02) ANAPHYLAXIS shellfish derived [SHELLFISH DERIVED] Allergy (Severe, Verified 04/01/24 14:02) ANAPHYLAXIS oxycodone Allergy (Mild, Verified 04/01/24 14:02) Itching Sulfa (Sulfonamide Antibiotics) Allergy (Mild, Verified 04/01/24 14:02) Diarrhea coconut Adverse Reaction (Unknown, Uncoded 03/25/24 10:05) sensativity HPI HPI 3 month follow up: Details: LAST VISIT: GERD (gastroesophageal reflux disease) Constipation IBS (irritable bowel syndrome) Nausea Postprandial abdominal bloating Plan Continue lansoprazole. Will have patient take sucralfate at bedtime only. Patient was encouraged to avoid dietary triggers and late night snacking. Staying upright for minimum 3 hours after meals discussed with patient. Patient was encouraged to take Linzess in the morning instead of at night time. Patient was encouraged to drink plenty fluids throughout the day. Increase activity to promote better bowel motility. Will increase Linzess to 290 mcg daily. She can continue taking Colace at bedtime. I will see patient in 4 months, sooner on as needed basis. Patient is agreeable to this plan and verbalizes understanding of instructions. She was given the opportunity to ask questions and all questions answered. ? Thank you for allowing me to participate in her care Medications New linaclotide (Linzess) 290 mcg PO QAM 30 caps 4RF K59.00 Changed Changed From sucralfate 1 g PO BID 180 tabs 3RF Changed To sucralfate 1 g PO BEDTIME 90 tabs 3RF Refilled lansoprazole 30 mg PO DAILY 90 caps 3RF K21.9 Discontinued linaclotide (Linzess) Discontinued Reason: Doctor's Order 145 mcg PO DAILY 30 caps 2RF TODAY'S VISIT Patient is here today for follow-up. Patient reports that she has been doing better, however occasionally she still have abdominal bloating postprandially. Patient denies melena, hematochezia, unintentional weight loss or ribbon like stools. Denies any dyspepsia, dysphagia or odynophagia occasional acid reflux. Patient has been following in [facility] and reports that right now she has less nosebleeds. [facility] Medical History Hypokalemia Post-surgical hypothyroidism Pigmented skin lesion of uncertain behavior of upper extremity Family history of osteoporosis Memory changes Disturbance, sleep Snoring Excessive daytime sleepiness Fatigue Hypothyroidism Symptomatic premature menopause Thyroid nodule greater than or equal to 1.5 cm in diameter incidentally noted on imaging study Intermittent lightheadedness Severe anemia Anxiety and depression Arthralgia of both hands Migraine Chronic rhinitis Vitamin D deficiency Recurrent sinusitis Environmental and seasonal allergies IBS (irritable bowel syndrome) Muscle contraction headache Mild intermittent asthma Early menopause Essential hypertension Hereditary hemorrhagic telangiectasia Surgical History Hx of thyroidectomy History of biopsy Hx of colonoscopy S/P correction of deviated nasal septum H/O umbilical hernia repair Hx of cholecystectomy Family History Father Prostate cancer Diabetes mellitus Hereditary hemorrhagic telangiectasia PTSD (post-traumatic stress disorder) Essential hypertension Substance use disorder Mental health disorder Mother Osteoporosis Brother Hereditary hemorrhagic telangiectasia Essential hypertension IBS (irritable bowel syndrome) Daughter Substance use disorder Mental health disorder Social History Household Members: Spouse Housing: House Alcohol intake: current Alcohol intake frequency: holidays/special occasions only Patient Tobacco Use Status: Never used Tobacco e-Cigarette/Vaping Use: Never Used service: No Current occupational status: employed 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 Gender identity: Female Cognitive needs: No Hearing needs: No Vision needs: Yes Female Reproductive History Menstrual Age of Menarche: 11 Review of Systems Const Denies weight gain and Denies weight loss ENT Reports no additional complaints, Denies dysphagia and Denies odynophagia Card Reports no additional complaints Resp Reports no additional complaints GI Denies abdominal pain, Denies belching, Denies melena, Reports bloating, Denies change in bowel habits, Reports constipation, Denies dysphagia, Denies excessive flatus, Denies dyspepsia, Reports heartburn, Denies diarrhea, Denies loose stools, Denies nausea, Denies odynophagia and Denies vomiting Reports no additional complaints Musc Reports no additional complaints Neuro Reports no additional complaints Psych Reports no additional complaints Endo Reports no additional complaints Physical Exam Vital Signs: Last Vital Signs Pulse 86 04/01/24 14:07 BP 124/80 04/01/24 14:07 BMI result Body Mass Index 26.7 Const General: healthy appearing, no acute distress and well developed Nutritional Appearance: well nourished Orientation/consciousness: patient oriented x3 Resp Effort & Inspection: normal respiratory effort, able to speak in complete sentences, no tracheal deviation and symmetric chest movement Auscultation: clear to auscultation bilaterally Cardio Rate: regular rate GI Inspection: Yes normal to inspection and No distended Palpation (GI): Soft to palpation, not firm, nontender and No hepatosplenomegaly present Auscultation: normal bowel sounds General: Yes no CVA tenderness Back/Spine/Pelvis Back: no CVA tenderness Skin General skin exam: elasticity normal, turgor normal and dry skin Neuro General: patient oriented x3 Psych Appearance: grossly normal Mental Status: mental status grossly normal Assessment & Plan Assessment & Plan (1) Liver cyst: Code(s): K76.89 - Other specified diseases of liver (2) Hereditary hemorrhagic telangiectasia: Code(s): I78.0 - Hereditary hemorrhagic telangiectasia Category: Medical (3) IBS (irritable bowel syndrome): Code(s): K58.9 - Irritable bowel syndrome without diarrhea Category: Medical Qualifiers: Irritable bowel syndrome type: with both diarrhea and constipation Qualified Code(s): K58.2 - Mixed irritable bowel syndrome (4) Postprandial abdominal bloating: Code(s): R14.0 - Abdominal distension (gaseous) (5) Constipation: Code(s): K59.00 - Constipation, unspecified Qualifiers: Constipation type: slow transit constipation Qualified Code(s): K59.01 - Slow transit constipation Plan Limited ultrasound to evaluate the liver to evaluate hepatic cysts. Most likely hemangioma. Continue avoiding dietary triggers and late night snacking. Staying upright for minimum 3 hours after meals discussed with patient. Continue low FODMAP diet. Return in the office in 5 months, sooner on as needed basis. She is agreeable to this plan and verbalizes understanding of instructions. She was given the opportunity to ask questions and all questions answered. Thank you for allowing me to participate in her care Orders: Orders US abdomen limited 07/16/24 K76.89 - Other specified diseases of liver Coding Level of Care Code Est Pt Level 3 (05551) Diagnoses Liver cyst K76.89 Hereditary hemorrhagic telangiectasia I78.0 Irritable bowel syndrome with both constipation and diarrhea K58.2 Irritable bowel syndrome type: with both diarrhea and constipation Postprandial abdominal bloating R14.0 Slow transit constipation K59.01 Constipation type: slow transit constipation Time Spent (min) 30 Comment 20 minutes spent with patient and additional 10 minutes spent reviewing her records
[2024-04-01 14:07] VITALS: BP 124/80; PULSE 86; BMI 26.7
== END 2024-04-01 14:40 | disposition home or self-care (01) ==
LOC: HO.HGI 13:49
PROVIDERS: PCP Internal Medicine; Visit Provider Nurse Practitioner Family
DX: K76.89 Other specified diseases of liver (principal); I78.0 Hereditary hemorrhagic telangiectasia; K58.2 Mixed irritable bowel syndrome; R14.0 Abdominal distension (gaseous); K59.01 Slow transit constipation
CPT/HCPCS: 99213

== ENCOUNTER → 2024-04-01 13:49 | Outpatient (BNVA) | payer OTHER, SELFPAY | PROVIDERS: PCP Internal Medicine; Visit Provider Nurse Practitioner Family ==

== ENCOUNTER 2024-04-02 13:48 | Outpatient (REF) | payer OTHER, SELFPAY ==
--- NOTE | ~2024-04-02 | US_ITS ---
EXAMINATION: US PELVIS CLINICAL INFORMATION: Adnexal fullness. COMPARISON: None available. TECHNIQUE: Ultrasound of the pelvis is performed using both transabdominal and transvaginal transducers along with Doppler. Transvaginal imaging is performed due to inadequate visualization transabdominally. FINDINGS: Uterus: The uterus is anteverted and anteflexed. The uterus measures 5.4 x 2.5 x 3.1 cm. The double wall endometrial thickness is 0.1 mm. The uterus is smooth in contour and has normal myometrial echogenicity. No visible fibroid. Adnexa: Both ovaries are visualized. There is normal color flow to the adnexa. There is no ovarian torsion. There is no pelvic ascites or fluid collection. Right ovary measures 0.8 x 1.2 x 1.7 cm, volume 0.8 mL. Left ovary measures 1.6 x 0.9 x 1.3 cm, volume 0.9 mL. US/US pelvic and transvaginal IMPRESSION: Unremarkable examination.
== END 2024-04-02 13:49 | disposition home or self-care (01) ==
LOC: HO.HMGCX 13:48
PROVIDERS: PCP Internal Medicine; Visit Provider Advanced Practice Midwife
DX: N94.9 Unspecified condition associated with female genital organs and menstrual cycle (principal)
CPT/HCPCS: 76830; 76856

== ENCOUNTER 2024-05-12 12:55 | Outpatient (AMB) | payer OTHER, SELFPAY ==
[2024-05-12 13:04] VITALS: BP 110/88; PULSE 94; O2SAT 98; BMI 26.3
--- NOTE | 2024-05-12 13:04 | MHC.PC.OV ---
Vital Signs 05/12/24 13:04 Height 5 ft 2 in Weight 144 lb BMI 26.3 BP 110/88 Blood Pressure Location Rt brachial Position Sitting Pulse 94 Pulse Source Pulse Oximeter Pulse Oximetry (%) 98 Oxygen Delivery Method Room Air Intake Visit Reasons: Headache(neuro referral) Intake Note: Pt is here today f/u headache Allergies iodine [IODINE] Allergy (Severe, Verified 05/13/24 00:57) ANAPHYLAXIS shellfish derived [SHELLFISH DERIVED] Allergy (Severe, Verified 05/13/24 00:57) ANAPHYLAXIS oxycodone Allergy (Mild, Verified 05/13/24 00:57) Itching Sulfa (Sulfonamide Antibiotics) Allergy (Mild, Verified 05/13/24 00:57) Diarrhea coconut Adverse Reaction (Unknown, Uncoded 05/13/24 00:57) sensativity Medication List - Last Reconciled 05/12/24 by Yasmin Castillo MD albuterol sulfate 90 mcg/actuation 2 inhalations inhalation Q6H PRN albuterol sulfate 2.5 mg (3 mL) inhalation Q6H PRN bevacizumab (Avastin) IV Q4W cholecalciferol (vitamin D3) 50 mcg PO DAILY hydrochlorothiazide 25 mg PO DAILY hyoscyamine sulfate ER 0.375 mg PO DAILY magnesium carb,citrate,oxide (Magnesium Complex) 300 mg PO DAILY methylcellulose (laxative) (Citrucel) 500 mg PO DAILY montelukast 10 mg PO QAM nebulizers use as directed every 6 hours as needed for bronchospasm sennosides (Natural Senna Laxative) 17.2 mg (2 x 8.6 mg) PO BEDTIME Synthroid (levothyroxine) 88 mcg PO DAILY NS vitamin B complex 1 cap PO DAILY Tobacco use date assessed: 05/12/24 Dental Screening Dental Screen Date: 05/12/24 Did you have a dental visit in the last 12 months?: Yes Did you have a dental problem in the last 6 months where you did not have access to dental care?: No Was dental information given to patient?: Patient has dentist HPI Headache(neuro referral) HPI Details 53-year-old lady here today complaining of pain in posterior neck area, radiating to top of head. This has been ongoing now for the last several weeks and gets worse towards the end of the day. Has been taking Tylenol which affords only temporary relief. Has tried massages which has not been helping. A CT of the head done February 01 did not show any abnormality. He also had an a CT angiogram of her brain in 2019 which did not show any evidence of aneurysm or AV malformation. States that she has been in trouble with the computer all day as she has been working from home and this seems to have aggravated above symptoms. Is also complaining of pain on medial aspect of left knee joint. Hurts to go up and down stairs, difficulty and pain with squatting. Has only been taking Tylenol and massaging [id number] arthritis cream to affected joint which has not afforded much improvement. [facility] Medical History (Updated 05/13/24 @ 01:11 by Yasmin Castillo MD) Left medial knee pain Lumbago Post-surgical hypothyroidism Fatigue Hypothyroidism Symptomatic premature menopause Thyroid nodule greater than or equal to 1.5 cm in diameter incidentally noted on imaging study Intermittent lightheadedness Anxiety and depression Arthralgia of both hands Migraine Chronic rhinitis Vitamin D deficiency Recurrent sinusitis Environmental and seasonal allergies IBS (irritable bowel syndrome) Mild intermittent asthma Essential hypertension Hereditary hemorrhagic telangiectasia Surgical History Hx of thyroidectomy History of biopsy Hx of colonoscopy S/P correction of deviated nasal septum H/O umbilical hernia repair Hx of cholecystectomy Family History Father Prostate cancer Diabetes mellitus Hereditary hemorrhagic telangiectasia PTSD (post-traumatic stress disorder) Essential hypertension Substance use disorder Mental health disorder Mother Osteoporosis Brother Hereditary hemorrhagic telangiectasia Essential hypertension IBS (irritable bowel syndrome) Daughter Substance use disorder Mental health disorder Social History Household Members: Spouse Housing: House Alcohol intake: current Alcohol intake frequency: holidays/special occasions only Patient Tobacco Use Status: Never used Tobacco e-Cigarette/Vaping Use: Never Used service: No Current occupational status: employed 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 Magan LEvita Bonilla, Holger Cabrera and colleagues, with an educational matt from [employer]. Review of Systems Const Reports no additional complaints Eyes Reports no additional complaints ENT Reports no additional complaints and Reports epistaxis (Has lessened in recurrence , maybe just once a week) Card Reports no additional complaints Resp Reports no additional complaints GI Denies abdominal pain, Denies belching, Denies melena, Denies change in bowel habits and Reports heartburn Reports no additional complaints Musc Reports as per HPI Skin/Breast Denies rash Neuro Reports no additional complaints and Denies Sensory deficit (Neuro) Endo Reports no additional complaints Ankit/Lymph Reports no additional complaints Physical exam (Primary Care) Vital Signs: Last Vital Signs Pulse 94 05/12/24 13:04 BP 110/88 05/12/24 13:04 Pulse Ox 98 05/12/24 13:04 Oxygen Delivery Method Room Air 05/12/24 13:04 BMI result Body Mass Index 26.3 Tobacco/Smoking Status: Tobacco use Status Tobacco use date assessed 05/12/24 05/12/24 13:08 Patient Tobacco Use Status Never used Tobacco 05/12/24 13:08 e-Cigarette/Vaping Use Never Used 05/12/24 13:08 Thrive Assessment: Date of Thrive Assessment Date Thrive assessed 12/18/23 05/12/24 13:08 Const General: no acute distress and alert Orientation/consciousness: patient oriented x3 HENMT Ears: external ears normal General nose exam: Normal external nose present Face and sinus: Yes face symmetric Mouth: oropharynx normal and moist mucous membranes Eyes General: appearance normal, both eyes and all related structures Neck Other: Tender to palpation over posterior neck and bilateral trapezius, with a bony prominence on lower end of cervical spine, tender to palpation Neck: Yes full ROM Lymphatic: no lymphadenopathy noted Resp Effort & Inspection: normal respiratory effort and able to speak in complete sentences Auscultation: clear to auscultation bilaterally Cardio Rate: regular rate Rhythm: regular rhythm Heart sounds: S1 normal heart sound present and S2 normal heart sound present GI Palpation (GI): Soft to palpation, nontender and no masses Auscultation: normal bowel sounds General: Yes no CVA tenderness Back/Spine/Pelvis Back: no CVA tenderness and No back tenderness Skin General skin exam: no rashes or lesions noted Neuro General: patient oriented x3, gait normal, tone normal, moves all extremities, Normal light touch and pain sensation and no focal motor deficits Sensory Exam: No Sensory deficit (Neuro) Extrem General: Yes full ROM, Yes no joint enlargement, Yes no clubbing, cyanosis or edema, Yes no calf tenderness and Yes normal gait Assessment and Plan Assessment & Plan (1) Bilateral posterior neck pain: Code(s): M54.2 - Cervicalgia Plan: Referred for chiropractic evaluation and treatment. (2) Left medial knee pain: Code(s): M25.562 - Pain in left knee Plan: Ordered MRI of left knee now contrast for further evaluation and management. May continue taking Tylenol [id number] 500 mg every 6 hours as needed for pain. Apply either heat or ice to affected joint Orders: Orders MR knee LT wo con 05/12/24 M25.562 - Pain in left knee Referrals Chiropractic Referral E87.6 - Hypokalemia, M54.2 - Cervicalgia, M54.50 - Low back pain, unspecified Coding Level of Care Code Est Pt Level 4 (25139) Diagnoses Bilateral posterior neck pain M54.2 Left medial knee pain M25.562
== END 2024-05-12 13:42 | disposition home or self-care (01) ==
PROVIDERS: PCP Internal Medicine; Visit Provider Internal Medicine
DX: M54.2 Cervicalgia (principal); M25.562 Pain in left knee
CPT/HCPCS: 99214

== ENCOUNTER 2024-07-16 08:40 | Outpatient (REF) | payer OTHER, SELFPAY ==
--- NOTE | ~2024-07-16 | US_ITS ---
EXAMINATION: US ABDOMEN LIMITED CLINICAL INFORMATION: Other specified diseases of liver. COMPARISON: Ultrasound abdomen complete 01/14/2024. TECHNIQUE: Real-time imaging of the right upper quadrant abdominal viscera. FINDINGS: PANCREAS: The pancreas appears unremarkable, without masses or ductal dilatation, with the exception of the tail which is obscured by bowel gas. LIVER: The liver is normal in size. The liver contour is normal. There is diffuse increased liver parenchymal echogenicity, consistent with hepatic steatosis. At least 4 echogenic masses are seen in the kidney which have appearances suggestive of hemangiomas. 3 are under a centimeter in size. A single slightly less echogenic mass measures 3.7 cm. Similar appearances were seen on the 01/14/2024 ultrasound. There is no intrahepatic biliary duct dilatation seen. GALLBLADDER: Surgically absent. COMMON BILE DUCT: Normal in caliber measuring 0.5 cm in diameter. RIGHT KIDNEY: Normal. No hydronephrosis. No renal calculi or focal parenchymal lesions. The kidney measures 9.2 cm in maximum dimension. FREE FLUID: None. US/US abdomen limited IMPRESSION: 1. Hepatic steatosis. 2. Multiple echogenic liver masses with appearances suggestive of hemangiomas. MRI is recommended for further evaluation for confirmation of the diagnosis if clinically indicated. Electronically signed by: Gucci Nunez MD 07/18/2024 09:23 AM EDT
== END 2024-07-16 08:41 | disposition home or self-care (01) ==
LOC: HO.HMGCX 08:40
PROVIDERS: PCP Internal Medicine; Visit Provider Nurse Practitioner Family
DX: K76.89 Other specified diseases of liver (principal)
CPT/HCPCS: 76705

== ENCOUNTER 2024-08-03 09:17 | Outpatient (REF) | payer OTHER, SELFPAY ==
[2024-08-03 14:22] LABS: Free T4 (Free Thyroxine) 1.22 ng/dL (0.71-1.85); Thyroid Stimulating Hormone 2.29 uIU/mL (0.32-4.0)
[2024-08-03 16:33] LABS: Anion Gap 11 (12-20); Blood Urea Nitrogen 12 mg/dL (9-16); Carbon Dioxide 27 mmol/L (22-29); Chloride 104 mmol/L (96-108); Estimated Glomerular Filt Rate > 60; Glucose Random 85 mg/dL (60-115); Potassium 3.1 mmol/L (3.3-5.1); Sodium 139 mmol/L (135-145)
[2024-08-08 10:55] LABS: Renin 0.97 ng/mL/h (0.25-5.82)
== END 2024-08-03 09:18 | disposition home or self-care (01) ==
LOC: HO.HMGCLDS 09:17
PROVIDERS: PCP Internal Medicine; Referring Provider Student in an Organized Health Care Education/Training Program; Visit Provider Internal Medicine Endocrinology, Diabetes & Metabolism
DX: E87.6 Hypokalemia (principal); E89.0 Postprocedural hypothyroidism
CPT/HCPCS: 36415; 80048; 82088; 84244; 84439; 84443

== ENCOUNTER 2024-08-03 14:45 | Outpatient (AMB) | payer OTHER, SELFPAY ==
[2024-08-03 14:46] VITALS: BP 130/78; PULSE 94; BMI 25.5
--- NOTE | 2024-08-03 14:46 | MHC.OFFVIS ---
Vital Signs 08/03/24 14:46 Height 5 ft 2 in Weight 139 lb 8.842 oz BMI 25.5 BP 130/78 Blood Pressure Location Lt brachial Position Sitting Pulse 94 Pulse Source Pulse Oximeter Intake Visit Reasons: hypothyroidism Intake Note: Patient present today for Hypothyroidism follow up visit. Director Of Graduate Admissions Required: No Accompanied by: Self / Same As Patient Allergies iodine [IODINE] Allergy (Severe, Verified 08/03/24 14:53) ANAPHYLAXIS shellfish derived [SHELLFISH DERIVED] Allergy (Severe, Verified 08/03/24 14:53) ANAPHYLAXIS oxycodone Allergy (Mild, Verified 08/03/24 14:53) Itching Sulfa (Sulfonamide Antibiotics) Allergy (Mild, Verified 08/03/24 14:53) Diarrhea coconut Adverse Reaction (Unknown, Uncoded 08/03/24 14:53) sensativity Medication List - Last Reconciled 08/03/24 by Lucila Hinson MD albuterol sulfate 90 mcg/actuation 2 inhalations inhalation Q6H PRN albuterol sulfate 2.5 mg (3 mL) inhalation Q6H PRN bevacizumab (Avastin) IV Q4W cholecalciferol (vitamin D3) 50 mcg PO DAILY hydrochlorothiazide 25 mg PO DAILY hyoscyamine sulfate ER 0.375 mg PO DAILY magnesium carb,citrate,oxide (Magnesium Complex) 300 mg PO DAILY methylcellulose (laxative) (Citrucel) 500 mg PO DAILY montelukast 10 mg PO QAM nebulizers use as directed every 6 hours as needed for bronchospasm sennosides (Natural Senna Laxative) 17.2 mg (2 x 8.6 mg) PO BEDTIME Synthroid (levothyroxine) 88 mcg PO DAILY NS vitamin B complex 1 cap PO DAILY HPI Comments Details: 53-year-old white female status post total thyroidectomy 2021 with Sol [facility]ara for compressive symptoms with benign pathology now being followed for postoperative hypothyroidism. Was previously following Dr. Bowles , last seen 02/01. She is currently on synthrpid brand levothyroxine 88 mcg q.d. Take it early AM 8 AM , not with other meds, waits an hour before eating. Adherent. Most recent TSH 0.29, free T4 1.28 from July 2024. Does report fatigue. Postmenopausal since 42 years. was on HRT in 40s. Bowel movements are irregular becuase of IBS. Reports dry skin. Reports hair thinning. Losing weight intentionally. Patient currently denies, palpitation, anxiety, mood changes, low energy, changes in appearance of eyes or vision changes, tremors, increased diaphoresis. ? Patient denies any difficulty swallowing, pain on swallowing or voice changes or difficulty breathing. Patient denies any history of childhood neck radiation. Denies having ever used lithium, amiodarone or biotin supplements. Patient denies any family history of thyroid cancer or thyroid disease. HTN Diagnosed in 30s Chart review showed hypokalemia On HCTZ 25 mg daily Blood pressure is well controlled on it. Intermittenlty requires potassium Review of systems Constitutional: no fevers, chills HEENT: no changes in vision Cardiac: No chest pain, discomfort or palpitations. Pulmonary: No SOB Physical exam General: sitting comfortably in no acute distress HEENT: normocephalic/atraumatic, moist oral mucosa Neck: supple, symmetrical, no dorsocervical or supraclavicular fat pads Cardiac: normal heart sounds Pulm: normal breath sounds B/L, no added breath sounds Abd: not distended, no tenderness Extremities: no edema, no signs of myxedema Neuro: AAO x3, Speech: normal, no facial droop, moving all 4 extremities, normal reflexes PFSH Medical History (Updated 05/13/24 @ 01:11 by Yasmin Castillo MD) Left medial knee pain Lumbago Post-surgical hypothyroidism Fatigue Hypothyroidism Symptomatic premature menopause Thyroid nodule greater than or equal to 1.5 cm in diameter incidentally noted on imaging study Intermittent lightheadedness Anxiety and depression Arthralgia of both hands Migraine Chronic rhinitis Vitamin D deficiency Recurrent sinusitis Environmental and seasonal allergies IBS (irritable bowel syndrome) Mild intermittent asthma Essential hypertension Hereditary hemorrhagic telangiectasia Surgical History Hx of thyroidectomy History of biopsy Hx of colonoscopy S/P correction of deviated nasal septum H/O umbilical hernia repair Hx of cholecystectomy Family History Father Prostate cancer Diabetes mellitus Hereditary hemorrhagic telangiectasia PTSD (post-traumatic stress disorder) Essential hypertension Substance use disorder Mental health disorder Mother Osteoporosis Brother Hereditary hemorrhagic telangiectasia Essential hypertension IBS (irritable bowel syndrome) Daughter Substance use disorder Mental health disorder Social History Household Members: Spouse Housing: House Alcohol intake: current Alcohol intake frequency: holidays/special occasions only Patient Tobacco Use Status: Never used Tobacco e-Cigarette/Vaping Use: Never Used service: No Current occupational status: employed 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 identity: Female Cognitive needs: No Hearing needs: No Vision needs: Yes Female Reproductive History Menstrual Age of Menarche: 11 Physical Exam Vital Signs: Last Vital Signs Pulse 94 08/03/24 14:46 BP 130/78 08/03/24 14:46 BMI result Body Mass Index 25.5 Results Reviewed Results Reviewed: Laboratory Tests 01/30/24 08/03/24 09:40 10:06 TSH 3.22 2.29 Free T4 1.08 1.22 Laboratory Tests 10/19/19 11/22/21 05/30/22 09:22 16:48 12:31 Potassium 3.0 L 3.1 L 3.8 10/24/23 12/18/23 09:02 14:14 Potassium 2.8 L 3.5 Assessment & Plan Assessment & Plan (1) Hypothyroidism: Code(s): E03.9 - Hypothyroidism, unspecified Category: Medical Qualifiers: Hypothyroidism type: acquired Qualified Code(s): E03.9 - Hypothyroidism, unspecified Plan: Patient with history of total thyroidectomy for compressive symptoms with benign pathology in 2021, being followed for postoperative hypothyroidism, on 88 mcg of Synthroid. She does complain of fatigue, poor sleep, however she has migraines that result in poor sleep. Bowel movements are regular due to IBS. Her most recent thyroid function shows she is biochemically euthyroid. TSH 2.29 from July 2024. Plan: -continue Synthroid 88 mcg daily -ordered free T4, TSH to be done in 1 year prior to follow up visit -counseled patient about symptoms of hypothyroidism and hyperthyroidism and when to get lab work done sooner. (2) Hypokalemia: Code(s): E87.6 - Hypokalemia Category: Medical Plan: Noted to have hypokalemia intermittently on chart review. Has diagnosis of hypertension, well-controlled on hydrochlorothiazide. Unlikely that she has primary hyperaldosteronism, however we will screen her given history of hypokalemia with hypertension. Plan: -ordered renin, aldosterone, BMP Plan I spent 30 minutes in reviewing the record, seeing the patient and documenting in the medical record. Orders: Orders Renin Today E87.6 - Hypokalemia Basic Metabolic Panel Today E87.6 - Hypokalemia Thyroid Stimulating Hormone 1 Year E03.9 - Hypothyroidism, unspecified Aldosterone Today E87.6 - Hypokalemia Free T4 (Free Thyroxine) 1 Year E03.9 - Hypothyroidism, unspecified Coding Level of Care Code Est Pt Level 4 (73125) Diagnoses Acquired hypothyroidism E03.9 Hypothyroidism type: acquired Hypokalemia E87.6 Time Spent (min) 30
== END 2024-08-03 15:25 | disposition home or self-care (01) ==
PROVIDERS: PCP Internal Medicine; Visit Provider Student in an Organized Health Care Education/Training Program
DX: E03.9 Hypothyroidism, unspecified (principal); E87.6 Hypokalemia
CPT/HCPCS: 99214

== ENCOUNTER → 2024-08-30 12:36 | Outpatient (BNV) | payer OTHER, SELFPAY | PROVIDERS: PCP Internal Medicine; Visit Provider Radiology Diagnostic Radiology | DX: R16.0 Hepatomegaly, not elsewhere classified (principal) | CPT/HCPCS: 74183 ==

== ENCOUNTER 2024-08-30 12:37 | Outpatient (REF) | payer OTHER, SELFPAY ==
--- NOTE | ~2024-08-30 | MR_ITS ---
EXAMINATION: MR ABDOMEN WITHOUT AND WITH CONTRAST CLINICAL INFORMATION: Hepatomegaly. Evaluate for liver masses. COMPARISON: Correlated to ultrasound dated July 16, 2024 TECHNIQUE: MR abdomen was performed without and with use of 6.5 mL intravenous contrast gadolinium without reported immediate complications. Postcontrast images are performed in multiphase dynamic sequences. Imaging was performed in 3 planes. . FINDINGS: : Submitted for interpretation on September 17, 2024. LIVER, GALLBLADDER, AND BILIARY TREE: Liver measures 15 cm. There is slight decreased signal from the in phase to out of phase. There are a few, portal venous phase and delayed phase heterogeneously enhancing lesions in the periphery of the right hepatic lobe with indistinct margins.. Multifocal ill-defined heterogeneous enhancing liver parenchyma in the substracted enhancing sequence. Portal vein and hepatic veins are patent. Intrahepatic portion of the IVC is patent. No intrahepatic biliary ductal dilatation. Gallbladder is absent. Common bile duct measures 5 mm. PANCREAS: No focal pancreatic mass. No peripancreatic fluid collection. No main pancreatic ductal dilatation. SPLEEN: Measures 9 cm. No focal mass. Small accessory spleen.. ADRENAL GLANDS: No nodular lesions. KIDNEYS AND URETERS: No renal mass. No hydronephrosis. Normal enhancement pattern of the renal parenchyma. GASTROINTESTINAL TRACT: Abundant stool. No ascites. No intestinal obstruction pattern. ABDOMINAL WALL: A gross hernia. LYMPH NODES: No lymphadenopathy, retroperitoneal or mesenteric. VASCULAR: No aneurysm or dissection, abdominal aorta. OSSEOUS STRUCTURES: No bone marrow signal abnormality in the axial skeleton. MR/MR abdomen wo/w con IMPRESSION: Nonspecified heterogeneous enhancing lesions throughout the liver parenchyma. Malignancy cannot be excluded. Electronically signed by: Rikki Joseph MD 09/17/2024 02:55 PM EST
[2024-08-30] MEDS: gadobutroL 7.5 ML VIAL IVPUSH (13:52)
== END 2024-08-30 12:38 | disposition home or self-care (01) ==
LOC: HO.MRI 12:37
PROVIDERS: PCP Internal Medicine; Visit Provider Nurse Practitioner Family
DX: R16.0 Hepatomegaly, not elsewhere classified (principal)
CPT/HCPCS: 74183; A9585

== ENCOUNTER 2024-09-07 13:40 | Outpatient (AMB) | payer OTHER, SELFPAY ==
--- NOTE | 2024-09-07 13:45 | A.OFFVIS_ITS ---
Vital Signs 09/07/24 13:46 Height 5 ft 2 in Weight 138 lb 14.259 oz BMI 25.4 BP 146/92 H Blood Pressure Location Rt brachial Position Sitting Pulse 82 Pulse Source Pulse Oximeter Pulse Oximetry (%) 100 Oxygen Delivery Method Room Air Intake Visit Reasons: FUV, discuss MRI results. Intake Note: Relevant Flags or Indicators ? Requires Test Center Manager? N Melva presents in office today for a scheduled ~6 mos FUV. CC; MRI and US of abd ordered and done. No recent Rx or Lab orders. Relevant GI Sx as reported per pt? o?? Diarrhea -- Intermittent but better since starting Rx K+ ? Hx of any recent surgeries? None Test Center Manager Required: No Allergies iodine [IODINE] Allergy (Severe, Verified 09/07/24 13:52) ANAPHYLAXIS shellfish derived [SHELLFISH DERIVED] Allergy (Severe, Verified 09/07/24 13:52) ANAPHYLAXIS oxycodone Allergy (Mild, Verified 09/07/24 13:52) Itching Sulfa (Sulfonamide Antibiotics) Allergy (Mild, Verified 09/07/24 13:52) Diarrhea coconut Adverse Reaction (Unknown, Uncoded 08/21/24 11:44) sensativity HPI HPI FUV, discuss MRI results.: Details: LAST VISIT: Liver cyst Hereditary hemorrhagic telangiectasia IBS (irritable bowel syndrome) Postprandial abdominal bloating Constipation Plan Limited ultrasound to evaluate the liver to evaluate hepatic cysts. Most likely hemangioma. Continue avoiding dietary triggers and late night snacking. Staying upright for minimum 3 hours after meals discussed with patient. Continue low FODMAP diet. Return in the office in 5 months, sooner on as needed basis. She is agreeable to this plan and verbalizes understanding of instructions. She was given the opportunity to ask questions and all questions answered. ? Thank you for allowing me to participate in her care Orders Orders US abdomen limited 07/16/24 K76.89 TODAY'S VISIT Patient is here today for follow-up and to discuss recent testing. Patient reports that she did very well in [place] doing trial of Avastin. She reports to have more energy and less nosebleed. Maybe 1-2 nosebleeds a week that are very minor. Patient has suffered from HHT. We sent her for abdominal ultrasound and she was found to have 4 echogenic masses most likely hemangioma. Recommendation was made to get MRI. Patient had MRI done on 30 of August and results are not available yet. Patient denies any fatigue. Reports to be feeling much better. Occasional loose stools depending on what she eats. For the most part patient denies any GI concerning symptoms. She denies any melena, hematochezia, unintentional weight loss or ribbon like stools. Patient denies dyspepsia, dysphagia or odynophagia. Patient will be due to go for colonoscopy, however due to her diagnosis unable to do biopsy due to bleeding, however patient is doing better and has less nosebleeds. She will talk to her oncologist in [place] to see if she can undergo colonoscopy in the near future. We will need to check PT and INR before proceeding. [facility] Medical History Left medial knee pain Lumbago Post-surgical hypothyroidism Fatigue Hypothyroidism Symptomatic premature menopause Thyroid nodule greater than or equal to 1.5 cm in diameter incidentally noted on imaging study Intermittent lightheadedness Anxiety and depression Arthralgia of both hands Migraine Chronic rhinitis Vitamin D deficiency Recurrent sinusitis Environmental and seasonal allergies IBS (irritable bowel syndrome) Mild intermittent asthma Essential hypertension Hereditary hemorrhagic telangiectasia Surgical History Hx of thyroidectomy History of biopsy Hx of colonoscopy S/P correction of deviated nasal septum H/O umbilical hernia repair Hx of cholecystectomy Family History Father Prostate cancer Diabetes mellitus Hereditary hemorrhagic telangiectasia PTSD (post-traumatic stress disorder) Essential hypertension Substance use disorder Mental health disorder Mother Osteoporosis Brother Hereditary hemorrhagic telangiectasia Essential hypertension IBS (irritable bowel syndrome) Daughter Substance use disorder Mental health disorder Social History Household Members: Spouse Housing: House Alcohol intake: current Alcohol intake frequency: holidays/special occasions only Patient Tobacco Use Status: Never used Tobacco e-Cigarette/Vaping Use: Never Used service: No Current occupational status: employed 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 identity: Female Cognitive needs: No Hearing needs: No Vision needs: Yes Female Reproductive History Menstrual Age of Menarche: 11 Review of Systems Const Denies weight gain and Denies weight loss ENT Reports no additional complaints, Denies dysphagia and Denies odynophagia Card Reports no additional complaints Resp Reports no additional complaints GI Denies abdominal pain, Denies belching, Denies melena, Denies bloating, Denies change in bowel habits, Denies dysphagia, Denies excessive flatus, Denies dyspepsia, Denies heartburn, Denies diarrhea, Reports loose stools (Postprandially), Denies nausea, Denies odynophagia and Denies vomiting Musc Reports no additional complaints Neuro Reports no additional complaints Psych Reports no additional complaints Endo Reports no additional complaints Physical Exam Vital Signs: Last Vital Signs Pulse 82 09/07/24 13:46 BP 146/92 H 09/07/24 13:46 Pulse Ox 100 09/07/24 13:46 Oxygen Delivery Method Room Air 09/07/24 13:46 BMI result Body Mass Index 25.4 Const General: healthy appearing, no acute distress and well developed Nutritional Appearance: well nourished Orientation/consciousness: patient oriented x3 Resp Effort & Inspection: normal respiratory effort, able to speak in complete sentences, no tracheal deviation and symmetric chest movement Auscultation: clear to auscultation bilaterally Cardio Rate: regular rate GI Inspection: Yes normal to inspection and No distended Palpation (GI): Soft to palpation, not firm, nontender and No hepatosplenomegaly present Auscultation: normal bowel sounds General: Yes no CVA tenderness Back/Spine/Pelvis Back: no CVA tenderness Skin General skin exam: elasticity normal, turgor normal and dry skin Neuro General: patient oriented x3 Psych Appearance: grossly normal Mental Status: mental status grossly normal Results Reviewed Results Reviewed: ABDOMINAL ULTRASOUND FINDINGS: PANCREAS: The pancreas appears unremarkable, without masses or ductal dilatation, with the exception of the tail which is obscured by bowel gas. LIVER: The liver is normal in size. The liver contour is normal. There is diffuse increased liver parenchymal echogenicity, consistent with hepatic steatosis. At least 4 echogenic masses are seen in the kidney which have appearances suggestive of hemangiomas. 3 are under a centimeter in size. A single slightly less echogenic mass measures 3.7 cm. Similar appearances were seen on the 01/14/2024 ultrasound. There is no intrahepatic biliary duct dilatation seen. GALLBLADDER: Surgically absent. COMMON BILE DUCT: Normal in caliber measuring 0.5 cm in diameter. RIGHT KIDNEY: Normal. No hydronephrosis. No renal calculi or focal parenchymal lesions. The kidney measures 9.2 cm in maximum dimension. FREE FLUID: None. US/US abdomen limited IMPRESSION: 1. Hepatic steatosis. 2. Multiple echogenic liver masses with appearances suggestive of hemangiomas. MRI is recommended for further evaluation for confirmation of the diagnosis if clinically indicated. Assessment & Plan Assessment & Plan (1) IBS (irritable bowel syndrome): Code(s): K58.9 - Irritable bowel syndrome, unspecified Category: Medical Qualifiers: Irritable bowel syndrome type: with both diarrhea and constipation Qualified Code(s): K58.2 - Mixed irritable bowel syndrome (2) Liver mass: Code(s): R16.0 - Hepatomegaly, not elsewhere classified (3) Hereditary hemorrhagic telangiectasia: Code(s): I78.0 - Hereditary hemorrhagic telangiectasia Category: Medical (4) Liver cyst: Code(s): K76.89 - Other specified diseases of liver (5) Postprandial abdominal bloating: Code(s): R14.0 - Abdominal distension (gaseous) Plan Unchanged 4 echogenic masses found in patient's liver on ultrasound. Patient had MRI done, however reading is not available yet. I will send patient for CMP, B12, folate, vitamin-D level as well as PT and INR. Patient will return in 6 months sooner on as needed basis. She is agreeable to this plan and verbalizes understanding of instructions. She was given the opportunity to ask questions and all questions answered. Thank you for allowing me to participate in her care Orders: Orders Comprehensive Met. Panel Today K21.9 - Gastro-esophageal reflux disease without esophagitis Vitamin B12 and Folate Today R19.7 - Diarrhea, unspecified Vitamin D 25-OH (D2 and D3) Today E55.9 - Vitamin D deficiency, unspecified Prothrombin Time INR Today R74.8 - Abnormal levels of other serum enzymes Coding Level of Care Code Est Pt Level 4 (64580) Diagnoses Irritable bowel syndrome with both constipation and diarrhea K58.2 Irritable bowel syndrome type: with both diarrhea and constipation Liver mass R16.0 Hereditary hemorrhagic telangiectasia I78.0 Liver cyst K76.89 Postprandial abdominal bloating R14.0 Time Spent (min) 35 Comment 20 minutes spent with patient and additional 15 minutes spent reviewing her records
[2024-09-07 13:46] VITALS: BP 146/92; PULSE 82; O2SAT 100; BMI 25.4
== END 2024-09-07 14:36 | disposition home or self-care (01) ==
LOC: HO.HGI 13:41
PROVIDERS: PCP Internal Medicine; Visit Provider Nurse Practitioner Family
DX: K58.2 Mixed irritable bowel syndrome (principal); R16.0 Hepatomegaly, not elsewhere classified; I78.0 Hereditary hemorrhagic telangiectasia; K76.89 Other specified diseases of liver; R14.0 Abdominal distension (gaseous)
CPT/HCPCS: 99214

== ENCOUNTER → 2024-09-07 13:40 | Outpatient (BNVA) | payer OTHER, SELFPAY | PROVIDERS: PCP Internal Medicine; Visit Provider Nurse Practitioner Family ==

== ENCOUNTER 2024-10-15 08:17 | Outpatient (REF) | payer OTHER, SELFPAY ==
[2024-10-15 10:28] LABS: Prothrombin Time 11.8 SEC (10.9-12.4)
[2024-10-15 10:40] LABS: Alanine Aminotransferase 57 U/L (0-31); Albumin Level 3.7 g/dL (3.5-5.0); Alkaline Phosphatase 152 U/L (39-117); Anion Gap 13 (12-20); Aspartate Amino Transferase 40 U/L (5-31); Bilirubin Total 0.4 mg/dL (0.0-1.0); Blood Urea Nitrogen 12 mg/dL (9-16); Calcium 9.2 mg/dL (8.4-10.2); Carbon Dioxide 24 mmol/L (22-29); Chloride 104 mmol/L (96-108); Estimated Glomerular Filt Rate > 60; Glucose Random 102 mg/dL (60-115); Potassium 3.4 mmol/L (3.3-5.1); Sodium 138 mmol/L (135-145); Total Protein 7.2 g/dL (6.5-8.0)
[2024-10-15 11:12] LABS: Folate 8.1 ng/mL (> or = 4.0); Vitamin B12 468 pg/mL (200-900)
[2024-10-20 13:38] LABS: Vitamin D 25-OH, D2 <4 ng/mL; Vitamin D 25-OH, D3 35 ng/mL; Vitamin D 25-OH, Total 35 ng/mL (30-100)
[2024-10-20 16:54] LABS: Renin 1.81 ng/mL/h (0.25-5.82)
== END 2024-10-15 08:18 | disposition home or self-care (01) ==
LOC: HO.HMGCLDS 08:17
PROVIDERS: PCP Internal Medicine; Referring Provider Student in an Organized Health Care Education/Training Program; Visit Provider Nurse Practitioner Family
DX: E87.6 Hypokalemia (principal); E55.9 Vitamin D deficiency, unspecified; K21.9 Gastro-esophageal reflux disease without esophagitis; R19.7 Diarrhea, unspecified; R74.8 Abnormal levels of other serum enzymes; Z79.01 Long term (current) use of anticoagulants
CPT/HCPCS: 36415; 80053; 82088; 82306; 82607; 82746; 84244; 85610

== ENCOUNTER 2024-12-01 07:55 | Outpatient (REF) | payer OTHER, SELFPAY ==
[2024-12-01 08:14] LABS: MANUAL DIFF FLAG NO
[2024-12-01 08:33] LABS: Basophils Absolute Auto 0.1 X10*3/uL (0.0-0.2); Basophils Percent Auto 0.8 % (0-2); Eosinophils Absolute Auto 0.2 X10*3/uL (0.0-0.4); Hematocrit 41.7 % (37.0-47.0); Imm Gran Abs Auto 0.01 X10*3/uL (0.00-0.03); Imm Gran Pct Auto 0.2 % (0.0-0.4); Lymphocytes Absolute Auto 2.2 X10*3/uL (1.2-4.9); Lymphocytes Percent Auto 34.9 % (20-40); Mean Corpuscular HGB Conc 33.6 g/dl (31.0-35.0); Mean Corpuscular Hemoglobin 29.3 pg (27.0-33.0); Mean Corpuscular Volume 87.2 fL (80.0-98.0); Mean Platelet Volume 8.8 fL (9.4-12.3); Monocytes Absolute Auto 0.6 X10*3/uL (0.1-1.2); Monocytes Percent Auto 9.8 % (2-11); Neutrophils Absolute Auto 3.3 x10*3/uL (2.0-8.3); Neutrophils Percent Auto 51.3 % (45-73); Platelet Count 275 X10*3/uL (160-400); Red Blood Count 4.78 X10*6/uL (4.20-5.50); Red Cell Distribution Width 12.8 % (11.0-16.0); White Blood Count 6.4 X10*3/uL (4.8-10.8)
[2024-12-01 09:11] LABS: Alanine Aminotransferase 57 U/L (0-31); Anion Gap 11 (12-20); Aspartate Amino Transferase 50 U/L (5-31); Blood Urea Nitrogen 14 mg/dL (9-16); Calcium 8.7 mg/dL (8.4-10.2); Carbon Dioxide 23 mmol/L (22-29); Chloride 109 mmol/L (96-108); Cholesterol 186 mg/dL (<200); Estimated Glomerular Filt Rate > 60; Glucose Fasting 91 mg/dL (60-99); HDL Cholesterol 43 mg/dL (>40); LDL Cholesterol Calculated 109 mg/dL (<100); Potassium 3.6 mmol/L (3.3-5.1); Sodium 139 mmol/L (135-145); Triglycerides 171 mg/dL (<150)
[2024-12-01 09:30] LABS: Vitamin D 25-OH Total 38.9 ng/mL (>30)
== END 2024-12-01 07:56 | disposition home or self-care (01) ==
LOC: HO.LAB 07:55
PROVIDERS: PCP Internal Medicine; Visit Provider Internal Medicine
DX: E28.310 Symptomatic premature menopause (principal)
CPT/HCPCS: 36415; 80048; 80061; 82306; 84450; 84460; 85025

== ENCOUNTER → 2024-12-02 13:27 | Outpatient (BNVA) | payer OTHER, SELFPAY | PROVIDERS: PCP Internal Medicine; Visit Provider Internal Medicine | DX: Z00.01 Encounter for general adult medical examination with abnormal findings (principal); I78.0 Hereditary hemorrhagic telangiectasia; I10 Essential (primary) hypertension; J45.20 Mild intermittent asthma, uncomplicated; K58.2 Mixed irritable bowel syndrome; J30.89 Other allergic rhinitis; G43.909 Migraine, unspecified, not intractable, without status migrainosus; E89.0 Postprocedural hypothyroidism; Z79.899 Other long term (current) drug therapy | CPT/HCPCS: 96127 ==

== ENCOUNTER 2025-03-02 12:33 | Outpatient (AMB) | payer OTHER, SELFPAY ==
[2025-03-02 12:59] VITALS: BP 120/82; PULSE 76; O2SAT 99; BMI 26.7
--- NOTE | 2025-03-02 12:59 | MHC.OFFVIS ---
Vital Signs 03/02/25 12:59 Height 5 ft 2 in Weight 146 lb BMI 26.7 BP 120/82 Blood Pressure Location Lt brachial Position Sitting Pulse 76 Pulse Source Pulse Oximeter Pulse Oximetry (%) 99 Oxygen Delivery Method Room Air Intake Visit Reasons: 6 month follow up Intake Note: ESTABLISHED PATIENT for mgmt of Liver Abn and IBS. Labs done. Chief Complaint; C/O RUQ swelling that pt has concern that it could be pertaining to her liver. Pt also reports that she stopped taking citrucel due to adverse reaction (abd pain). Pt would also like to discuss the MRI report that was read incorrectly or inadequately multiple times. Sunday School Missionary Required: No Accompanied by: Self / Same As Patient Allergies iodine [IODINE] Allergy (Severe, Verified 03/02/25 12:59) ANAPHYLAXIS shellfish derived [SHELLFISH DERIVED] Allergy (Severe, Verified 03/02/25 12:59) ANAPHYLAXIS oxycodone Allergy (Mild, Verified 03/02/25 12:59) Itching Sulfa (Sulfonamide Antibiotics) Allergy (Mild, Verified 03/02/25 12:59) Diarrhea coconut Adverse Reaction (Unknown, Uncoded 03/02/25 12:59) sensativity HPI HPI 6 month follow up: Details: LAST VISIT: IBS (irritable bowel syndrome) Liver mass Hereditary hemorrhagic telangiectasia Liver cyst Postprandial abdominal bloating Plan Unchanged 4 echogenic masses found in patient's liver on ultrasound. Patient had MRI done, however reading is not available yet. I will send patient for CMP, B12, folate, vitamin-D level as well as PT and INR. Patient will return in 6 months sooner on as needed basis. She is agreeable to this plan and verbalizes understanding of instructions. She was given the opportunity to ask questions and all questions answered. ? Thank you for allowing me to participate in her care Orders Orders Comprehensive Met. Panel Today K21.9 Vitamin B12 and Folate Today R19.7 Vitamin D 25-OH (D2 and D3) Today E55.9 Prothrombin Time INR Today R74.8 TODAY'S VISIT Patient is here today for follow-up. Patient reports right upper quadrant discomfort and bloating. Patient is concerned about the reading of her MRI. MRI was read however it is not detailed mentioning how big are this cysts and what might represent. Patient reports that she is otherwise feeling fairly well. Has not seen her provider in [place] and did not require infusions since July. Patient reports that she does not have nose bleeds as often as she did before. Very infrequent. Patient reports that she has been feeling fairly well. Patient denies melena, hematochezia, unintentional weight loss or ribbon like stools. Patient does admit that she has been feeling well and she has more appetite. Eating out and gained couple lb. Reports moving her bowels, however not feeling like she empties them completely. Tried Citrucel in the past, however it was making her feel very bloated and crampy. Patient denies dyspepsia, dysphagia or odynophagia PFSH Medical History Left medial knee pain Lumbago Post-surgical hypothyroidism Fatigue Hypothyroidism Symptomatic premature menopause Thyroid nodule greater than or equal to 1.5 cm in diameter incidentally noted on imaging study Intermittent lightheadedness Anxiety and depression Arthralgia of both hands Migraine Chronic rhinitis Vitamin D deficiency Recurrent sinusitis Environmental and seasonal allergies IBS (irritable bowel syndrome) Mild intermittent asthma Essential hypertension Hereditary hemorrhagic telangiectasia Surgical History Hx of thyroidectomy History of biopsy Hx of colonoscopy S/P correction of deviated nasal septum H/O umbilical hernia repair Hx of cholecystectomy Family History Father Prostate cancer Diabetes mellitus Hereditary hemorrhagic telangiectasia PTSD (post-traumatic stress disorder) Essential hypertension Substance use disorder Mental health disorder Mother Osteoporosis Brother Hereditary hemorrhagic telangiectasia Essential hypertension IBS (irritable bowel syndrome) Daughter Substance use disorder Mental health disorder Social History Household Members: Spouse Housing: House Alcohol intake: current Alcohol intake frequency: holidays/special occasions only Patient Tobacco Use Status: Never used Tobacco e-Cigarette/Vaping Use: Never Used service: No Current occupational status: employed 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 identity: Female Cognitive needs: No Hearing needs: No Vision needs: Yes Female Reproductive History Menstrual Age of Menarche: 11 Review of Systems Const Denies weight gain and Denies weight loss ENT Reports no additional complaints, Denies dysphagia and Denies odynophagia Card Reports no additional complaints Resp Reports no additional complaints GI Denies abdominal pain, Denies belching, Denies melena, Denies bloating, Denies change in bowel habits, Denies dysphagia, Denies excessive flatus, Denies dyspepsia, Denies heartburn, Denies diarrhea, Reports loose stools (Postprandially), Denies nausea, Denies odynophagia and Denies vomiting Musc Reports no additional complaints Neuro Reports no additional complaints Psych Reports no additional complaints Endo Reports no additional complaints Physical Exam Vital Signs: Last Vital Signs Pulse 76 03/02/25 12:59 BP 120/82 03/02/25 12:59 Pulse Ox 99 03/02/25 12:59 Oxygen Delivery Method Room Air 03/02/25 12:59 BMI result Body Mass Index 26.7 Const General: healthy appearing, no acute distress and well developed Nutritional Appearance: well nourished Orientation/consciousness: patient oriented x3 Resp Effort & Inspection: normal respiratory effort, able to speak in complete sentences, no tracheal deviation and symmetric chest movement Auscultation: clear to auscultation bilaterally Cardio Rate: regular rate GI Inspection: Yes normal to inspection and No distended Palpation (GI): Soft to palpation, not firm, nontender and No hepatosplenomegaly present Auscultation: normal bowel sounds General: Yes no CVA tenderness Back/Spine/Pelvis Back: no CVA tenderness Skin General skin exam: elasticity normal, turgor normal and dry skin Neuro General: patient oriented x3 Psych Appearance: grossly normal Mental Status: mental status grossly normal Assessment & Plan Assessment & Plan (1) IBS (irritable bowel syndrome): Code(s): K58.9 - Irritable bowel syndrome, unspecified Category: Medical Qualifiers: Irritable bowel syndrome type: with both diarrhea and constipation Qualified Code(s): K58.2 - Mixed irritable bowel syndrome (2) Hereditary hemorrhagic telangiectasia: Code(s): I78.0 - Hereditary hemorrhagic telangiectasia Category: Medical (3) Liver mass: Code(s): R16.0 - Hepatomegaly, not elsewhere classified (4) Liver cyst: Code(s): K76.89 - Other specified diseases of liver (5) Postprandial abdominal bloating: Code(s): R14.0 - Abdominal distension (gaseous) Plan Will inquire about MRI reading to see if another radiologist can read the study. Patient will start taking Dulcolax daily as she does not empty her bowels completely. Increase fluid intake and activity to promote better bowel motility. Follow low FODMAP diet. Patient will follow-up in 3 months, sooner on as needed basis. She is agreeable to this plan and verbalizes understanding of instructions. She was given the opportunity to ask questions and all questions answered. Thank you for allowing me to participate in her care Medications: New bisacodyl (Dulcolax (bisacodyl)) 10 mg (2 x 5 mg) PO BEDTIME 180 tabs 4RF Coding Level of Care Code Est Pt Level 3 (46675) Diagnoses Irritable bowel syndrome with both constipation and diarrhea K58.2 Irritable bowel syndrome type: with both diarrhea and constipation Hereditary hemorrhagic telangiectasia I78.0 Liver mass R16.0 Liver cyst K76.89 Postprandial abdominal bloating R14.0 Time Spent (min) 25 Comment 15 minutes spent with patient and additional 10 minutes spent reviewing her records
== END 2025-03-02 13:37 | disposition home or self-care (01) ==
LOC: HO.HGI 12:33
PROVIDERS: PCP Internal Medicine; Visit Provider Nurse Practitioner Family
DX: K58.2 Mixed irritable bowel syndrome (principal); I78.0 Hereditary hemorrhagic telangiectasia; R16.0 Hepatomegaly, not elsewhere classified; K76.89 Other specified diseases of liver; R14.0 Abdominal distension (gaseous)
CPT/HCPCS: 99213

== ENCOUNTER → 2025-03-02 12:33 | Outpatient (BNVA) | payer OTHER, SELFPAY | PROVIDERS: PCP Internal Medicine; Visit Provider Nurse Practitioner Family ==

== ENCOUNTER 2025-03-27 08:59 | Outpatient (REF) | payer OTHER, SELFPAY | END 2025-03-27 09:00 | disposition home or self-care (01) | LOC: HO.MAMMO 08:59 | PROVIDERS: PCP Internal Medicine; Visit Provider Internal Medicine | DX: Z12.31 Encounter for screening mammogram for malignant neoplasm of breast (principal) | CPT/HCPCS: 77063; 77067 ==

== ENCOUNTER → 2025-03-27 09:00 | Outpatient (BNV) | payer OTHER, SELFPAY | PROVIDERS: PCP Internal Medicine; Visit Provider Internal Medicine | DX: Z12.31 Encounter for screening mammogram for malignant neoplasm of breast (principal) | CPT/HCPCS: 77063; 77067 ==

== ENCOUNTER 2025-03-30 14:04 | Outpatient (AMB) | payer OTHER, SELFPAY ==
--- NOTE | 2025-03-30 14:06 | A.OFFVIS_ITS ---
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 She defers her physical exam today, would prefer to talk about her hormonal concerns. She reports being taken off her medication due to her medical history. History of early menopause and was on Prempro for many years and felt good while taking the hormone. She now reports having depression and anxiety, brain fog, vaginal pain and dryness. Unable to be an intimate with her due to the pain which is affecting her. She has tried Replens moisturizer without success. She is doing well with rn gyn concerns. Pap smear 2023-negative. Mammogram completed, not read yet. [facility] Medical History Left medial knee pain Lumbago Post-surgical hypothyroidism Fatigue Hypothyroidism Symptomatic premature menopause Thyroid nodule greater than or equal to 1.5 cm in diameter incidentally noted on imaging study Intermittent lightheadedness Anxiety and depression Arthralgia of both hands Migraine Chronic rhinitis Vitamin D deficiency Recurrent sinusitis Environmental and seasonal allergies IBS (irritable bowel syndrome) Mild intermittent asthma Essential hypertension Hereditary hemorrhagic telangiectasia Surgical History Hx of thyroidectomy History of biopsy Hx of colonoscopy S/P correction of deviated nasal septum H/O umbilical hernia repair Hx of cholecystectomy Family History (Updated 03/30/25 @ 14:11 by CAMILLA Tillman) Father Prostate cancer Diabetes mellitus Hereditary hemorrhagic telangiectasia PTSD (post-traumatic stress disorder) Essential hypertension Substance use disorder Mental health disorder Mother Osteoporosis Ovarian cancer Brother Hereditary hemorrhagic telangiectasia Essential hypertension IBS (irritable bowel syndrome) Daughter Substance use disorder Mental health disorder Social History (Updated 03/30/25 @ 14:11 by CAMILLA Tillman) Household Members: Spouse Housing: House Alcohol intake: former Patient Tobacco Use Status: Never used Tobacco e-Cigarette/Vaping Use: Never Used service: No Current occupational status: employed 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 identity: Female Cognitive needs: No Hearing needs: No Vision needs: Yes Female Reproductive History Menstrual Age of Menarche: 11 Total pregnancies: 5 Full term: 2 Number of Living Children: 2 Ab spontaneous: 3 Date of last pap smear: 03/25/24 (neg pap and hpv) Date of Mammogram: 03/27/25 Review of Systems Const All systems reviewed & are unremarkable except as noted in HPI and below Endo Reports no additional complaints Physical Exam Vital Signs: Last Vital Signs BP 118/72 03/30/25 14:07 BMI result Body Mass Index 27.4 Const General: cooperative, healthy appearing and no acute distress Psych Appearance: well kempt Attitude: cooperative Thought process: Normal thought process present Assessment & Plan Assessment & Plan (1) Hereditary hemorrhagic telangiectasia: Code(s): I78.0 - Hereditary hemorrhagic telangiectasia Category: Medical (2) Symptomatic premature menopause: Code(s): E28.310 - Symptomatic premature menopause Category: Medical Plan Discussed: Information regarding menopause organization handout given. Referral placed to [facility] to Mamta BUTLER for consult regarding HRT. The patient expressed understanding and agreement with the plan of care. All of her questions and concerns were addressed to the best of my ability. Advised to reschedule annual exam. This note is constructed using voice recognition software. While every effort has been made to ensure accuracy, director of strategic partnerships errors may have been included. Orders: Referrals MACHINE OPERATOR PACKAGING Referral F32.A - Depression, unspecified, I78.0 - Hereditary hemorrhagic telangiectasia, N94.10 - Unspecified dyspareunia, R41.89 - Other symptoms and signs involving cognitive functions and awareness Coding Level of Care Code Est Pt Level 3 (83358) Diagnoses Hereditary hemorrhagic telangiectasia I78.0 Symptomatic premature menopause E28.310
[2025-03-30 14:07] VITALS: BP 118/72; BMI 27.4
== END 2025-03-30 14:33 | disposition home or self-care (01) ==
LOC: HO.HWS 14:04
PROVIDERS: PCP Internal Medicine; Visit Provider Advanced Practice Midwife
DX: I78.0 Hereditary hemorrhagic telangiectasia (principal); E28.310 Symptomatic premature menopause
CPT/HCPCS: 99213

== ENCOUNTER 2025-08-10 13:50 | Outpatient (REF) | payer OTHER, SELFPAY ==
[2025-08-10 16:26] LABS: Free T4 (Free Thyroxine) 1.26 ng/dL (0.71-1.85); Thyroid Stimulating Hormone 10.03 uIU/mL (0.32-4.0)
[2025-08-10 16:27] LABS: Anion Gap 12 (12-20); Blood Urea Nitrogen 9 mg/dL (9-16); Calcium 9.2 mg/dL (8.4-10.2); Carbon Dioxide 27 mmol/L (22-29); Chloride 100 mmol/L (96-108); Estimated Glomerular Filt Rate > 60; Potassium 2.9 mmol/L (3.3-5.1); Sodium 136 mmol/L (135-145)
== END 2025-08-10 13:51 | disposition home or self-care (01) ==
LOC: HO.LAB 13:50
PROVIDERS: PCP Internal Medicine; Visit Provider Student in an Organized Health Care Education/Training Program
DX: E03.9 Hypothyroidism, unspecified (principal); E87.6 Hypokalemia; Z79.890 Hormone replacement therapy
CPT/HCPCS: 36415; 80048; 84439; 84443

== ENCOUNTER 2025-08-10 13:50 | Outpatient (AMB) | payer OTHER, SELFPAY ==
--- NOTE | 2025-08-10 13:55 | MHC.OFFVIS ---
Vital Signs 08/10/25 13:56 Height 5 ft 2 in Weight 143 lb 11.862 oz BMI 26.3 BP 128/84 Blood Pressure Location Lt brachial Position Sitting Pulse 82 Pulse Source Pulse Oximeter Pulse Oximetry (%) 98 Oxygen Delivery Method Room Air Intake Visit Reasons: hypothyroidism Intake Note: Patient preset today for hypothyroidism office visit. Eyewear Consultant Required: No Accompanied by: Self / Same As Patient Allergies iodine (IODINE) Allergy (Severe, Verified 08/10/25 13:59) ANAPHYLAXIS shellfish derived (SHELLFISH DERIVED) Allergy (Severe, Verified 08/10/25 13:59) ANAPHYLAXIS oxycodone Allergy (Mild, Verified 08/10/25 13:59) Itching Sulfa (Sulfonamide Antibiotics) Allergy (Mild, Verified 08/10/25 13:59) Diarrhea coconut Adverse Reaction (Unknown, Uncoded 08/10/25 13:59) sensativity Medication List - Last Reconciled 08/10/25 by Lucila Hinson MD albuterol sulfate 90 mcg/actuation 2 inhalations inhalation Q6H PRN albuterol sulfate 2.5 mg (3 mL) inhalation Q6H PRN bevacizumab (Avastin) IV Q6W cholecalciferol (vitamin D3) 50 mcg PO DAILY estradiol mcg vaginal estradiol 1 patch topical 2XW hydrochlorothiazide 25 mg PO DAILY hyoscyamine sulfate ER 0.375 mg PO DAILY 90 days nebulizers use as directed every 6 hours as needed for bronchospasm progesterone micronized 100 mg PO BEDTIME Synthroid (levothyroxine) 88 mcg PO DAILY NS HPI Comments Details: 54-year-old white female status post total thyroidectomy 2021 with Sol Ohara for compressive symptoms with benign pathology now being followed for postoperative hypothyroidism. She is currently on synthrpid brand levothyroxine 88 mcg q.d. Take it early AM 8 AM , not with other meds, waits an hour before eating. Adherent. Most recent TSH 0.29, free T4 1.28 from July 2024. Does report fatigue. Postmenopausal since 42 years. was on HRT in 40s. Bowel movements are irregular becuase of IBS. Reports dry skin. Reports hair thinning. Losing weight intentionally. Patient currently denies, palpitation, anxiety, mood changes, low energy, changes in appearance of eyes or vision changes, tremors, increased diaphoresis. ? Patient denies any difficulty swallowing, pain on swallowing or voice changes or difficulty breathing. Patient denies any history of childhood neck radiation. Denies having ever used lithium, amiodarone or biotin supplements. Patient denies any family history of thyroid cancer or thyroid disease. Interval history Currently continues on Synthroid 88 mcg daily forgot to do blood work prior to this appointment HTN Diagnosed in 30s Chart review showed hypokalemia On HCTZ 25 mg daily Blood pressure is well controlled on it. Intermittenlty requires potassium Blood work from October 2024 showed non suppressed renin of 1.81, aldosterone of 15, potassium 3.4. At this time no concern for primary hyperaldosteronism. Physical exam General: sitting comfortably in no acute distress HEENT: normocephalic/atraumatic, Cardiac: Regular heart rate Pulm: Normal pulmonary effort Abd: not distended, Laboratory Tests 01/30/24 08/03/24 09:40 10:06 TSH 3.22 2.29 Free T4 1.08 1.22 Laboratory Tests 10/19/19 11/22/21 05/30/22 09:22 16:48 12:31 Potassium 3.0 L 3.1 L 3.8 10/24/23 12/18/23 09:02 14:14 Potassium 2.8 L 3.5 Laboratory Tests 01/30/24 08/03/24 10/15/24 09:40 10:06 08:28 Potassium 3.4 Renin 1.81 Aldosterone 15 TSH 3.22 2.29 Free T4 1.08 1.22 PENDING SALE TO [facility] Medical History (Updated 03/30/25 @ 14:39 by Tiffany Dunlap CNM) Brain fog Depression Dyspareunia in female Left medial knee pain Lumbago Post-surgical hypothyroidism Fatigue Hypothyroidism Symptomatic premature menopause Thyroid nodule greater than or equal to 1.5 cm in diameter incidentally noted on imaging study Intermittent lightheadedness Anxiety and depression Arthralgia of both hands Migraine Chronic rhinitis Vitamin D deficiency Recurrent sinusitis Environmental and seasonal allergies IBS (irritable bowel syndrome) Mild intermittent asthma Essential hypertension Hereditary hemorrhagic telangiectasia Surgical History Hx of thyroidectomy History of biopsy Hx of colonoscopy S/P correction of deviated nasal septum H/O umbilical hernia repair Hx of cholecystectomy Family History Father Prostate cancer Diabetes mellitus Hereditary hemorrhagic telangiectasia PTSD (post-traumatic stress disorder) Essential hypertension Substance use disorder Mental health disorder Mother Osteoporosis Ovarian cancer Brother Hereditary hemorrhagic telangiectasia Essential hypertension IBS (irritable bowel syndrome) Daughter Substance use disorder Mental health disorder Social History Household Members: Spouse Housing: House Alcohol intake: former Patient Tobacco Use Status: Never used Tobacco e-Cigarette/Vaping Use: Never Used service: No Current occupational status: employed 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 identity: Female Cognitive needs: No Hearing needs: No Vision needs: Yes Female Reproductive History Menstrual Age of Menarche: 11 Physical Exam Vital Signs: Last Vital Signs Pulse 82 08/10/25 13:56 BP 128/84 08/10/25 13:56 Pulse Ox 98 08/10/25 13:56 Oxygen Delivery Method Room Air 08/10/25 13:56 BMI result Body Mass Index 26.3 Assessment & Plan Assessment & Plan (1) Hypothyroidism: Code(s): E03.9 - Hypothyroidism, unspecified Category: Medical Qualifiers: Hypothyroidism type: acquired Qualified Code(s): E03.9 - Hypothyroidism, unspecified Plan: Patient with history of total thyroidectomy for compressive symptoms with benign pathology in 2021, being followed for postoperative hypothyroidism, on 88 mcg of Synthroid. She does complain of fatigue,Currently continues on Synthroid 88 mcg daily forgot to do blood work prior to this appointment Plan: -continue Synthroid 88 mcg daily -do free T4, TSH , we will reach out with the results -we will also need repeat blood work prior to follow up in 1 year Plan See above Medications: Refilled Synthroid (levothyroxine) Brand name only, no substitution allowed 88 mcg PO DAILY 30 tabs 12RF NS Coding Level of Care Code Est Pt Level 3 (71061) Diagnoses Acquired hypothyroidism E03.9 Hypothyroidism type: acquired
[2025-08-10 13:56] VITALS: BP 128/84; PULSE 82; O2SAT 98; BMI 26.3
--- OUTSIDE RECORDS SUMMARY | 2025-08-10 15:09 | XMS_ITS | Encounter Summary ---
Author Organization [facility] Address [address] [place] [address] Phone Care Team Providers Care Welding Machine Operator Arc Name Role Phone Yasmin Castillo MD Primary Care Provider uJliann Esteban MD Unavailable Nancy Otoole RN Unavailable [email or web address] Laura Fox RN Unavailable [email or web address] Encounter Details Date Type Department Care Team (Late st Contact Info) Description 08/03/2025 Orders Only VIRTUAL DEPARTMENT [address] [place] [id number] [facility] [address] [place] [address] [email or web address] Social History Tobacco Use Types Packs/Day Years Used Date Smoking Tobacco: Never Smokeless Tobacco: Never Alcohol Use Standard Drinks/Week Comments Never 0 (1 standard drink = 0.6 oz pur e alcohol) Education Answer Date Recorded Are you interested in more education? Not on deandre e 03/08/2023 Are you concerned about learning? Not on file 03/08/2023 No 03/08/2023 No 03/08/2023 Digital Access Answer Date Recorded No 04/09/2023 No 04/09/2023 Reliable internet access at home? Not on file 04/09/2023 Device with a working camera? Not on file Comments Unknown Sex and Gender Information Value Date Recorded Sex Assigned at Female 01/25/2022 10:48 AM EDT Legal Sex Female 10:46 AM EDT Gender Identity Female 01/25/2022 10:48 AM EDT Sexual Orientation Straight 01/25/2022 10 :48 AM EDT documented as of this encounter Progress Notes * Hali Hooper [facility] - 08/03/2025 1:05 PM EDT Melva Christina Date: 08/03/25 Bevacizumab Plan Conversion: I have converted the Daphne Treatment Plan for Bevacizumab to a Therapy Plan for patient's non-oncologic diagnosis and routed the plan to the plan provider for review and signature. For next treatment, please use orders from the Therapy Plan. [x] Daphne Treatment Plan has been discontinued [] Daphne Treatment Plan will need to be discontinued after Therapy Plan orders are signed. Plan of care per most recent Hematology Note: Regimen name: Bevacizumab for HHT. Intent of therapy: disease control Treatment plan drugs, doses, route and schedule: Bevacizumab 5 mg/kg, infused over 30 min, with 500mL normal saline infused over 30 min prior to and after the bevacizumab, intermittently (every 8 weeks for now) Number of planned cycles before completion or intervention: Indefinite Consent: The patient has been consented for this regimen. Hali Hooper [facility] documented in this encounter Plan of Treatment Upcoming Encounters Date Type Department Care Team (Late st Contact Info) Description 09/13/2025 4:15 PM EST Blood Draw [facility] [address], 7th [address], [address] [place] [address] 09/13/2025 5:00 PM EST Infusion [address], 8[address], [address] [place] [address] Nancy Otoole, SABINA [address] [place] [address] 11/08/2025 4:15 PM EST Blood Draw [facility] [address], 7th Floor, [address] [place] [address] 11/08/2025 5:00 PM EST Infusion [facility] [address] [facility], 8th Floor, [address] [place] [address] Nancy Otoole RN [address] [place] [address] [email or web address] 11/22/2025 9:00 AM EST Telemedicine [facility] Center [facility] [address], 7th Floor, [address] [place] [address] Juliann Esteban MD [address] [facility] [address] [address] [place] [address] [email or web address] documented as of this encounter Visit Diagnoses Not on filedocumented in this encounter Care Teams Welding Machine Operator Arc Relationship Specialty Start Date End Date Yasmin Castillo MD [address] [place] [address] PCP - General Internal Medicine 01/25/22 Juliann Esteban MD [address] [facility] [address] [facility] [facility] [address] [place] [address] [email or web address] [email or web address] Provider Hematology and Oncology 01/07/24 Nancy Otoole RN [address] [place] [address] [email or web address] Primary Infusion Nurse 01/07/24 Laura Fox RN [address] [place] [address] [email or web address] Associate Infusion Nurse 03/03/24 documented as of this encounter Additional Source Comments The information contained in this document represents components of the legal health record. It is not the complete legal health record.[facility]
--- OUTSIDE RECORDS SUMMARY | 2025-08-10 15:09 | XMS_ITS | Encounter Summary ---
Author Organization [facility] Address [address] [place] [address] Phone Care Team Providers Care Wood Type Finisher Name Role Phone Yasmin Castillo MD Primary Care Provider Juliann Esteban MD Unavailable [phone] Nancy Otoole RN Unavailable [email or web address] Laura Fox RN Unavailable [email or web address] Encounter Details Date Type Department Care Team (Late st Contact Info) Description 08/03/2022 Documentation [facility] Center for [facility]ology [address] [place] [address], 7th Floor, [address] [place] [address] Hollie White RN [email or web address] Social History Tobacco Use Types Packs/Day Years Used Date Smoking Tobacco: Never Smokeless Tobacco: Never Alcohol Use Standard Drinks/Week Comments Never 0 (1 standard drink = 0.6 oz pur e alcohol) Comments Unknown Sex and Gender Information Value Date Recorded Sex Assigned at Female 01/25/2022 10:48 AM EDT Legal Sex Female 10:46 AM EDT Gender Identity Female 01/25/2022 10:48 AM EDT Sexual Orientation Straight 01/25/2022 10 :48 AM EDT documented as of this encounter Plan of Treatment Upcoming Encounters Date Type Department Care Team (Late st Contact Info) Description 09/13/2025 4:15 PM EST Blood Draw [facility] [address] [place] [address], 7th Floor, [address] [place] [address] 09/13/2025 5:00 PM EST Infusion [facility] [address], 8th [address], [address] [place] [address] Nancy Otoole RN [address] [place] [address] [email or web address] 11/08/2025 4:15 PM EST Blood Draw [facility] [address], 7th Floor, [address] [place] [address] 11/08/2025 5:00 PM EST Infusion [facility] [address], 8th Floor, [address] [place] [address] Nancy Otoole RN [address] [place] [address] [email or web address] 11/22/2025 9:00 AM EST Telemedicine [facility] [address], 7th Floor, [address] [place] [address] Juliann Esteban MD [address] [place] [id number] [email or web address] documented as of this encounter Procedures Procedure Name Priority Date/Time Associated Diagnosis Comments SARS-COV-2 (COVID-19) AG BINAXNOW Routine 07/28/2022 3:18 PM EDT documented in this encounter Results * (ABNORMAL) SARS-CoV-2 (COVID-19) Antigen (BinaxNOW) (07/28/2022 3:18 PM EDT) Source Nasal swab SARS-CoV-2 (COVID-19) antigen POSITIVE - Internal QCs acceptable(A ) NEGATIVE - Internal QCs acceptable 07/28/2022 3:18 PM EDT us Historical Provider POINT OF CARE TEST ORDERA BLES Final Result documented in this encounter Visit Diagnoses Not on filedocumented in this encounter Additional Health Concerns Infection Onset Date Last Indicated Resolved Time CoV-Presumed 07/28/2022 07/28/2022 08/18/2022 1:22 AM EDT documented as of this encounter Care Teams Wood Type Finisher Relationship Specialty Start Date End Date Yasmin Castillo MD [address] [address] PCP - General Internal Medicine 01/25/22 Juliann Esteban MD [address] [place] [id number] [email or web address] [email or web address] Provider Hematology and Oncology 01/07/24 Nancy Otoole RN [address] [place] [address] [email or web address] Primary Infusion Nurse 01/07/24 Laura Fox RN [address] [place] [address] [email or web address] Associate Infusion Nurse 03/03/24 documented as of this encounter Additional Source Comments The information contained in this document represents components of the legal health record. It is not the complete legal health record.[facility]
--- OUTSIDE RECORDS SUMMARY | 2025-08-10 15:09 | XMS_ITS | Clinical Summary ---
Author Organization [facility] Address [address] [facility] [address] [place] [phone] Phone Care Team Providers Care Apparel Designer Name Role Phone Yasmin Castillo MD Primary Care Provider Juliann Esteban MD Unavailable [phone] Nancy Otoole RN Unavailable ofelia Laura Fox RN Unavailable [email or web address] Allergies Active Allergy Reactions Criticality Noted Date Comments Coconut Hives,Itching 04/18/2022 Iodine Shortness Of Breath,Swelling High 04/18/2022 Shellfish Containing Products Bronchospasm 04/18/2022 Medications magnesium carb,citrate,ox maricruz (MAGNESIUM COMPLEX) 300 mg magnesium Tab Active b complex vitamins capsule Active cholecalciferol (VITAMIN D3) 2,000 unit capsule Active hydroCHLOROthia zide (HYDRODIURIL) 25 MG tablet Active hyoscyamine (LEVBID) 0.375 mg 12 hr tablet Take 0.375 mg by mouth. 07/19/2022 Active montelukast (SINGULAIR) 10 mg tablet Take 10 mg by mouth. 07/19/2022 Active fexofenadine (SHANA) 180 MG tabletIndicatio ns:Infusion reaction, initial encounter Take 2 tablets (360 mg total) by mouth as needed. Take on the morning the day of Avastin (bevacizumab) infusion prior to infusion. 32 tablet 1 01/29/2024 Active potassium chloride SA (KLOR-CON M20) 20 MEQ ER tabletIndicatio ns:Hypokalemia Take 1 tablet (20 mEq total) by mouth 2 (two) times a day. 6 tablet 1 06/12/2024 Active Active Problems Patient Care Coordination No te Formatting of this note migh t be different from the original. Off label Bevacizumab consent and initiation note by Dr. Esteban on 07/06/24 Pt with HHT. Filter all IVs. 10/11/22 PA submitted to [facility] via cm for pomalyst Compassionate use On 10/11/22 Insurance can take up to 72 hours to respond Jonnie MUHAMMAD 10/15/22 pa still pending [place]: [id number] - CARRIE Status Sent to Plan on October 11 Drug Pomalyst 4MG capsules 10/16 [facility] denial of pomalyst today. 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 Receiving bevacizumab first dose today. She should now receive hematologic support per the HSP. Per the protocol, she will require the following: Red cell transfusion: 1 unit for Hgb <=8.5 g/dL 2 units for Hgb <=7.5 g/dL 3 units for Hgb <=6.5 g/dL 4 units for Hgb <=5.5 g/dL Iron infusion: 400-600 mg elemental iron (not more or less than this) for transferrin saturation <20% or ferritin <50 ng/mL. She receives IV iron at outside hospital locally HHT Liver AVMs. Oral telangiectasias. Received IV iron at local outside hospital yesterday in the form of Feraheme x 1 with good tolerance. Hemoglobin 13.2 with hematocrit of 38.8. MCV normal at 89.2. RDW normal at 13.3. Today's iron studies are pending. She is status post 1 dose of Feraheme yesterday. Plan: -- Continue with protocol 19-833 -- ESS completed -- Labs reviewed -- Receives IV Feraheme at [facility] per her local perioperative tech. -- Day 1 bevacizumab today. External hemorrhoids. Recommended Anusol suppositories and topical. Tucks as needed. Follow bowel regimen Assessment & Plan (10/06/2022 8:43 AM EST): Melva Christina is a 51 y.o. female with a history of HHT who presents for end of study visit on protocol . COVID-19 infection with severe symptoms though now significant improvement. Off study drug for 1 month. Hemoglobin 11.3. Iron studies not done however results from last month show iron deficiency. Patient wishes to hold off on intravenous iron until November when she has a new insurance carrier which will authorize IV iron. She declines Venofer. Plan: --Completed study protocol --ESS completed --Labs reviewed --Wishes to initiate prescription for compassionate use. --She will schedule IV iron at [facility] per her local perioperative tech in November 2022 when she has a new insurance carrier. -- Prescription for Pomalyst 4 mg sent to pharmacy Assessment & Plan (08/08/2022 10:01 AM EDT): Melva Christina is a 51 y.o. female with a history of HHT who presents for study protocol visit while on protocol . COVID-19 infection with severe symptoms though improving. Tolerating study agent well with no reported side effects. Constipation nausea resolved. Hemoglobin improved to 12.1 with an ANC of 2.6. Ferritin 10 with an iron level of 34. Iron saturation 10%. LFTs normal. Negative test. Plan: --Continue study drug 4 mg daily --ESS completed --Labs reviewed --Follow-up per study protocol --She will schedule IV iron at [facility] per her local perioperative tech Toxicity profile: Grade 1 mild constipation, likely study drug related, now resolved. Assessment & Plan (07/11/2022 9:51 AM EDT): Melva Christina is a 51 y.o. female with a history of HHT who presents for study protocol visit while on protocol . Tolerating study agent well with no reported side effects. Constipation nausea resolved. Off study drug for approximately 10 days for numbness in the hands and wrists. Diagnosed with carpal tunnel syndrome. Not drug related. Hemoglobin 11.9, ANC 2.5, ferritin 14, iron 43, iron saturation 12%. Negative test. 1 pill left. Plan: --Continue study drug 4 mg daily --ESS completed --Labs reviewed --Follow-up per study protocol -- We will schedule V iron at [facility] per her local perioperative tech Toxicity profile: Grade 1 mild constipation, likely study drug related, now resolved. Assessment & Plan (05/16/2022 10:24 AM EDT): Melva Christina is a 51 y.o. female with a history of HHT who presents for study protocol visit while on protocol . She has been on study agent for 8 weeks. Tolerating study agent well with reported mild constipation. Nausea resolved Plan: --Continue study drug 4 mg daily --ESS completed --Labs reviewed --Follow-up per study protocol --IV iron as needed at [facility] per her local perioperative tech Toxicity profile: Grade 1 mild constipation, likely study drug related. Assessment & Plan (04/18/2022 9:33 AM EDT): Melva Christina is a 51 y.o. female with a history of HHT who presents for study protocol visit while on protocol . She has been on study agent for 3 weeks and had held for 1 additional week setting of thyroid biopsy. Tolerating study agent well with mild nausea in the morning. Noted decrease in frequency and duration of nosebleeds. Melva will continue on pomalidomide or placebo 4 mg today. We reviewed the potential side-effects of pomalidomide again today, including the potential for serious/fatal blood clots. Plan: --Continue study drug 4 mg daily --Recommend increase in water when taking study agent to reduce nausea --If ineffective, may start low-dose Pepcid 10 mg. -- ESS completed --Labs reviewed --Follow-up per study protocol --IV iron as needed at [facility] per her perioperative tech Asthma 04/18/2022 Hypertension 04/18/2022 IBS (irritable bowel syndrome) 04/18/2022 Encounters Date Type Department Care Team Description 08/03/2025 Orders Only VIRTUAL DEPARTMENT [address] [place] [id number] Hali Hooper [facility] 06/22/[address] [facility] [address] [facility], 7th Floor, [address] [place] [address] Juliann Esteban MD 05/11/2025 11:[address] [facility] [address] [facility], 7th Floor, [address] [place] [address] Juliann Esteban MD HHT (hereditary hemorrhagic telangiectasia) (Primary Dx); Iron deficiency anemia secondary to blood loss (chronic) 05/11/2025 8:53 AM EDT - 05/11/2025 11:59 PM EDT Hospital Encounter [facility] [address] [place] [address] Juliann Esteban MD Discharge Disposition: Home or Self Care from Last 3 Months Social History Tobacco Use Types Packs/Day Years [...] Orientation Straight 01/25/2022 10 :48 AM EDT Last Filed Vital Signs Vital Sign Reading Time Taken Comments Blood Pressure 138/83 08/31/2024 11:37 AM EDT Pulse 71 08/31/2024 11:37 AM EDT Temperature 36.2 C (97.2 F) 08/31/2024 11:37 AM EDT Respiratory Rate 16 08/31/2024 11:3 7 AM EDT Oxygen Saturation 98% 08/31/2024 11: 37 AM EDT Inhaled Oxygen Concentration - - Weight 63.4 kg (139 lb 12.8 oz) 024 11:37 AM EDT Height 155 cm (5' 1.02 ) 08/31/2024 11: 37 AM EDT Body Mass Index 26.39 08/31/2024 11:37 AM EDT Plan of Treatment Upcoming Encounters Date Type Department Care Team (Late st Contact Info) Description 09/13/2025 4:[address] [facility] [address] [place] [address], 7th Floor, [address] [place] [address] 09/13/2025 5:00 PM EST Infusion [address], 8th [address], [address] [place] [address] Nancy Otoole RN [address] [place] [address] [email or web address] 11/08/2025 4:15 PM EST [address] [facility] [address] [place] [address], 7th Floor, [address] [place] [address] 11/08/2025 5:00 PM EST Infusion [address], 8th [address], [address] [place] [address] Nancy Otoole RN [address] [place] [address] 11/22/2025 9:[address] [facility] [address] [place] [address], 7th Floor, [address] [place] [address] Juliann Esteban MD [address] [address] [email or web address] Health Maintenance Due Date Last Done Comments LIPID PANEL 1969 DEPRESSION SCREENING 1981 HEPATITIS C SCREENING 1987 HIV ONE-TIME SCREENING (18-65 YEARS) 1987 PNEUMOCOCCAL VACCINES (50+ years) (1 of 2 - PCV) 1988 PAP SMEAR 1990 MAMMOGRAM 2009 COLOGUARD 2014 COLONOSCOPY 2014 COLORECTAL CANCER SCREENING 2014 FIT TEST 2014 FOBT 2014 SIGMOIDOSCOPY 2014 VIRTUAL COLONOSCOPY 2014 ZOSTER VACCINES (1 of 2) 2019 BLOOD PRESSURE 03/01/2025 08/31/2024 INFLUENZA VACCINE (#1) 2025 COVID-19 VACCINE (3 - 2024- season) 2025 04/13/2021, 03/25/2021 POTASSIUM LEVEL 05/11/2026 05/11/2025, 08/12, 07/06/2024, Additional history exists SCREENING FOR DIABETES 05/11/2028 05/11/2025 Adult Td,Tdap Booster 11/19/2028 11/19/2018, 018 SMOKING STATUS SCREENING (Once After 26 Yrs) Completed 08/08/2022 HEPATITIS A VACCINES Aged Out No long er eligible based on patient's age to complete this topic HIB VACCINES Aged Out No longer eligi ble based on patient's age to complete this topic MENINGOCOCCAL VACCINES (ACWY) Aged Out No longer eligible based on patient's age to complete this topic MENINGOCOCCAL VACCINES (B) Aged Out N o longer eligible based on patient's age to complete this topic Medical Devices Not on file Procedures Procedure Name Priority Date/Time Associated Diagnosis Comments URINE SEDIMENT Routine 05/11/2025 9:22 AM EDT URINALYSIS Routine 05/11/2025 9:22 AM EDT HHT (hereditary hemorrhagic telangiectasia) IRON AND IRON BINDING CAPACITY Routine 05/11/2025 9:13 AM EDT HHT (hereditary hemorrhagic telangiectasia) FERRITIN Routine 05/11/2025 9:13 AM EDT HHT (hereditary hemorrhagic telangiectasia) COMPREHENSIVE METABOLIC PANEL Routine 05/11/2025 9:13 AM EDT HHT (hereditary hemorrhagic telangiectasia) RETICULOCYTES Routine 05/11/2025 9:13 AM EDT HHT (hereditary hemorrhagic telangiectasia) CBC AND DIFFERENTIAL Routine 05/11/2025 9:13 AM EDT HHT (hereditary hemorrhagic telangiectasia) PHOSPHORUS Routine 05/11/2025 9:13 AM EDT HHT (hereditary hemorrhagic telangiectasia) LDH Routine 05/11/2025 9:13 AM EDT HHT (hereditary hemorrhagic telangiectasia) from Last 3 Months Results * (ABNORMAL) Urine sediment (05/11/2025 9:22 AM EDT) WBC 0-4(A) NONE SEEN /hpf [facility] RBC 3-5(A) NONE SEEN /hpf [facility] URINE EPITHELIAL 0-4(A) NONE SEEN [facility] MUCUS Trace(A) NONE SEEN /hpf [facility] BACTERIA Trace(A) NONE SEEN /hpf [facility] 05/11/2025 9:22 AM EDT 05/11/2025 9:23 AM EDT us Juliann Esteban MD URINE ORDERABLES Final Resul t [address] [address] * (ABNORMAL) Urinalysis (05/11/2025 9:22 AM EDT) COLOR Yellow Yellow [facility] CLARITY Clear [facility] GLUCOSE Negative Negative [facility] BILI Negative Negative [facility] KETONES Negative Negative [facility] SPECIFIC GRAVITY 1.010 1.005 - 1.030 [facility] BLOOD 1+(A) Negative [facility] PH 6.0 5.0 - 8.0 [facility] Protein-UA Negative Negative [facility] NITRITE Negative Negative [facility] Leukocyte esterase, ur Negative Negative [facility] Urine (Urine) 05/11/2025 9:2 2 AM EDT 05/11/2025 9:23 AM EDT Juliann Esteban MD URINE ORDERABLES Final Resul t Performing Organization Address [facility] Co de Phone Number [address] [address] * (ABNORMAL) Reticulocytes (05/11/2025 9:13 AM EDT) RETIC (%) 1.8 0.7 - 2.5 % [facility] RETIC (ABSOLUTE) 0.0899(H) 0.0164 - 0.0776 M/uL [facility] RETIC HGB EQUIV 35.00 26.7 - 35.5 pg [facility] Retics, immature(%) 10.5 3.0 - 15.9 % [facility] Blood 05/11/2025 9:13 AM EDT 05/11/2025 9:17 AM EDT Juliann Esteban MD LAB BLOOD ORDERABLES Final R esult Performing Organization Address [facility] Co de Phone Number [address] [phone] * LDH (05/11/2025 9:13 AM EDT) LDH 204 118 - 273 U/L [facility] Blood 05/11/2025 9:13 AM EDT 05/11/2025 9:17 AM EDT Juliann Esteban MD LAB BLOOD ORDERABLES Final R esult Performing Organization Address [facility] Co de Phone Number [address] [address] * (ABNORMAL) Comprehensive metabolic panel (05/11/2025 9:13 AM EDT) SODIUM 140 133 - 146 mmol/L [facility] POTASSIUM 3.3 3.3 - 5.1 mmol/L [facility] CHLORIDE 101 96 - 108 mmol/L [facility] CO2 25 21 - 35 mmol/L [facility] BUN 13 6 - 19 mg/dL [facility] CREATININE 0.70 0.5 - 1.5 mg/dL [facility] GLUCOSE 88 70 - 99 mg/dL [facility] ALBUMIN 4.0 3.9 - 4.8 g/dL [facility] TOTAL PROTEIN 7.6 6.5 - 8.0 g/dL [facility] CALCIUM 10.2 8.4 - 10.3 mg/dL [facility] ALKALINE PHOSPHATASE 121(H) 39 - 117 U/L [facility] TOTAL BILIRUBIN <0.2 0.0 - 1.2 mg/dL [facility] AST 28 0 - 37 U/L [facility] ALT 22 0 - 40 U/L [facility] GLOBULIN 3.6 1 - 4.8 g/dL [facility] EGFR 102 >59 mL/min/1.7 3m2 [facility] Comment:Estimated glomerular filtration rate calculated using the CKD-EPI refit equation. ANION GAP 17 10 - 20 mmol/L [facility] Blood 05/11/2025 9:13 AM EDT 05/11/2025 9:17 AM EDT Juliann Esteban MD LAB BLOOD ORDERABLES Final R esult Performing Organization Address City/State/[facility] Co de Phone Number [facility] [address] [place], [place] [id number] * Iron and iron binding capacity (05/11/2025 9:13 AM EDT) IRON 58 30 - 160 ug/dL [facility] IRON BINDING CAPACITY 287 228 - 428 ug/dL [facility] TRANSFERRIN SATURAT. 20 15 - 50 % [facility] Blood 05/11/2025 9:13 AM EDT 05/11/2025 9:17 AM EDT Juliann Esteban MD LAB BLOOD ORDERABLES Final R esult [facility] [address] [place] [address] * CBC and differential (05/11/2025 9:13 AM EDT) WBC 5.56 4.00 - 11.00 K/uL [facility] RBC 5.05 4.00 - 5.20 M/uL [facility] HGB 14.9 12.0 - 16.0 g/dL [facility] HCT 44.1 36.0 - 46.0 % [facility] PLT 278 150 - 450 K/uL [facility] MCV 87.3 80.0 - 100.0 fL [facility] MCH 29.5 27.0 - 31.0 pg [facility] MCHC 33.8 32.0 - 36.0 g/dL [facility] RDW 12.6 11.5 - 14.5 % [facility] MPV 9.3 8.4 - 12.0 fL [facility] NRBC 0.00 0.00 /100 WBCs [facility] ABSOLUTE NRBC 0.00 0.00 K/uL [facility] DIFF METHOD Auto [facility] NEUTS 60.5 48.0 - 76.0 % [facility] LYMPHS 28.6 18.0 - 41.0 % [facility] MONOS 7.6 4.0 - 11.0 % [facility] EOS 2.2 0.0 - 5.0 % [facility] BASOS 0.9 0.0 - 1.5 % [facility] Granulocytes, immature (%) 0.2 0.0 - 0.9 % [facility] ABSOLUTE NEUTS 3.37 1.92 - 7.60 K/uL [facility] ABSOLUTE LYMPHS 1.59 0.72 - 4.10 K/uL [facility] ABSOLUTE MONOS 0.42 0.16 - 1.10 K/uL [facility] ABSOLUTE EOS 0.12 0.00 - 0.50 K/uL [facility] ABSOLUTE BASOS 0.05 0.00 - 0.15 K/uL [facility] Granulocytes, immature 0.01 0.00 - 0.09 K/uL [facility] Blood 05/11/2025 9:13 AM EDT 05/11/2025 9:17 AM EDT us Juliann Esteban MD LAB BLOOD ORDERABLES Final R esult [address] [address] * Phosphorus (05/11/2025 9:13 AM EDT) PHOSPHORUS 4.1 2.7 - 4.5 mg/dL [facility] Blood 05/11/2025 9:13 AM EDT 05/11/2025 9:17 AM EDT Juliann Esteban MD LAB BLOOD ORDERABLES Final R esult Performing Organization Address [facility] Co de Phone Number [address] [address] * Ferritin (05/11/2025 9:13 AM EDT) FERRITIN 61 13 - 150 ug/L [facility] Blood 05/11/2025 9:13 AM EDT 05/11/2025 9:17 AM EDT Juliann Esteban MD LAB BLOOD ORDERABLES Final R esult Performing Organization Address City/[facility] Co de Phone Number [address] [address] from Last 3 Months Insurance [employer]MIN[employer] [facility] ADMINISTRATORS tado ADMINISTRATORS [employer] ADMINISTRAT[employer] [facility] ADMINISTRATORS [employer] ADMINISTRATORS [employer]MINISTRAT[employer] [facility] ADMINISTRATORS [employer]MINISTRATORS Care Teams Apparel Designer Relationship Specialty Start Date End Date Yasmin Castillo MD 1962 [facility] [address] [place] PCP - General Internal Medicine 01/25/22 Juliann Esteban MD [address] [place] [address] [email or web address] Consulting Provider Hematology and Oncology 01/07/24 Nancy Otoole, RN [address] [place] [address] [email or web address] Primary Infusion Nurse 01/07/24 Laura Fox, SABINA [address] [place] [address] [email or web address] Associate Infusion Nurse 03/03/24 Additional Source Comments The information contained in this document represents components of the legal health record. It is not the complete legal health record.[facility]
--- OUTSIDE RECORDS SUMMARY | 2025-08-10 15:09 | XMS_ITS | Encounter Summary ---
Author Organization [facility] Address [address] [facility] [address] [place] [address] Phone Care Team Providers Care Pediatric Care Coordinator Name Role Phone Yasmin Castillo MD Primary Care Provider Juliann Esteban MD Unavailable [phone] Nancy Otoole RN Unavailable [email or web address] Laura Fox RN Unavailable [email or web address] Encounter Details Date Type Department Care Team (Late st Contact Info) Description 05/16/2022 Documentation [facility] Center for Hematology [address] [place] [address], 7th Floor, [address] [place] [address] Hollie White RN [email or web address] Social History Tobacco Use Types [...] 09/13/2025 4:15 PM EST Blood Draw [facility] for H[facility]ology [address] [place] [address], 7th Floor, [address] [place] [address] 09/13/2025 5:00 PM EST Infusion [facility] [address] [facility], 8th Floor, [address] [place] [address] Nancy Otoole RN [address] [place] [address] [email or web address] 11/08/2025 4:15 PM EST Blood Draw [facility] Center for Hematology [address] [facility], 7th Floor, [address] [place] [address] 11/08/2025 5:00 PM EST Infusion [address], 8th [address], [address] [place] [address] Nancy Otoole RN [address] [place] [address] [email or web address] 11/22/2025 9:00 AM EST Telemedicine [facility] Center for Hematology [address] [place] [address], 7th Floor, [address] [place] [address] Juliann Esteban MD [address] [place] [phone] [email or web address] documented as of this encounter Visit Diagnoses Not on filedocumented in this encounter Additional Health Concerns Infection Onset Date Last Indicated Resolved Time CoV-Presumed 07/28/2022 07/28/2022 08/18/2022 1:22 AM EDT documented as of this encounter Care Teams Pediatric Care Coordinator Relationship Specialty Start Date End Date Yasmin Castillo MD [address] [facility] [place] [address] PCP - General Internal Medicine 01/25/22 Juliann Esteban MD [address] [place] [phone] [email or web address] Consulting Provider Hematology and Oncology 01/07/24 Nancy Otoole RN [address] [place] [address] [email or web address] Primary Infusion Nurse 01/07/24 Laura Fox, SABINA [address] [place] [address] [email or web address] Associate Infusion Nurse 03/03/24 documented as of this encounter Additional Source Comments The information contained in this document represents components of the legal health record. It is not the complete legal health record.[facility]
== END 2025-08-10 14:18 | disposition home or self-care (01) ==
LOC: HO.ENCR 13:51
PROVIDERS: PCP Internal Medicine; Visit Provider Student in an Organized Health Care Education/Training Program
DX: E03.9 Hypothyroidism, unspecified (principal)
CPT/HCPCS: 99213

== ENCOUNTER 2025-08-24 11:03 | Outpatient (AMB) | payer OTHER, SELFPAY ==
--- NOTE | 2025-08-24 11:34 | MHC.PC.OV ---
Vital Signs 08/24/25 11:36 Height 5 ft 2 in Weight 146 lb BMI 26.7 BP 134/80 Blood Pressure Location Lt brachial Position Sitting Respiration 16 Pulse 93 Pulse Source Pulse Oximeter Temp 98.0 F Temp Source Oral Pulse Oximetry (%) 98 Oxygen Delivery Method Room Air Intake Visit Reasons: follow up as per Dr Leonardo for hypokalemia Intake Note: Pt is here today f/u hypokalemia per Dr. 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 Chief Required: No Allergies iodine (IODINE) Allergy (Severe, Verified 08/29/25 18:30) ANAPHYLAXIS shellfish derived (SHELLFISH DERIVED) Allergy (Severe, Verified 08/29/25 18:30) ANAPHYLAXIS oxycodone Allergy (Mild, Verified 08/29/25 18:30) Itching Sulfa (Sulfonamide Antibiotics) Allergy (Mild, Verified 08/29/25 18:30) Diarrhea coconut Adverse Reaction (Unknown, Uncoded 08/29/25 18:30) sensativity Medication List - Last Reconciled 08/24/25 by Yasmin Castillo MD albuterol sulfate 90 mcg/actuation 2 inhalations inhalation Q6H PRN albuterol sulfate 2.5 mg (3 mL) inhalation Q6H PRN bevacizumab (Avastin) IV Q6W cholecalciferol (vitamin D3) 50 mcg PO DAILY estradiol mcg vaginal estradiol 1 patch topical 2XW hyoscyamine sulfate ER 0.375 mg PO DAILY 90 days nebulizers use as directed every 6 hours as needed for bronchospasm potassium chloride 20 mEq PO BID 7 days progesterone micronized 100 mg PO BEDTIME Synthroid (levothyroxine) 100 mcg PO DAILY NS Tobacco use date assessed: 08/24/25 Dental Screening Dental Screen Date: 08/24/25 Did you have a dental visit in the last 12 months?: Yes Did you have a dental problem in the last 6 months where you did not have access to dental care?: No Was dental information given to patient?: Patient has dentist HPI follow up as per Dr Leonardo for hypokalemia HPI Details The patient is a 54-year-old female here today for follow-up regarding hypokalemic episodes. Has been having diarrhea began without a clear inciting event, not associated with any dietary changes or illness in close contacts. The stools were described as soft and sometimes watery, leading to fatigue and weakness. Stools lately are starting to become formed The patient has a history of hypothyroidism, which has been managed with levothyroxine. Recently, the dosage was adjusted to 100 mcg due to abnormal thyroid function tests, and the patient reports persistent fatigue despite this adjustment. Hypertension is another chronic condition for which the patient is being monitored. The patient noted a slight increase in blood pressure and associated symptoms of swelling, possibly related to medication adjustments. [facility] Medical History Brain fog Depression Dyspareunia in female Left medial knee pain Lumbago Post-surgical hypothyroidism Fatigue Hypothyroidism Symptomatic premature menopause Thyroid nodule greater than or equal to 1.5 cm in diameter incidentally noted on imaging study Intermittent lightheadedness Anxiety and depression Arthralgia of both hands Migraine Chronic rhinitis Vitamin D deficiency Recurrent sinusitis Environmental and seasonal allergies IBS (irritable bowel syndrome) Mild intermittent asthma Essential hypertension Hereditary hemorrhagic telangiectasia Surgical History Hx of thyroidectomy History of biopsy Hx of colonoscopy S/P correction of deviated nasal septum H/O umbilical hernia repair Hx of cholecystectomy Family History Father Prostate cancer Diabetes mellitus Hereditary hemorrhagic telangiectasia PTSD (post-traumatic stress disorder) Essential hypertension Substance use disorder Mental health disorder Mother Osteoporosis Ovarian cancer Brother Hereditary hemorrhagic telangiectasia Essential hypertension IBS (irritable bowel syndrome) Daughter Substance use disorder Mental health disorder Social History Household Members: Spouse Housing: House Alcohol intake: former Patient Tobacco Use Status: Never used Tobacco e-Cigarette/Vaping Use: Never Used service: No Current occupational status: employed 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 1. Little interest or pleasure in doing things: not at all 2. Feeling down, depressed, or hopeless: not at all 3. Trouble falling or staying asleep, or sleeping too much: not at all 4. Feeling tired or having little energy: not at all 5. Poor appetite or overeating: not at all 6. Feeling bad about yourself - or that you are a failure or have let yourself or your family down: not at all 7. Trouble concentrating on things, such as reading the newspaper or watching television: not at all 8. Moving or speaking so slowly that other people could have noticed. Or the opposite - being so fidgety or restless that you have been moving around a lot more than usual: not at all 9. Thoughts that you would be better off or of hurting yourself in some way: not at all Total score: 0 Depression Screening Interpretation: Negative Depression Screening Done: Yes Source: Developed by Drs. Magan Sullivan, Evita Otoole, Holger Cabrera and colleagues, with an educational matt from [employer]. Thrive Questionnaire Date Thrive assessed: 12/02/24 I am a: Patient What is your living situation today?: I have a steady place to live Within the past 12 months, did the food you bought not last and you didn't have the money to get more?: Never true Within the past 12 months, did you worry whether your food would run out before you got money to buy more?: Never true Do you have trouble paying for medicines?: No Do you have trouble getting transportation to medical appointments?: No Do you have trouble paying your heating and electricity bill?: No Do you have trouble taking care of your child, family member or friend?: No Do you have trouble with day-to-day activities such as bathing, preparing meals, shopping, managing finances, etc.?: No Are you currently unemployed and looking for a job?: No Are you interested in more education?: No Please select the resources that you would like help with: None THRIVE Score: 0 AUDIT C Alcohol Use Questionnaire (AUDIT-C) 1. How often do you have a drink containing alcohol?: Never Total Score: 0 VANESSA-7 AMB Questionnaire VANESSA-7 Date VANESSA - 7 assessed: 12/02/24 Feeling nervous, anxious, or on edge: 0 = Not at all Not being able to stop or control worryin = Not at all Worrying too much about different things: 0 = Not at all Trouble relaxin = Not at all Being so restless that it is hard to sit still: 0 = Not at all Becoming easily annoyed or irritable: 0 = Not at all Feeling afraid as if something awful might happen: 0 = Not at all Total VANESSA-7 score (0-4 normal; 5-9 mild; 10-14 moderate; 15-21 severe): 0 Source: Developed by Drs. Magan Sullivan, Evita Otoole, Holger Cabrera and colleagues, with an educational matt from [employer]. Review of Systems Const All systems reviewed & are unremarkable except as noted in HPI and below ENT Reports no additional complaints Card Reports no additional complaints Resp Reports no additional complaints GI Reports as per HPI Reports no additional complaints Musc Reports arthralgias, Reports joint swelling and Reports stiffness Neuro Reports no additional complaints Ankit/Lymph Reports no additional complaints Physical exam (Primary Care) Vital Signs: Last Vital Signs Temp 98.0 F 08/24/25 11:36 Pulse 93 08/24/25 11:36 Resp 16 08/24/25 11:36 BP 134/80 08/24/25 11:36 Pulse Ox 98 08/24/25 11:36 Oxygen Delivery Method Room Air 08/24/25 11:36 BMI result Body Mass Index 26.7 Tobacco/Smoking Status: Tobacco use Status Tobacco use date assessed 08/24/25 08/24/25 11:37 Patient Tobacco Use Status Never used Tobacco 08/24/25 11:37 e-Cigarette/Vaping Use Never Used 08/24/25 11:37 PHQ-9: PHQ-9 Score PHQ-9: Total score 0 08/24/25 12:23 Depression Screening Interpretation: Negative Thrive Assessment: Date of Thrive Assessment Date Thrive assessed 12/02/24 08/24/25 11:37 Const General: no acute distress and alert Orientation/consciousness: patient oriented x3 HENMT General nose exam: Normal external nose present Face and sinus: Yes face symmetric Mouth: oropharynx normal and moist mucous membranes Eyes General: appearance normal, both eyes and all related structures Neck Neck: Yes full ROM Lymphatic: no lymphadenopathy noted Resp Effort & Inspection: normal respiratory effort and able to speak in complete sentences Auscultation: clear to auscultation bilaterally Cardio Rate: regular rate Rhythm: regular rhythm Heart sounds: S1 normal heart sound present and S2 normal heart sound present GI Palpation (GI): Soft to palpation, nontender and no masses Auscultation: normal bowel sounds General: Yes no CVA tenderness Back/Spine/Pelvis Back: no CVA tenderness and No back tenderness Skin General skin exam: no rashes or lesions noted Neuro General: patient oriented x3, gait normal, tone normal, moves all extremities, Normal light touch and pain sensation and no focal motor deficits Extrem General: Yes full ROM, Yes no joint enlargement, Yes no clubbing, cyanosis or edema, Yes no calf tenderness and Yes normal gait Psych Affect: normal affect Coding Level of Care Code Est Pt Level 4 (85495) Diagnoses Hypokalemia E87.6 Post-surgical hypothyroidism E89.0 Vitamin D deficiency E55.9 Assessment & Plan Assessment & Plan (1) Hypokalemia: Code(s): E87.6 - Hypokalemia Plan: Noted to be hypokalemic on previous lab draw. Currently taking potassium chloride 40 mEq twice a day for 7 days. Ordered a repeat basic metabolic panel (2) Post-surgical hypothyroidism: Code(s): E89.0 - Postprocedural hypothyroidism Category: Medical Plan: TSH, with free T4 ordered currently taking Synthroid 100 mcg daily (3) Vitamin D deficiency: Code(s): E55.9 - Vitamin D deficiency, unspecified Category: Medical Plan: Continue taking vitamin-D 350 mcg daily, will check another vitamin-D level Orders: Orders Complete Blood Count Auto Diff 08/25/25 E28.319 - Asymptomatic premature menopause, E55.9 - Vitamin D deficiency, unspecified, E89.0 - Postprocedural hypothyroidism, I10 - Essential (primary) hypertension, I78.0 - Hereditary hemorrhagic telangiectasia Thyroid Stimulating Hormone 08/25/25 E28.319 - Asymptomatic premature menopause, E55.9 - Vitamin D deficiency, unspecified, E89.0 - Postprocedural hypothyroidism, I10 - Essential (primary) hypertension, I78.0 - Hereditary hemorrhagic telangiectasia Lipid Panel 08/25/25 E28.319 - Asymptomatic premature menopause, E55.9 - Vitamin D deficiency, unspecified, E89.0 - Postprocedural hypothyroidism, I10 - Essential (primary) hypertension, I78.0 - Hereditary hemorrhagic telangiectasia Alanine Aminotransferase 08/25/25 E28.319 - Asymptomatic premature menopause, E55.9 - Vitamin D deficiency, unspecified, E89.0 - Postprocedural hypothyroidism, I10 - Essential (primary) hypertension, I78.0 - Hereditary hemorrhagic telangiectasia Aspartate Amino Transferase 08/25/25 E28.319 - Asymptomatic premature menopause, E55.9 - Vitamin D deficiency, unspecified, E89.0 - Postprocedural hypothyroidism, I10 - Essential (primary) hypertension, I78.0 - Hereditary hemorrhagic telangiectasia Basic Metabolic Panel Fasting 08/25/25 E28.319 - Asymptomatic premature menopause, E55.9 - Vitamin D deficiency, unspecified, E89.0 - Postprocedural hypothyroidism, I10 - Essential (primary) hypertension, I78.0 - Hereditary hemorrhagic telangiectasia Free T4 (Free Thyroxine) 08/25/25 E28.319 - Asymptomatic premature menopause, E55.9 - Vitamin D deficiency, unspecified, E89.0 - Postprocedural hypothyroidism, I10 - Essential (primary) hypertension, I78.0 - Hereditary hemorrhagic telangiectasia Vitamin D 25-OH Total 08/25/25 E28.319 - Asymptomatic premature menopause, E55.9 - Vitamin D deficiency, unspecified, E89.0 - Postprocedural hypothyroidism, I10 - Essential (primary) hypertension, I78.0 - Hereditary hemorrhagic telangiectasia
[2025-08-24 11:36] VITALS: BP 134/80; PULSE 93; RESP 16; TEMP 36.7; O2SAT 98; BMI 26.7
--- OUTSIDE RECORDS SUMMARY | 2025-08-24 13:21 | XMS_ITS | Encounter Summary ---
Author Organization [facility] Address [address] [facility] [address] [place] [phone] Phone Care Team Providers Care Juvenile Officer Name Role Phone Yasmin Castillo MD Primary Care Provider Juliann Esetban MD Unavailable Nancy Otoole RN Unavailable [email or web address] Laura Fox RN Unavailable [email or web address] Encounter Details Date Type Department Care Team (Late st Contact Info) Description 05/16/2022 Documentation [facility] [address] [place] [address], 7th Floor, [address] [place] [address] Hollie White RN [email or web address] Social History Tobacco Use Types Packs/Day Years [...] Description 09/13/2025 4:15 PM EST Blood Draw [facility] [address] [place] [address], 7th Floor, [address] [place] [address] 09/13/2025 5:00 PM EST Infusion [facility] [address] [facility], 8th Floor, [address] [place] [address] Nancy Otoole RN [address] [place] [phone] [email or web address] 11/08/2025 4:15 PM EST Blood Draw [facility] [address] [facility], 7th Floor, [address] [place] [address] 11/08/2025 5:00 PM EST Infusion [address], 8th Floor, [address] [place] [address] Nancy tOoole RN [address] [place] [address] [email or web address] 11/22/2025 9:00 AM EST Telemedicine [facility] [address] [place] [address], 7th Floor, [address] [place] [address] Juliann Esteban MD [address] [place] [phone] [email or web address] documented as of this encounter Visit Diagnoses Not on filedocumented in this encounter Additional Health Concerns Infection Onset Date Last Indicated Resolved Time CoV-Presumed 07/28/2022 07/28/2022 08/18/2022 1:22 AM EDT documented as of this encounter Care Teams Juvenile Officer Relationship Specialty Start Date End Date Yasmin Castillo MD [address] [place] [address] PCP - General Internal Medicine 01/25/22 Juliann Esteban MD [address] [place] [id number] [email or web address] Consulting Provider Hematology and Oncology 01/07/24 Nancy Otoole RN [address] [place] [address] [email or web address] Primary Infusion Nurse 01/07/24 Laura Fox, SABINA [address] [place] [phone] [email or web address] Associate Infusion Nurse 03/03/24 documented as of this encounter Additional Source Comments The information contained in this document represents components of the legal health record. It is not the complete legal health record.[facility]
--- OUTSIDE RECORDS SUMMARY | 2025-08-24 13:21 | XMS_ITS | Encounter Summary ---
Author Organization [facility] Address [address] [facility] [address] [place] [address] Phone Care Team Providers Care Neuro Ophthalmologist Name Role Phone Yasmin Castillo MD Primary Care Provider Jluiann Esteban MD Unavailable [phone] Nancy Otoole RN Unavailable [email or web address] Laura Fox RN Unavailable [email or web address] Encounter Details Date Type Department Care Team (Late st Contact Info) Description 08/03/2022 Documentation [facility] [address] [place] [address], 7th Floor, [address] [place] [address] Hollie White RN [email or web address] Social History Tobacco Use Types [...] Description 09/13/2025 4:15 PM EST Blood Draw [facility] [address] [place] [address], 7th Floor, [address] [place] [address] 09/13/2025 5:00 PM EST Infusion [facility] [address] [facility] [facility], 8th Floor, [address] [place] [address] Nancy Otoole RN [address] [place] [address] [email or web address] 11/08/2025 4:15 PM EST Blood Draw [facility] [address] [facility], 7th Floor, [address] [place] [address] 11/08/2025 5:00 PM EST Infusion [facility] [address] [facility], 8th Floor, [address] [place] [address] Nancy Otoole RN [address] [place] [address] [email or web address] 11/22/2025 9:00 AM EST Telemedicine [facility] [address] [facility], 7th Floor, [address] [place] [address] Juliann Esteban MD [address] [place] [phone] [email or web address] documented as of this encounter Procedures Procedure [...] documented as of this encounter Care Teams Neuro Ophthalmologist Relationship Specialty Start Date End Date Yasmin Castillo MD [address] [place] [address] PCP - General Internal Medicine 01/25/22 Juliann Esteban MD [address] [place] [phone] [email or web address] [email or web address] Provider Hematology and Oncology 01/07/24 Nancy Otoole RN [address] [place] [address] [email or web address] Primary Infusion Nurse 01/07/24 Laura Fox RN [address] [place] [address] [email or web address] Associate Infusion Nurse 03/03/24 documented as of this encounter Additional Source Comments The information contained in this document represents components of the legal health record. It is not the complete legal health record.[facility]
--- OUTSIDE RECORDS SUMMARY | 2025-08-24 13:21 | XMS_ITS | Clinical Summary ---
Author Organization [facility] Address [address] [facility] [address] [place] [phone] Phone Care Team Providers Care Inspector Health Care Facilities Name Role Phone Yasmin Castillo MD Primary Care Provider Juliann Esteban MD Unavailable [phone] Nancy Otoole RN Unavailable ofelia Laura Fox RN Unavailable [email or web address] Allergies Active Allergy Reactions Criticality Noted Date [...] Jonnie MUHAMMAD 10/15/22 pa still pending Murray: [id number] - CARRIE Status Sent to Plan on October 11 Drug Pomalyst 4MG capsules 10/16 [facility] denial of pomalyst today. Sending notification [...] Labs reviewed -- Receives IV Feraheme at [facility] per her local field artillery targeting technician. -- Day 1 bevacizumab today. External hemorrhoids. [...] use. --She will schedule IV iron at [facility] per her local field artillery targeting technician in November 2022 when she has a [...] protocol --She will schedule IV iron at [facility] per her local field artillery targeting technician Toxicity profile: Grade 1 mild constipation, likely [...] -- We will schedule V iron at [facility] per her local field artillery targeting technician Toxicity profile: Grade 1 mild constipation, likely [...] study protocol --IV iron as needed at [facility] per her local field artillery targeting technician Toxicity profile: Grade 1 mild constipation, likely [...] study protocol --IV iron as needed at [facility] per her field artillery targeting technician Asthma 04/18/2022 Hypertension 04/18/2022 IBS (irritable bowel syndrome) 04/18/2022 Encounters Date Type Department Care Team Description 08/03/2025 Orders Only VIRTUAL DEPARTMENT [address] [place] [id number] Hali Hooper [facility] 06/22/2025 Orders Only [facility] [address], 7th [address], [address] [place] [address] Juliann Esteban MD from Last 3 Months Social History Tobacco [...] Encounters Date Type Department Care Team (Late Contact Info) Description 09/13/2025 4:15 PM EST Blood Draw [facility] [address], 7th [address], [address] [place] [address] 09/13/2025 5:00 PM EST Infusion [facility] [address], 8th [address], [address] [place] [address] Nancy Otoole RN [address] [place] [address] [email or web address] 11/08/2025 4:15 PM EST Blood Draw [facility] [address], [address]th [address], [address] [place] [address] 11/08/2025 5:00 PM EST Infusion [facility] [address], 8th [address], [address] [place] [address] Nancy Otoole RN [address] [place] [address] 11/22/2025 9:00 AM EST Telemedicine [facility] [address], 7th [address], [address] [place] [address] Juliann Esteban MD [address] [address] [email or web address] Health Maintenance Due Date Last Done Comments LIPID PANEL 1969 DEPRESSION SCREENING 1981 HEPATITIS C SCREENING 1987 HIV ONE-TIME SCREENING (18-65 YEARS) 1987 PNEUMOCOCCAL VACCINES (50+ years) (1 of 2 - PCV) 1988 PAP SMEAR 1990 MAMMOGRAM 2009 COLOGUARD 2014 COLONOSCOPY 2014 COLORECTAL CANCER SCREENING 2014 FIT TEST 2014 FOBT 2014 SIGMOIDOSCOPY 2014 VIRTUAL COLONOSCOPY 2014 RSV VACCINE (1 - Risk 50-74 years 1-dose series) 2019 ZOSTER VACCINES (1 of 2) 2019 BLOOD PRESSURE 03/01/2025 08/31/2024 INFLUENZA VACCINE (#1) 2025 COVID-19 VACCINE ( season) 2025 04/13/2021, 03/25/2021 POTASSIUM LEVEL 05/11/2026 05/11/2025, 1011/2023, 07/06/2024, Additional history exists SCREENING FOR DIABETES [...] Procedure Name Priority Date/Time Associated Diagnosis Comments COMPREHENSIVE METABOLIC PANEL Routine 05/11/2025 9:13 AM EDT HHT (hereditary hemorrhagic telangiectasia) from Last 3 Months or Most Recently Relevant to Health Maintenance Results * (ABNORMAL) Comprehensive metabolic panel (05/11/2025 9:13 AM EDT) SODIUM 140 133 - 146 mmol/L [facility] POTASSIUM 3.3 3.3 - 5.1 mmol/L [facility] CHLORIDE 101 96 - 108 mmol/L [facility] CO2 25 21 - 35 mmol/L [facility] BUN 13 6 - 19 mg/dL [facility] CREATININE 0.70 0.5 - 1.5 mg/dL [facility] GLUCOSE 88 70 - 99 mg/dL [facility] ALBUMIN 4.0 3.9 - 4.8 g/dL [facility] TOTAL PROTEIN 7.6 6.5 - 8.0 g/dL [facility] CALCIUM 10.2 8.4 - 10.3 mg/dL [facility] ALKALINE PHOSPHATASE 121(H) 39 - 117 U/L [facility] TOTAL BILIRUBIN <0.2 0.0 - 1.2 mg/dL [facility] AST 28 0 - 37 U/L [facility] ALT 22 0 - 40 U/L [facility] GLOBULIN 3.6 1 - 4.8 g/dL [facility] EGFR 102 >59 mL/min/1.7 3m2 [facility] Comment:Estimated glomerular filtration rate calculated using the CKD-EPI refit equation. ANION GAP 17 10 - 20 mmol/L [facility] Blood 05/11/2025 9:13 AM EDT 05/11/2025 9:17 AM EDT us Juliann Esteban MD LAB BLOOD ORDERABLES Final R esult [facility] [address] [place], [place] [phone] from Last 3 Months or Most Recently Relevant to Health Maintenance Insurance [employer] [facility] [employer]AT[facility] [employer] [facility] [employer] [employer] [facility] [employer] [employer] ADMIN[employer] ADMINIST[employer]ORS [facility] BENEFITS ADMINISTRATORS Care Teams Inspector Health Care Facilities Relationship Specialty Start Date End Date Yasmin Castillo MD [address] [facility] [place] [address] PCP - General Internal Medicine 01/25/22 Juliann Esteban MD [address] [place] [id number] [email or web address] Consulting Provider Hematology and Oncology 01/07/24 Nancy Otoole RN [address] [place] [address] [email or web address] Primary Infusion Nurse 01/07/24 Laura Fox RN [address] [place] [address] [email or web address] Associate Infusion Nurse 03/03/24 Additional Source Comments The information contained in this document represents components of the legal health record. It is not the complete legal health record.[facility]
== END 2025-08-24 12:44 | disposition home or self-care (01) ==
LOC: HO.HMCC 11:04
PROVIDERS: PCP Internal Medicine; Visit Provider Internal Medicine
DX: E87.6 Hypokalemia (principal); E89.0 Postprocedural hypothyroidism; E55.9 Vitamin D deficiency, unspecified

== ENCOUNTER 2025-08-25 09:25 | Outpatient (REF) | payer OTHER, SELFPAY ==
[2025-08-25 13:07] LABS: MANUAL DIFF FLAG NO
[2025-08-25 13:18] LABS: Hematocrit 44.1 % (37.0-47.0); Hemoglobin 14.2 g/dl (12.0-16.0); Imm Gran Abs Auto 0.02 X10*3/uL (0.00-0.03); Imm Gran Pct Auto 0.4 % (0.0-0.4); Lymphocytes Absolute Auto 1.3 X10*3/uL (1.2-4.9); Mean Corpuscular HGB Conc 32.2 g/dl (31.0-35.0); Mean Corpuscular Hemoglobin 29.5 pg (27.0-33.0); Mean Corpuscular Volume 91.5 fL (80.0-98.0); NRBC Abs Auto 0.000 X10*3/uL (0.0-0.012); NRBC Pct Auto 0.0 /100WBC (0.0-0.2); Platelet Count 291 X10*3/uL (160-400); Red Blood Count 4.82 X10*6/uL (4.20-5.50); White Blood Count 5.1 X10*3/uL (4.8-10.8)
[2025-08-25 14:11] LABS: Alanine Aminotransferase 27 U/L (0-31); Anion Gap 10 (12-20); Aspartate Amino Transferase 45 U/L (5-31); Blood Urea Nitrogen 9 mg/dL (9-16); Calcium 9.0 mg/dL (8.4-10.2); Carbon Dioxide 20 mmol/L (22-29); Chloride 111 mmol/L (96-108); Cholesterol 145 mg/dL (<200); Estimated Glomerular Filt Rate > 60; Free T4 (Free Thyroxine) 1.08 ng/dL (0.71-1.85); HDL Cholesterol 37 mg/dL (>40); Potassium 4.2 mmol/L (3.3-5.1); Sodium 137 mmol/L (135-145); Thyroid Stimulating Hormone 0.36 uIU/mL (0.32-4.0); Triglycerides 154 mg/dL (<150)
== END 2025-08-25 09:26 | disposition home or self-care (01) ==
LOC: HO.HMGCLDS 09:25
PROVIDERS: PCP Internal Medicine; Visit Provider Internal Medicine
DX: I78.0 Hereditary hemorrhagic telangiectasia (principal); E55.9 Vitamin D deficiency, unspecified; E89.0 Postprocedural hypothyroidism; E28.319 Asymptomatic premature menopause; I10 Essential (primary) hypertension
CPT/HCPCS: 36415; 80048; 80061; 82306; 84439; 84443; 84450; 84460; 85025

== ENCOUNTER 2025-10-15 15:14 | Outpatient (AMB) | payer OTHER, SELFPAY ==
--- NOTE | 2025-10-15 15:16 | A.OFFVIS_ITS ---
Vital Signs 10/15/25 15:17 Height 5 ft 2 in Weight 146 lb BMI 26.7 BP 136/90 H Blood Pressure Location Rt brachial Position Sitting Pulse 84 Pulse Source Pulse Oximeter Pulse Oximetry (%) 98 Oxygen Delivery Method Room Air Intake Visit Reasons: 3m f/u Intake Note: ESTABLISHED PATIENT for mgmt of Liver Abn and IBS. Chief Complaint; Pt denies any new GI concerns or sx at this time. Collection Systems Foreman Required: No Accompanied by: Self / Same As Patient Allergies iodine (IODINE) Allergy (Severe, Verified 10/15/25 15:22) ANAPHYLAXIS shellfish derived (SHELLFISH DERIVED) Allergy (Severe, Verified 10/15/25 15:22) ANAPHYLAXIS oxycodone Allergy (Mild, Verified 10/15/25 15:22) Itching Sulfa (Sulfonamide Antibiotics) Allergy (Mild, Verified 10/15/25 15:22) Diarrhea coconut Adverse Reaction (Unknown, Uncoded 10/15/25 15:22) sensativity HPI HPI 3m f/u: Details: LAST VISIT: IBS (irritable bowel syndrome) Hereditary hemorrhagic telangiectasia Liver mass Liver cyst Postprandial abdominal bloating Plan Will inquire about MRI reading to see if another radiologist can read the study. Patient will start taking Dulcolax daily as she does not empty her bowels completely. Increase fluid intake and activity to promote better bowel motility. Follow low FODMAP diet. Patient will follow-up in 3 months, sooner on as needed basis. She is agreeable to this plan and verbalizes understanding of instructions. She was given the opportunity to ask questions and all questions answered. ? Thank you for allowing me to participate in her care New bisacodyl (Dulcolax (bisacodyl)) 10 mg (2 x 5 mg) PO BEDTIME 180 tabs 4RF TODAY'S VISIT: Patient is here today for follow-up. Patient reports that she has been doing fairly well. Patient reports that from time to time she might be constipated, however she tries to increase fluid intake and takes supplements to help her. Patient also is trying to avoid certain dietary triggers. Looking at the food that could be irritating her bowels. His overall patient reports that she has been doing well. She is still following with [place] goes there frequently. Patient denies melena, hematochezia, unintentional weight loss or ribbon like stools. Patient denies dyspepsia, dysphagia or odynophagia. [facility] Medical History Brain fog Depression Dyspareunia in female Left medial knee pain Lumbago Post-surgical hypothyroidism Fatigue Hypothyroidism Symptomatic premature menopause Thyroid nodule greater than or equal to 1.5 cm in diameter incidentally noted on imaging study Intermittent lightheadedness Anxiety and depression Arthralgia of both hands Migraine Chronic rhinitis Vitamin D deficiency Recurrent sinusitis Environmental and seasonal allergies IBS (irritable bowel syndrome) Mild intermittent asthma Essential hypertension Hereditary hemorrhagic telangiectasia Surgical History Hx of thyroidectomy History of biopsy Hx of colonoscopy S/P correction of deviated nasal septum H/O umbilical hernia repair Hx of cholecystectomy Family History Father Prostate cancer Diabetes mellitus Hereditary hemorrhagic telangiectasia PTSD (post-traumatic stress disorder) Essential hypertension Substance use disorder Mental health disorder Mother Osteoporosis Ovarian cancer Brother Hereditary hemorrhagic telangiectasia Essential hypertension IBS (irritable bowel syndrome) Daughter Substance use disorder Mental health disorder Social History Household Members: Spouse Housing: House Alcohol intake: former Patient Tobacco Use Status: Never used Tobacco e-Cigarette/Vaping Use: Never Used service: No Current occupational status: employed 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 identity: Female Cognitive needs: No Hearing needs: No Vision needs: Yes Female Reproductive History Menstrual Age of Menarche: 11 Review of Systems Const Denies weight gain and Denies weight loss ENT Reports no additional complaints, Denies dysphagia and Denies odynophagia Card Reports no additional complaints Resp Reports no additional complaints GI Denies abdominal pain, Denies belching, Denies melena, Denies bloating, Denies change in bowel habits, Denies dysphagia, Denies excessive flatus, Denies dyspepsia, Denies heartburn, Denies diarrhea, Reports loose stools (Postprandially), Denies nausea, Denies odynophagia and Denies vomiting Musc Reports no additional complaints Neuro Reports no additional complaints Psych Reports no additional complaints Endo Reports no additional complaints Physical Exam Vital Signs: Last Vital Signs Pulse 84 10/15/25 15:17 BP 136/90 H 10/15/25 15:17 Pulse Ox 98 10/15/25 15:17 Oxygen Delivery Method Room Air 10/15/25 15:17 BMI result Body Mass Index 26.7 Const General: healthy appearing, no acute distress and well developed Nutritional Appearance: well nourished Orientation/consciousness: patient oriented x3 Resp Effort & Inspection: normal respiratory effort, able to speak in complete sentences, no tracheal deviation and symmetric chest movement Auscultation: clear to auscultation bilaterally Cardio Rate: regular rate GI Inspection: Yes normal to inspection and No distended Palpation (GI): Soft to palpation, not firm, nontender and No hepatosplenomegaly present Auscultation: normal bowel sounds General: Yes no CVA tenderness Back/Spine/Pelvis Back: no CVA tenderness Skin General skin exam: elasticity normal, turgor normal and dry skin Neuro General: patient oriented x3 Psych Appearance: grossly normal Mental Status: mental status grossly normal Assessment & Plan Assessment & Plan (1) IBS (irritable bowel syndrome): Code(s): K58.9 - Irritable bowel syndrome, unspecified Category: Medical Qualifiers: Irritable bowel syndrome type: with both diarrhea and constipation Q ualified Code(s): K58.2 - Mixed irritable bowel syndrome Plan Continue avoiding dietary triggers and late night snacking. Staying upright for minimal 3 hours after meals discussed with patient. Patient will continue trying a low FODMAP diet. May use hydrocortisone if hemorrhoids are becoming more active. Patient will return in 6 months, however she was encouraged to call us if she will have any GI concerning symptoms. She is agreeable to this plan and verbalizes understanding of instructions. She was given the opportunity to ask questions and all questions answered. Thank you for allowing me to participate in her care Medications: New hydrocortisone 2.5% (Proctosol HC) 1 appl AR BID-QID PRN 30 grams 2RF hemorrhoids K64.9 - Unspecified hemorrhoids Coding Level of Care Code Est Pt Level 3 (73975) Diagnoses Irritable bowel syndrome with both constipation and diarrhea K58.2 Irritable bowel syndrome type: with both diarrhea and constipation Time Spent (min) 30 Comment 20 minutes spent with patient and additional 10 minutes spent reviewing her records
[2025-10-15 15:17] VITALS: BP 136/90; PULSE 84; O2SAT 98; BMI 26.7
--- OUTSIDE RECORDS SUMMARY | 2025-10-15 19:11 | XMS_ITS | Encounter Summary ---
Author Organization [facility] Address [address] [facility] [address] [place] [phone] Phone Care Team Providers Care Felt Finishing Supervisor Name Role Phone Yasmin Castillo MD Primary Care Provider Juliann Esteban MD Unavailable [phone] Nancy Otoole RN Unavailable [email or web address] Laura Fox RN Unavailable [email or web address] Encounter Details Date Type Department Care Team (Late st Contact Info) Description 08/03/2022 Documentation [facility] Center for Hematology [address] [place] [address], 7th Floor, [address] [place] [address] Hollie White RN [email or web address] Social History Tobacco Use Types Packs/Day Years [...] Care Team (Late st Contact Info) Description 11/12/2025 4:45 PM EST Blood Draw [facility] [address] [place] [address], 7th Floor, [address] [place] [address] 11/12/2025 5:30 PM EST Infusion [facility] [address] [facility] [address], 8th Floor, [address] [place] [address] Laura Fox RN [address] [place] [address] [email or web address] 11/22/2025 9:00 AM EST Telemedicine [facility] Center for [facility]ology [address] [facility], 7th Floor, [address] [place] [address] Juliann Esteban MD [address] [facility] [address] [place] [address] [email or web address] documented as of this encounter Procedures Procedure Name Priority Date/Time Associated Diagnosis Comments SARS-COV-2 (COVID-19) AG BINAXNOW Routine 07/28/2022 3:18 PM EDT documented in this encounter Results * (ABNORMAL) SARS-CoV-2 (COVID-19) Antigen (BinaxNOW) (07/28/2022 3:18 PM EDT) Source Nasal swab SARS-CoV-2 (COVID-19) antigen POSITIVE - Internal QCs acceptable(A ) NEGATIVE - Internal QCs acceptable 07/28/2022 3:18 PM EDT us Historical Provider LAB POCT ENTER/EDIT ORDER KARLOS Final Result documented in this encounter Visit Diagnoses Not on filedocumented in this encounter Additional Health Concerns Infection Onset Date Last Indicated Resolved Time CoV-Presumed 07/28/2022 07/28/2022 08/18/2022 1:22 AM EDT documented as of this encounter Care Teams Felt Finishing Supervisor Relationship Specialty Start Date End Date Yasmin Castillo MD [address] [place] [address] PCP - General Internal Medicine 01/25/22 Juliann Esteban MD [address] [place] [address] [email or web address] Consulting Provider Hematology and Oncology 01/07/24 Nancy Otoole RN [address] [place] [address] [email or web address] Primary Infusion Nurse 01/07/24 Laura Fox RN [address] [place] [address] [email or web address] Associate Infusion Nurse 03/03/24 documented as of this encounter Additional Source Comments The information contained in this document represents components of the legal health record. It is not the complete legal health record.[facility]
--- OUTSIDE RECORDS SUMMARY | 2025-10-15 19:12 | XMS_ITS | Encounter Summary ---
Author Organization [facility] Address [address] [place] [address] Phone Care Team Providers Care Atmospheric Physicist Name Role Phone Yasmin Castillo MD Primary Care Provider Juliann Esteban MD Unavailable [phone] aNncy Otoole RN Unavailable [email or web address] Laura Fox RN Unavailable [email or web address] Encounter Details Date Type Department Care Team (Late st Contact Info) Description 09/13/2025 Orders Only [facility] [address] [facility], 7th Floor, [address] [place] [address] Juliann Esteban MD [address] [facility] [address] [place] [address] [email or web address] Social History Tobacco Use Types Packs/Day Years [...] Description 11/12/2025 4:45 PM EST Blood Draw [facility] [address] [facility], 7th Floor, [address] [place] [address] 11/12/2025 5:30 PM EST Infusion [address], 8th Floor, [address] [place] [address] Laura Fox RN [address] [place] [address] [email or web address] 11/22/2025 9:00 AM EST Telemedicine [facility] [address] [place] [address], 7th Floor, [address] [place] [address] Juliann Esteban MD [address] [place] [address] [email or web address] documented as of this encounter Visit Diagnoses Not on filedocumented in this encounter Care Teams Atmospheric Physicist Relationship Specialty Start Date End Date Yasmin Castillo MD [facility] [place] [address] PCP - General Internal Medicine 01/25/22 Juliann Esteban MD [address] [place] [phone] [email or web address] Consulting Provider Hematology and Oncology 01/07/24 Nancy Otoole RN [address] [place] [address] Primary Infusion Nurse 01/07/24 Laura Fox, RN [address] [place] [address] [email or web address] Associate Infusion Nurse 03/03/24 documented as of this encounter Additional Source Comments The information contained in this document represents components of the legal health record. It is not the complete legal health record.[facility]
--- OUTSIDE RECORDS SUMMARY | 2025-10-15 19:12 | XMS_ITS | Clinical Summary ---
Author Organization [facility] Address [address] [facility] [address] [place] [address] Phone Care Team Providers Care Manager Billing Name Role Phone Yasmin Castillo MD Primary Care Provider Juliann Esteban MD Unavailable [phone] Nancy Otoole RN Unavailable ofelia Laura Fox RN Unavailable [email or web address] Allergies Active Allergy Reactions Criticality Noted [...] Jonnie MUHAMMAD 10/15/22 pa still pending Murray: [id number] - CARRIE Status Sent to Plan on October 11 Drug Pomalyst 4MG capsules 10/16 [facility] denial of pomalyst today. Sending notification to [...] Labs reviewed -- Receives IV Feraheme at [facility] per her local turbo generator oiler. -- Day 1 bevacizumab today. External hemorrhoids. [...] use. --She will schedule IV iron at [facility] per her local turbo generator oiler in November 2022 when she has a [...] protocol --She will schedule IV iron at [facility] per her local turbo generator oiler Toxicity profile: Grade 1 mild constipation, likely [...] -- We will schedule V iron at [facility] per her local turbo generator oiler Toxicity profile: Grade 1 mild constipation, likely [...] study protocol --IV iron as needed at [facility] per her local turbo generator oiler Toxicity profile: Grade 1 mild constipation, likely [...] study protocol --IV iron as needed at [facility] per her turbo generator oiler Asthma 04/18/2022 Hypertension 04/18/2022 IBS (irritable bowel syndrome) 04/18/2022 Encounters Date Type Department Care Team Description 09/13/2025 5:00 PM EST Infusion [facility] [address] [facility], 8th Floor, [address] [place] [address] Unknown, Unknown, Haley, Mervat Pitt RN HHT (hereditary hemorrhagic telangiectasia) (Primary Dx) 09/13/2025 Orders Only [facility] [address] [facility], 7th Floor, [address] [place] [address] Juliann Esteban MD 08/03/2025 Orders Only [facility] [address] [place] [id number] H[facility] Hooper [facility] from Last 3 Months Social History Tobacco [...] Sign Reading Time Taken Comments Blood Pressure 140/82 09/13/2025 4:31 PM EST Pulse 71 09/13/2025 4:31 PM EST Temperature 36.3 C (97.3 F) 09/13/2025 4:31 PM EST Respiratory Rate 18 09/13/2025 4:31 PM EST Oxygen Saturation 98% 09/13/2025 4:31 PM EST Inhaled Oxygen Concentration - - Weight 64.8 kg (142 lb 14.4 oz) 09/13/2025 4:31 PM EST Height 155 cm (5' 1.02 ) 08/31/2024 11: 37 AM EDT Body Mass Index 26.98 08/31/2024 11:37 AM EDT Plan of Treatment Upcoming Encounters Date Type Department Care Team (Late st Contact Info) Description 11/12/2025 4:45 PM EST Blood Draw [facility] [address] [facility], 7th Floor, [address] [place] [address] 11/12/2025 5:30 PM EST Infusion [facility] [address] [facility], 8th Floor, [address] [place] [address] Laura Fox, RN [address] [place] [address] [email or web address] 11/22/2025 9:00 AM EST Telemedicine [facility] [address] [facility], 7th Floor, [address] [place] [address] Juliann Esteban MD [address] [address] [email or web address] Health Maintenance Due Date Last Done Comments [...] 2019 ZOSTER VACCINES (1 of 2) 2019 INFLUENZA VACCINE (#1) 2025 COVID-19 VACCINE (3 - 2024- season) 2025 04/13/2021, 03/25/2021 BLOOD PRESSURE 03/13/2026 09/13/2025 POTASSIUM LEVEL 09/13/2026 09/13/2025, 07/0 11/2024, 08/31/2024, Additional history exists SCREENING FOR DIABETES 09/13/2028 09/13/2025 Adult Td,Tdap Booster 11/19/2028 11/19/2018, 018 SMOKING [...] Date/Time Associated Diagnosis Comments URINE SEDIMENT Routine 09/13/2025 4:14 PM EST HHT (hereditary hemorrhagic telangiectasia) Iron deficiency anemia secondary to blood loss (chronic) CBC AND DIFFERENTIAL Routine 09/13/2025 4:14 PM EST HHT (hereditary hemorrhagic telangiectasia) Iron deficiency anemia secondary to blood loss (chronic) URINALYSIS Today 09/13/2025 4:14 PM EST HHT (hereditary hemorrhagic telangiectasia) Iron deficiency anemia secondary to blood loss (chronic) COMPREHENSIVE METABOLIC PANEL (CMP) Routine 09/13/2025 4:14 PM EST HHT (hereditary hemorrhagic telangiectasia) Iron deficiency anemia secondary to blood loss (chronic) CBC AND DIFFERENTIAL Routine 09/13/2025 4:14 PM EST HHT (hereditary hemorrhagic telangiectasia) Iron deficiency anemia secondary to blood loss (chronic) from Last 3 Months Results * (ABNORMAL) Urine Sediment (09/13/2025 4:14 PM EST) RBC 0-2 0 - 2 /hpf 09/13/2025 4:59 PM EST [facility] WBC 0-2 0 - 9 /hpf 09/13/2025 4:59 PM EST [facility] Squamous Epithelial Cells 1-2(A) Not Present /hpf 09/13/2025 4:59 PM EST [facility] Bacteria 1+(A) Negative /hpf 09/13/2025 4:59 PM [facility] Urine (Urine, Voided) Non-Blood Collection / Unknown 09/13/2025 4:14 PM EST 09/13/2025 4:41 PM EST us Juliann Esteban MD LAB URINE ORDERABLES Final R esult [address] [address] * (ABNORMAL) Comprehensive Metabolic Panel (CMP) (09/13/2025 4:14 PM EST) Sodium 138 136 - 145 mmol/L 09/13/2025 4:48 PM [facility] Potassium 3.7 3.4 - 5.1 mmol/L 09/13/2025 4:48 PM [facility] Chloride 107 98 - 107 mmol/L 09/13/2025 4:48 PM [facility] CO2 19(L) 20 - 31 mmol/L 09/13/2025 4:48 PM [facility] Anion Gap 12 3 - 17 mmol/L 09/13/2025 4:48 PM [facility] BUN 9 6 - 23 mg/dL 09/13/2025 4:48 PM [facility] Creatinine 0.70 0.50 - 1.00 mg/dL 09/13/2025 4:48 PM [facility] eGFR 102 >59 mL/min/1. 73m2 09/13/2025 4:48 PM [facility] Comment:Estimated glomerular filtration rate calculated using the CKD-EPI refit equation. Glucose 105(H) 70 - 99 mg/dL 09/13/2025 4:48 PM [facility] Calcium 8.7 8.5 - 10.5 mg/dL 09/13/2025 4:48 PM [facility] AST 23 9 - 32 U/L 09/13/2025 4:48 PM [facility] ALT 17 7 - 33 U/L 09/13/2025 4:48 PM [facility] Alkaline Phosphatase 107 40 - 130 U/L 09/13/2025 4:48 PM [facility] Bilirubin, Total 0.3 0.0 - 1.2 mg/dL 09/13/2025 4:48 PM [facility] Total Protein 6.6 6.4 - 8.3 g/dL 09/13/2025 4:48 PM [facility] Albumin 3.7 3.5 - 5.2 g/dL 09/13/2025 4:48 PM [facility] Globulin 2.9 1.9 - 4.1 g/dL 09/13/2025 4:48 PM [facility] Blood 09/13/2025 4:14 PM EST 09/13/2025 4:19 PM EST us Juliann Esteban MD LAB BLOOD BKR ORDERABLES Fin al Result [address] [address] * CBC and Differential (09/13/2025 4:14 PM EST) WBC 6.05 4.00 - 11.00 K/uL 09/13/2025 4:22 PM [facility] RBC 4.56 4.00 - 5.20 M/uL 09/13/2025 4:22 PM [facility] Hemoglobin 14.0 12.0 - 16.0 g/dL 09/13/2025 4:22 PM [facility] Hematocrit 40.7 36.0 - 46.0 % 09/13/2025 4:22 PM [facility] MCV 89.3 80.0 - 100.0 fL 09/13/2025 4:22 PM [facility] MCH 30.7 27.0 - 31.0 pg 09/13/2025 4:22 PM [facility] MCHC 34.4 32.0 - 36.0 g/dL 09/13/2025 4:22 PM [facility] MPV 9.0 8.4 - 12.0 fL 09/13/2025 4:22 PM [facility] RDW-CV 12.3 11.5 - 14.5 % 09/13/2025 4:22 PM [facility] PLT 283 150 - 450 K/uL 09/13/2025 4:22 PM [facility] Neutrophils 57.8 % 09/13/2025 4:22 PM [facility] Lymphocytes 31.7 % 09/13/2025 4:22 PM [facility] Monocytes 7.8 % 09/13/2025 4:22 PM [facility] Eosinophils 1.7 % 09/13/2025 4:22 PM [facility] Basophils 0.7 % 09/13/2025 4:22 PM [facility] Imm Grans 0.3 % 09/13/2025 4:22 PM [facility] NRBC 0.0 <=0.0 /100 WBCs 09/13/2025 4:22 PM [facility] Absolute Neutrophils 3.50 1.92 - 7.60 K/uL 09/13/2025 4:22 PM [facility] Absolute Lymphocytes 1.92 0.72 - 4.10 K/uL 09/13/2025 4:22 PM [facility] Absolute Monocytes 0.47 0.16 - 1.10 K/uL 09/13/2025 4:22 PM [facility] Absolute Eosinophils 0.10 0.00 - 0.50 K/uL 09/13/2025 4:22 PM [facility] Absolute Basophils 0.04 0.00 - 0.15 K/uL 09/13/2025 4:22 PM [facility] Absolute Imm Grans 0.02 0.00 - 0.09 K/uL 09/13/2025 4:22 PM [facility] Absolute NRBC 0.00 <=0.00 K cells/uL 09/13/2025 4:22 PM [facility] Absolute Neutrophils 3.50 1.92 - 7.60 K/uL 09/13/2025 4:22 PM [facility] Comment:Automated cell count . Manual ANC may differ if performed. Diff Type Auto 09/13/2025 4:22 PM [facility] Blood 09/13/2025 4:14 PM EST 09/13/2025 4:19 PM EST us Juliann Esteban MD LAB BLOOD BKR ORDERABLES Fin al Result [address] [address] * (ABNORMAL) Urinalysis (09/13/2025 4:14 PM EST) Color Yellow Yellow 09/13/2025 5:01 PM [facility] Clarity Clear Clear 09/13/2025 5:01 PM [facility] Glucose Negative Negative 09/13/2025 5:01 PM [facility] Bilirubin Urine Negative Negative 5:01 PM [facility] Ketone Urine Negative Negative 09/13/2025 5:01 PM [facility] Specific [place] <=1.005 1.001 - 1.035 09/13/2025 5:01 PM [facility] Blood 1+(A) Negative 09/13/2025 5:01 PM [facility] pH 6.0 5.0 - 8.0 09/13/2025 5:01 PM [facility] Protein Negative Negative 09/13/2025 5:01 PM [facility] Nitrites Negative Negative 09/13/2025 5:01 PM [facility] Leukocyte Esterase Negative Negative 09/13/2025 5:01 PM [facility] Urobilinogen Negative Negative 09/13/2025 5:01 PM [facility] Urine (Urine, Voided) Non-Blood Collection / Unknown 09/13/2025 4:14 PM EST 09/13/2025 4:41 PM EST Juliann Esteban MD LAB URINE ORDERABLES Final R esult [address] [address] from Last 3 Months Insurance [email or web address]MINIST[email or web address] [address] [address] [address] [email or web address] Care Teams Manager Billing Relationship Specialty Start Date End Date Yasmin Castillo MD [address] [facility] [place] [address] PCP - General Internal Medicine 01/25/22 Juliann Esteban MD [address] [place] [address] [email or web address] [email or web address] Provider Hematology and Oncology 01/07/24 Nancy Otoole, RN [address] [place] [address] [email or web address] Primary Infusion Nurse 01/07/24 Laura Fox, SABINA [address] [place] [address] [email or web address] Associate Infusion Nurse 03/03/24 Additional Source Comments The information contained in this document represents components of the legal health record. It is not the complete legal health record.[facility]
--- OUTSIDE RECORDS SUMMARY | 2025-10-15 19:12 | XMS_ITS | Encounter Summary ---
Author Organization [facility] Address [address] [facility] [address] [place] [phone] Phone Care Team Providers Care Marketing Campaign Analyst Name Role Phone Yasmin Castillo MD Primary Care Provider Juliann Esteban MD Unavailable [phone] Nancy Otoole RN Unavailable [email or web address] Laura Fox RN Unavailable [email or web address] Encounter Details Date Type Department Care Team (Late st Contact Info) Description 05/16/2022 Documentation [facility] [address] [place] [address], 7th Floor, [address] [place] [address] Hollie White RN [email or web address] Social History Tobacco Use Types Packs/Day Years [...] Description 11/12/2025 4:45 PM EST Blood Draw [facility] [address] [place] [address], 7th Floor, [address] [place] [address] 11/12/2025 5:30 PM EST Infusion [facility] [address] [facility], 8th Floor, [address] [place] [address] Laura Fox RN [address] [place] [address] [email or web address] 11/22/2025 9:00 AM EST Telemedicine [facility] [address] [facility], 7th Floor, [address] [place] [address] Juliann Esteban MD [address] [facility] [address] [place] [address] [email or web address] documented as of this encounter Visit Diagnoses Not on filedocumented in this encounter Additional Health Concerns Infection Onset Date Last Indicated Resolved Time CoV-Presumed 07/28/2022 07/28/2022 08/18/2022 1:2 2 AM EDT documented as of this encounter Care Teams Marketing Campaign Analyst Relationship Specialty Start Date End Date Yasmin Castillo MD 1962 [facility] [place] [address] PCP - General Internal Medicine 01/25/22 Juliann Esteban MD [address] [facility] [address] [place] [address] [email or web address] [email or web address] Provider Hematology and Oncology 01/07/24 Nancy Otoole RN [address] [place] [address] Primary Infusion Nurse 01/07/24 Laura Fox RN [address] [place] [address] [email or web address] Associate Infusion Nurse 03/03/24 documented as of this encounter Additional Source Comments The information contained in this document represents components of the legal health record. It is not the complete legal health record.[facility]
== END 2025-10-15 16:08 | disposition home or self-care (01) ==
LOC: HO.HGI 15:15
PROVIDERS: PCP Internal Medicine; Visit Provider Nurse Practitioner Family
DX: K58.2 Mixed irritable bowel syndrome (principal)
CPT/HCPCS: 99213